=== PATIENT | male | born 1975 ===

== ENCOUNTER 2024-01-29 16:50 | Inpatient (IN) ==
--- NOTE | 2024-01-29 17:08 | ED Triage Note ---
Date of Service January 29, 2024 Provider in Triage Author: Mike Her History of Present Illness This patient was briefly evaluated while in triage. An abbreviated physical exam was performed. This patient is a 48-year-old Male who presents to the ED for evaluation at 1300, has had episodes of headache, pain/burning around left eye, right facial droop and weakness in right arm and leg last for less than 10 minutes, coming and going currently asymptomatic Physical Exam GENERAL: NAD, seated in wheelchair CARDIOVASCULAR: RRR RESPIRATORY: CTA NEURO: no facial droop, speech clear, no extremity weakness Initial orders for labs and / or imaging were placed and patient was placed in the waiting area until a bed is available. Please see further documentation for the full ED course. MDM / Impression Impression Impression: Stroke-like symptoms, Hypertensive emergency
[2024-01-29] MEDS: OPTIRAY 320 125ml IV ONE (17:27)
[2024-01-29 17:45] LABS: Basophils % (auto) 1.1 %; Eosinophils # (auto) 0.18 K/uL (0.00-0.50); Eosinophils % (auto) 1.9 %; Hematocrit (blood only) 39.7 % (42.0-52.0); Hemoglobin 13.1 g/dl (14.0-18.0); Immature Granulocytes # (auto) 0.02 K/uL (0.01-0.20); Immature Granulocytes % (auto) 0.2 %; Lymphocytes # (auto) 2.32 K/uL (1.20-3.40); Lymphocytes % (auto) 24.5 %; Mean Corpuscular Hemoglobin 28.9 pg (25.0-34.0); Mean Corpuscular Volume 87.6 fL (80.0-100.0); Mean Platelet Volume 10.8 fL (9.4-12.4); Monocytes # (auto) 0.62 K/uL (0.11-0.59); Monocytes % (auto) 6.6 %; Neutrophils # (auto) 6.22 K/uL (1.40-6.50); Neutrophils % (auto) 65.7 %; Platelet Count 280 K/uL (130-400); RDW Coefficient of Variation 12.8 % (11.5-14.5); RDW Standard Deviation 41.1 fL (36.4-46.3); Red Blood Count 4.53 M/uL (4.70-6.10); White Blood Count 9.46 K/ul (4.8-10.8)
--- NOTE | 2024-01-29 17:45 | CT Scan Report ---
Head CT without contrast CT angiogram of the neck CT angiogram of the brain with contrast Provided History: Neuro deficit Comparison: None Technique: HEAD CT: Using multidetector thin collimation helical acquisition technique, axial, coronal and sagittal CT images from the skull base to the vertex were obtained without intravenous contrast. HEAD and NECK CTA: During rapid bolus intravenous injection of nonionic contrast material, axial images were obtained using thin collimation multidetector helical technique from the base of the neck through the Vertex of vertex of the head. This CT angiogram data was reconstructed at thin intervals with mild overlap. 3D reconstructions were obtained. The axial source images, multiplanar reformations, 3D reconstructions in both maximum intensity projection display and volume rendered models were reviewed. Dose reduction techniques were achieved by using automatic exposure control and/or adjustment of mA and/or kV according to patient size and/or use of iterative reconstruction technique. Findings: Head CT: There is no intracranial hemorrhage, mass effect, or midline shift. Ray/white matter differentiation in both cerebral hemispheres is preserved. Ventricles are proportionate to the cerebral sulci. Head CTA demonstrates no aneurysm or stenosis of the major intracranial arteries. Neck CTA demonstrates no stenosis of the major cervical arteries. The origins of the great vessels from the aortic arch are patent. The normal distal right internal carotid artery measures 5 mm. The normal distal left internal carotid artery measures 5 mm. No mass is noted within the visualized portions of the cervical soft tissues or lung apices. Impression: 1. Head CTA demonstrates no aneurysm or stenosis of the major intracranial arteries, 2. Neck CTA demonstrates no stenosis of the major cervical arteries. 3. No intracranial hemorrhage on the noncontrast head CT. The study was analyzed using artificial intelligence software for large vessel occlusion detection. Findings discussed with the emergency room physician at 5:45 PM, 01/29/[address] Gerardo Electronically signed by Napoleon Gerardo 01-29-2024 5:45 PM
[2024-01-29 17:46] LABS: iSTAT Creatinine 0.8 mg/dl (0.6-1.3); iSTAT Hemoglobin 13.9 g/dl (14.0-18.0); iSTAT Ionized Calcium 1.14 mmol/l (1.12-1.32); iSTAT Potassium 3.6 mmol/L (3.3-5.0)
[2024-01-29] MEDS: LABETALOL HCL IV 5 MG/ML 20ML IV STA ×3 (17:49→18:29)
[2024-01-29] MEDS: LABETALOL HCL IV 5 MG/ML 20ML IV ONE (17:50)
--- NOTE | 2024-01-29 17:54 | Emergency Department Note ---
Impression & Plan Stroke-like symptoms, Hypertensive emergency ED Provider Note Provider: Mike Her MD DATE OF SERVICE: 01/29/2024 CHIEF COMPLAINT: Neurosymptoms HISTORY OF PRESENT ILLNESS: Patient is a 48-year-old gentleman denies medical history presenting here since 1 PM to experiencing pain around the left eye and intermittent episodes of numbness of the right face arm and leg with some weakness right arm and leg. Some slurred speech at times. No history of similar. No syncope or trauma. Symptoms lasted maybe 10 or 15 minutes and then resolved. No history of similar. No significant left arm or leg reported. No nausea or vomiting. No alcohol use reported today. Not on blood pressure medicine. Here with friend. PAST MEDICAL HISTORY: As noted above MEDICATIONS: None reported SOCIAL HISTORY: Denies smoking PHYSICAL EXAM: GENERAL: alert and oriented on stretcher, occasionally with a slight tremor Head: normocephalic and atraumatic EYES: No injection, discharge or icterus. PERRL, EOMI. NECK: Trachea midline. Supple. ENT: Mucous membranes pink and moist. Pharynx without erythema or exudate. LUNGS: Airway patent. No retractions. Breath sounds clear with good air entry bilaterally. HEART: Regular rate and rhythm. No chest wall tenderness ABDOMEN: Soft and non-tender, without guarding or rebound. SKIN: Acyanotic, warm, dry, without rashes EXTREMITIES: Without swelling, tenderness or deformity NEUROLOGICAL: Some slurred speech. No aphasia. Some weakness of the right leg and arm on exam. No obvious facial droop with midline tongue on exam. EK bpm normal sinus rhythm with LVH changes without acute ST segment elevation. Some nonspecific lateral T wave inversions. QTc 415. CONTINUOUS CARDIAC MONITORING: was ordered and showed a heart rate of 60s to 90s bpm in normal sinus rhythm Patient's laboratory studies and imaging reviewed. Differential includes Infection, dehydration, metabolic abnormality, hypo/hyperglycemia, electrolyte disturbance, anemia, hypoxia, cardiac sources, intracerebral event, toxicologic, neurologic, as well as other pathologies. IMPRESSION/MEDICAL DECISION MAKING: Stroke alert from triage. Severely hypertensive upon arrival. Having some waxing waning symptoms over the course of this afternoon. Occasional little bit drowsy but no LOC. CT head and CT angiograms obtained without acute findings per radiology. No reports of LVO. Discussed with telestroke case who evaluated the patient. Given some IV labetalol here upon returning from CT scan. Last known well 1 PM but again with waxing waning symptoms are occurring. Is seemingly returning to more normal status and the symptoms recur. No seizure activity or trauma reported. Afebrile. No substance use reported. No history of similar reported. Question of this could be some other pathology possibly hypertensive emergency/press. Blood work here without anemia or leukocytosis. Normal platelet count. No severe electrolyte abnormalities noted. Alcohol level not elevated. Telestroke evaluated given the significant waxing waning symptoms with recurrence after discussion risk and benefits patient did elect to proceed with thrombolysis. TNK ordered. In addition IV labetalol IV hydralazine used to try to control blood pressure which is still elevated making TN K use initially somewhat difficult. Nicardipine drip ordered and will be utilized as necessary for blood pressure. Discussed with patient as well as the telestroke doctor recent benefits of TNK and the possibility of possible life-threatening bleeding and with its use. Telestroke believes this is more likely stroke and unlikely to be seizure. Patient again with waxing waning symptoms here but given the frequent recurrence and recurring symptoms during his evaluation here, TNK ordered and some delay with administration given need for appropriate blood pressure control. Blood pressure improved and TNK administered again patient aware of risks and benefits. Patient will be admitted to the hospital for further monitoring and further stroke workup/neurological workup. Telestroke did later recommend loading with a gram of Keppra in case there may be any seizure component. Does occasionally have a tremor. Discussed with the hospitalist team as well as per the request of the ICU OVI. DIAGNOSIS: Strokelike symptoms, hypertension DISPOSITION: Hospitalist will evaluate Patient was agreeable with this plan. Critical Care I have personally spent 75 minutes of critical care time in the direct management of this patient. This includes bedside care, interpretation of diagnostic studies, and testing, discussion with consultants, patient, and family members, and other required patient management activities. These 75 minutes is in excess of all separately billable procedures. Past Med/Surg History Problem List (Updated 01/29/24 @ 18:26 by Mike Her M.D.) Hypertensive emergency (Acute) Stroke-like symptoms (Acute) Social History Smoking Status: Never smoker Feels Safe at Home: Yes Allergies Allergies Allergy/AdvReac Type Severity Reaction Status Date / Time No Known Allergies Allergy Unverified 01/29/24 19:11 Home Meds Home Medications Medication Instructions Recorded Confirmed No Known Home Medications 01/29/24 01/29/24 Results & Data (ED) Vital Signs Vital Signs - 24 hr 01/29/24 17:05 01/29/24 17:30 01/29/24 17:30 Temperature 36.6 C Temperature Source Temporal Artery Scan Pulse Rate 71 73 Pulse Rate [Apical] 66 Pulse Rate from SpO2 Sensor Pulse Rhythm Regular Pulse Rhythm [Apical] Regular Pulse Strength Normal Pulse Strength [Apical] Normal Respiratory Rate 20 18 20 Respiratory Effort / Characteristics Non-Labored Spontaneous Non-Labored Respiratory Depth Normal Normal Respiratory Pattern Blood Pressure 214/120 H 186/118 H Blood Pressure [Right Arm] 195/122 H Blood Pressure Mean 151 140 Blood Pressure Mean [Right Arm] 146 Blood Pressure Position [Right Arm] Lying Pulse Oximetry 96 99 98 Oxygen Delivery Method Room Air Room Air Room Air Sepsis Recent Fever Within 48 Hours No Sepsis New/Unexplained Change in Mental Status N/A Sepsis Action Taken by Nursing No Action Required 01/29/24 17:45 01/29/24 17:49 01/29/24 17:55 Temperature Temperature Source Pulse Rate 69 72 66 Pulse Rate [Apical] Pulse Rate from SpO2 Sensor 69 Pulse Rhythm Pulse Rhythm [Apical] Pulse Strength Pulse Strength [Apical] Respiratory Rate 22 Respiratory Effort / Characteristics Respiratory Depth Respiratory Pattern Blood Pressure 170/117 H 170/117 H Blood Pressure [Right Arm] Blood Pressure Mean 134 Blood Pressure Mean [Right Arm] Blood Pressure Position [Right Arm] Pulse Oximetry 98 Oxygen Delivery Method Sepsis Recent Fever Within 48 Hours Sepsis New/Unexplained Change in Mental Status Sepsis Action Taken by Nursing 01/29/24 17:58 01/29/24 18:07 01/29/24 18:09 Temperature Temperature Source Pulse Rate 68 69 Pulse Rate [Apical] 68 Pulse Rate from SpO2 Sensor 70 Pulse Rhythm Pulse Rhythm [Apical] Regular Pulse Strength Pulse Strength [Apical] Normal Respiratory Rate 20 20 21 Respiratory Effort / Characteristics Non-Labored Respiratory Depth Normal Respiratory Pattern Regular Blood Pressure 198/131 H 157/101 H Blood Pressure [Right Arm] 184/110 H Blood Pressure Mean 153 119 Blood Pressure Mean [Right Arm] 134 Blood Pressure Position [Right Arm] Lying Pulse Oximetry 96 97 100 Oxygen Delivery Method Room Air Room Air Sepsis Recent Fever Within 48 Hours Sepsis New/Unexplained Change in Mental Status Sepsis Action Taken by Nursing 01/29/24 18:10 01/29/24 18:11 01/29/24 18:15 Temperature Temperature Source Pulse Rate 80 85 Pulse Rate [Apical] 80 Pulse Rate from SpO2 Sensor 84 Pulse Rhythm Pulse Rhythm [Apical] Regular Pulse Strength Pulse Strength [Apical] Normal Respiratory Rate 18 19 Respiratory Effort / Characteristics Non-Labored Respiratory Depth Normal Respiratory Pattern Regular Blood Pressure 189/132 H 154/111 H Blood Pressure [Right Arm] 189/132 H Blood Pressure Mean 125 Blood Pressure Mean [Right Arm] 151 Blood Pressure Position [Right Arm] Lying Pulse Oximetry 99 99 Oxygen Delivery Method Room Air Room Air Sepsis Recent Fever Within 48 Hours Sepsis New/Unexplained Change in Mental Status Sepsis Action Taken by Nursing 01/29/24 18:28 01/29/24 18:29 01/29/24 18:30 Temperature Temperature Source Pulse Rate 83 Pulse Rate [Apical] 85 85 Pulse Rate from SpO2 Sensor Pulse Rhythm Pulse Rhythm [Apical] Regular Regular Pulse Strength Pulse Strength [Apical] Normal Normal Respiratory Rate 20 24 Respiratory Effort / Characteristics Non-Labored Non-Labored Respiratory Depth Normal Normal Respiratory Pattern Regular Regular Blood Pressure 154/111 H Blood Pressure [Right Arm] 118/66 115/72 Blood Pressure Mean Blood Pressure Mean [Right Arm] 83 86 Blood Pressure Position [Right Arm] Lying Lying Pulse Oximetry 97 98 Oxygen Delivery Method Room Air Sepsis Recent Fever Within 48 Hours Sepsis New/Unexplained Change in Mental Status Sepsis Action Taken by Nursing 01/29/24 18:45 01/29/24 19:00 01/29/24 19:00 Temperature Temperature Source Pulse Rate 86 Pulse Rate [Apical] 82 88 Pulse Rate from SpO2 Sensor Pulse Rhythm Pulse Rhythm [Apical] Regular Pulse Strength Pulse Strength [Apical] Normal Respiratory Rate 21 19 Respiratory Effort / Characteristics Non-Labored Labored Non-Labored Spontaneous Respiratory Depth Normal Normal Respiratory Pattern Regular Blood Pressure 128/82 Blood Pressure [Right Arm] 108/75 124/82 Blood Pressure Mean Blood Pressure Mean [Right Arm] 86 96 Blood Pressure Position [Right Arm] Lying Sitting Pulse Oximetry 98 97 Oxygen Delivery Method Room Air Room Air Sepsis Recent Fever Within 48 Hours Sepsis New/Unexplained Change in Mental Status Sepsis Action Taken by Nursing 01/29/24 19:15 Temperature Temperature Source Pulse Rate Pulse Rate [Apical] 85 Pulse Rate from SpO2 Sensor Pulse Rhythm Pulse Rhythm [Apical] Regular Pulse Strength Pulse Strength [Apical] Normal Respiratory Rate 20 Respiratory Effort / Characteristics Non-Labored Spontaneous Respiratory Depth Normal Respiratory Pattern Regular Blood Pressure Blood Pressure [Right Arm] 128/82 Blood Pressure Mean Blood Pressure Mean [Right Arm] 97 Blood Pressure Position [Right Arm] Sitting Pulse Oximetry 97 Oxygen Delivery Method Room Air Sepsis Recent Fever Within 48 Hours Sepsis New/Unexplained Change in Mental Status Sepsis Action Taken by Nursing Laboratory Data 01/29/24 17:29 01/29/24 17:29 Lab Results 01/29/24 01/29/24 01/29/24 Range/Units 17:29 17:34 19:21 WBC 9.46 (4.8-10.8) K/ul RBC 4.53 L (4.70-6.10) M/uL Hgb 13.1 L (14.0-18.0) g/dl POC Hgb 13.9 L (14.0-18.0) g/dl Hct 39.7 L (42.0-52.0) % POC Hct 41 L (42-52) % MCV 87.6 (80.0-100.0) fL MCH 28.9 (25.0-34.0) pg MCHC 33.0 (32.0-36.0) g/dL RDW Std Deviation 41.1 (36.4-46.3) fL RDW Coeff of Irina 12.8 (11.5-14.5) % Plt Count 280 (130-400) K/uL MPV 10.8 (9.4-12.4) fL Immature Gran % (Auto) 0.2 % Neut % (Auto) 65.7 % Lymph % (Auto) 24.5 % Barry % (Auto) 6.6 % Eos % (Auto) 1.9 % Baso % (Auto) 1.1 % Neut # (Auto) 6.22 (1.40-6.50) K/uL Lymph # (Auto) 2.32 (1.20-3.40) K/uL Barry # (Auto) 0.62 H (0.11-0.59) K/uL Eos # (Auto) 0.18 (0.00-0.50) K/uL Baso # (Auto) 0.10 (0.00-0.20) K/uL Immature Gran # (Auto) 0.02 (0.01-0.20) K/uL PT 11.0 (9.0-12.0) Seconds INR 1.0 (0.9-1.1) APTT 28 (21-31) Seconds PTT Ratio 1.0 POC Sodium 135 (135-144) mmol/L Sodium 133 L (136-145) mmol/L POC Potassium 3.6 (3.3-5.0) mmol/L Potassium 3.6 (3.5-5.1) mmol/L POC Chloride 101 (101-112) mmol/L Chloride 102 (98-107) mmol/L Carbon Dioxide 25 (21-32) mmol/L POC Total CO2 20 L (24-31) mmol/L Anion Gap 6 (3-11) POC Anion Gap 18.0 (16-25) mmol/L POC BUN 14 (7-18) mg/dl BUN 14 (6-23) mg/dl Creatinine 0.77 (0.6-1.4) mg/dl POC Creatinine 0.8 (0.6-1.3) mg/dl Est Cr Clr Drug Dosing 99.3 ml/min eGFR 111.12 BUN/Creatinine Ratio 18.2 (10-20) Glucose 94 (70-99(Fasting)) mg/dl POC Glucose (other) 95 (70-99) mg/dl Calcium 9.1 (8.6-10.3) mg/dl POC Ioniz Calcium Mei 1.14 (1.12-1.32) mmol/l Magnesium 1.8 (1.7-2.4) mg/dl Total Bilirubin 0.4 (0.2-1.0) mg/dl AST 18 (13-39) U/L ALT 15 (7-52) U/L Alkaline Phosphatase 70 (34-104) U/L Troponin I High Sens 5.7 (0-20) pg/ml Total Protein 6.7 (6.0-8.3) gm/dl Albumin 4.1 (3.4-5.0) gm/dl Globulin 2.6 (2.5-4.0) gm/dl Albumin/Globulin Ratio 1.6 (0.9-2) Urine Opiates Screen Neg (Neg) Ur Methadone, Qual Neg (Neg) Urine Fentanyl Screen Neg (Neg) Urine Barbiturates Neg (Neg) Ur Phencyclidine (PCP) Neg (Neg) U Amphetamin/Meth Scrn Neg (Neg) MDMA (Ecstasy) Screen Neg (Neg) U Benzodiazepines Scrn Neg (Neg) Ur Cocaine Metabolite Neg (Neg) U Marijuana (THC) Screen Neg (Neg) Ethyl Alcohol mg/dL < 10.0 (<10.0) mg/dl Lyme Disease Screen Negative (Negative) Administered Medications Discontinued Medications Hydralazine HCl (Hydralazine Hcl 20 Mg/Ml Vial) Confirm Administered Dose 20 mg .ROUTE .STK-MED ONE Stop: 01/29/24 18:03 Last Admin: 01/29/24 18:06 Dose: Not Given Documented By: SRL Hydralazine HCl (Hydralazine Hcl 20 Mg/Ml Vial) 10 mg IV NOW STA Stop: 01/29/24 18:06 Last Admin: 01/29/24 18:06 Dose: 10 mg Documented By: SRL Hydralazine HCl (Hydralazine Hcl 20 Mg/Ml Vial) 10 mg IV NOW STA Stop: 01/29/24 18:10 Last Admin: 01/29/24 18:10 Dose: 10 mg Documented By: SRL Tenecteplase 17 mg/ Syringe 3.4 mls @ 40.8 mls/min IV NOW ONE; Protocol Stop: 01/29/24 18:15 Last Admin: 01/29/24 18:29 Dose: 40.8 mls/min Documented By: SRL Co-signed By: TOÑITO Ioversol (Optiray 320 125ml) 119 ml IV ONCE ONE Stop: 01/29/24 17:27 Last Admin: 01/29/24 17:27 Dose: 119 ml Documented By: IRENE Labetalol HCl (Labetalol Hcl Iv 5 Mg/Ml 20ml) Confirm Administered Dose 5 mg IV .STK-MED ONE Stop: 01/29/24 17:34 Last Admin: 01/29/24 17:50 Dose: Not Given Documented By: SRL Labetalol HCl (Labetalol Hcl Iv 5 Mg/Ml 20ml) 10 mg IV NOW STA Stop: 01/29/24 17:40 Last Admin: 01/29/24 17:49 Dose: 10 mg Documented By: SRL Labetalol HCl (Labetalol Hcl Iv 5 Mg/Ml 20ml) 10 mg IV NOW STA Stop: 01/29/24 18:10 Last Admin: 01/29/24 18:10 Dose: 10 mg Documented By: SRL Labetalol HCl (Labetalol Hcl Iv 5 Mg/Ml 20ml) 10 mg IV NOW STA Stop: 01/29/24 18:17 Last Admin: 01/29/24 18:29 Dose: 10 mg Documented By: SRL Levetiracetam (Levetiracetam 500 Mg/5 Ml Vial) 1,000 mg IV NOW STA Stop: 01/29/24 18:34 Last Admin: 01/29/24 19:11 Dose: 1,000 mg Documented By: DANIELA Miscellaneous (Stat Iv/Im) 1 each N/A NOW STA Stop: 01/29/24 18:05 Last Admin: 01/29/24 19:17 Dose: Not Given Documented By: MARTIN Miscellaneous (Stat Iv Infusion Titration Per Protocol) 1 each N/A NOW STA Stop: 01/29/24 18:17 Last Admin: 01/29/24 18:32 Dose: 1 each Documented By: SRL Sodium Chloride (Sodium Chloride 0.9% 10ml Flush) 20 ml IV NOW STA Stop: 01/29/24 18:05 Last Admin: 01/29/24 18:32 Dose: 20 ml Documented By: SRL Imaging Data Radiologist's Impression: Head CT 01/29/24 17:[address] without contrast CT angiogram of the neck CT angiogram of the brain with contrast Provided History: Neuro deficit Comparison: None Technique: HEAD CT: Using multidetector thin collimation helical acquisition technique, axial, coronal and sagittal CT images from the skull base to the vertex were obtained without intravenous contrast. HEAD and NECK CTA: During rapid bolus intravenous injection of nonionic contrast material, axial images were obtained using thin collimation multidetector helical technique from the base of the neck through the Vertex of vertex of the head. This CT angiogram data was reconstructed at thin intervals with mild overlap. 3D reconstructions were obtained. The axial source images, multiplanar reformations, 3D reconstructions in both maximum intensity projection display and volume rendered models were reviewed. Dose reduction techniques were achieved by using automatic exposure control and/or adjustment of mA and/or kV according to patient size and/or use of iterative reconstruction technique. Findings: Head CT: There is no intracranial hemorrhage, mass effect, or midline shift. Ray/white matter differentiation in both cerebral hemispheres is preserved. Ventricles are proportionate to the cerebral sulci. Head CTA demonstrates no aneurysm or stenosis of the major intracranial arteries. Neck CTA demonstrates no stenosis of the major cervical arteries. The origins of the great vessels from the aortic arch are patent. The normal distal right internal carotid artery measures 5 mm. The normal distal left internal carotid artery measures 5 mm. No mass is noted within the visualized portions of the cervical soft tissues or lung apices. Impression: 1. Head CTA demonstrates no aneurysm or stenosis of the major intracranial arteries, 2. Neck CTA demonstrates no stenosis of the major cervical arteries. 3. No intracranial hemorrhage on the noncontrast head CT. The study was analyzed using artificial intelligence software for large vessel occlusion detection. Findings discussed with the emergency room physician at 5:45 PM, 01/29/[address] Gerardo Electronically signed by Napoleon Gerardo 01-29-2024 5:45 PM Head CTA 01/29/24 17:[address] without contrast CT angiogram of the neck CT angiogram of the brain with contrast Provided History: Neuro deficit Comparison: None Technique: HEAD CT: Using multidetector thin collimation helical acquisition technique, axial, coronal and sagittal CT images from the skull base to the vertex were obtained without intravenous contrast. HEAD and NECK CTA: During rapid bolus intravenous injection of nonionic contrast material, axial images were obtained using thin collimation multidetector helical technique from the base of the neck through the Vertex of vertex of the head. This CT angiogram data was reconstructed at thin intervals with mild overlap. 3D reconstructions were obtained. The axial source images, multiplanar reformations, 3D reconstructions in both maximum intensity projection display and volume rendered models were reviewed. Dose reduction techniques were achieved by using automatic exposure control and/or adjustment of mA and/or kV according to patient size and/or use of iterative reconstruction technique. Findings: Head CT: There is no intracranial hemorrhage, mass effect, or midline shift. Ray/white matter differentiation in both cerebral hemispheres is preserved. Ventricles are proportionate to the cerebral sulci. Head CTA demonstrates no aneurysm or stenosis of the major intracranial arteries. Neck CTA demonstrates no stenosis of the major cervical arteries. The origins of the great vessels from the aortic arch are patent. The normal distal right internal carotid artery measures 5 mm. The normal distal left internal carotid artery measures 5 mm. No mass is noted within the visualized portions of the cervical soft tissues or lung apices. Impression: 1. Head CTA demonstrates no aneurysm or stenosis of the major intracranial arteries, 2. Neck CTA demonstrates no stenosis of the major cervical arteries. 3. No intracranial hemorrhage on the noncontrast head CT. The study was analyzed using artificial intelligence software for large vessel occlusion detection. Findings discussed with the emergency room physician at 5:45 PM, 01/29/[address] Gerardo Electronically signed by Napoleon Gerardo 01-29-2024 5:45 PM Neck CTA 01/29/24 17:[address] without contrast CT angiogram of the neck CT angiogram of the brain with contrast Provided History: Neuro deficit Comparison: None Technique: HEAD CT: Using multidetector thin collimation helical acquisition technique, axial, coronal and sagittal CT images from the skull base to the vertex were obtained without intravenous contrast. HEAD and NECK CTA: During rapid bolus intravenous injection of nonionic contrast material, axial images were obtained using thin collimation multidetector helical technique from the base of the neck through the Vertex of vertex of the head. This CT angiogram data was reconstructed at thin intervals with mild overlap. 3D reconstructions were obtained. The axial source images, multiplanar reformations, 3D reconstructions in both maximum intensity projection display and volume rendered models were reviewed. Dose reduction techniques were achieved by using automatic exposure control and/or adjustment of mA and/or kV according to patient size and/or use of iterative reconstruction technique. Findings: Head CT: There is no intracranial hemorrhage, mass effect, or midline shift. Ray/white matter differentiation in both cerebral hemispheres is preserved. Ventricles are proportionate to the cerebral sulci. Head CTA demonstrates no aneurysm or stenosis of the major intracranial arteries. Neck CTA demonstrates no stenosis of the major cervical arteries. The origins of the great vessels from the aortic arch are patent. The normal distal right internal carotid artery measures 5 mm. The normal distal left internal carotid artery measures 5 mm. No mass is noted within the visualized portions of the cervical soft tissues or lung apices. Impression: 1. Head CTA demonstrates no aneurysm or stenosis of the major intracranial arteries, 2. Neck CTA demonstrates no stenosis of the major cervical arteries. 3. No intracranial hemorrhage on the noncontrast head CT. The study was analyzed using artificial intelligence software for large vessel occlusion detection. Findings discussed with the emergency room physician at 5:45 PM, 01/29/[address] Gerardo Electronically signed by Napoleon Gerardo 01-29-2024 5:45 PM Brain MRI 01/29/24 19:04 Exam(s): MRI HEAD Without Contrast EXAM: MR Head Without Intravenous Contrast CLINICAL HISTORY: Reason for exam: Post TNKase. TECHNIQUE: Magnetic resonance images of the head/brain without intravenous contrast in multiple planes. COMPARISON: Head CT 01/29/2024 FINDINGS: Brain: No restricted diffusion. No intracranial hemorrhage. 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 Mild periventricular and subcortical T2/flair hyperintensities as can be seen in the setting of chronic microvascular ischemic changes. Ventricles: Unremarkable. No ventriculomegaly. Bones/joints: Unremarkable. No acute fracture. Sinuses: Unremarkable as visualized. No acute sinusitis. Mastoid air cells: Unremarkable as visualized. No mastoid effusion. Orbits: Unremarkable as visualized. IMPRESSION: No acute findings in the head/brain. Electronically signed by: Guillaume Kruse MD 01/29/24 21:46 PM Discharge Plan Visit Data Chief Complaint: Illness Stated Complaint: EYES, BURNING, DIZZY, RT SIDE NUMBNESS ED Provider: Mike Her Discharge Problem: Stroke-like symptoms, Hypertensive emergency Patient Disposition: Admitted As Inpatient Discharge Instructions Interventions: ED Discharge Assessment Last Done: 01/29/24 20:20
[2024-01-29 18:01] LABS: Albumin Globulin Ratio 1.6 (0.9-2); Albumin Level 4.1 gm/dl (3.4-5.0); BUN Creatinine Ratio 18.2 (10-20); Bilirubin,Total 0.4 mg/dl (0.2-1.0); Calcium 9.1 mg/dl (8.6-10.3); Creatinine Clr Calc Pharmacy 99.3 ml/min; Globulin 2.6 gm/dl (2.5-4.0); Magnesium 1.8 mg/dl (1.7-2.4); Potassium 3.6 mmol/L (3.5-5.1); Total Protein 6.7 gm/dl (6.0-8.3)
[2024-01-29] MEDS: hydrALAZINE HCL 20 MG/ML VIAL ONE (18:06)
[2024-01-29] MEDS: hydrALAZINE HCL 20 MG/ML VIAL IV STA ×2 (18:06→18:10)
[2024-01-29 18:07] LABS: Troponin I High Sensitivity 5.7 pg/ml (0-20)
[2024-01-29 18:10] LABS: Partial Thromboplastin Time 28 Seconds (21-31)
[2024-01-29] MEDS ORDERED: No Aspirin within 24hrs of THROMBOLYTIC-Stroke PO SCH (18:15)
[2024-01-29] MEDS: TENECTEPLASE IV ONE (18:29)
[2024-01-29] MEDS: SODIUM CHLORIDE 0.9% 10ML FLUSH IV STA (18:32)
[2024-01-29] MEDS: STAT IV Infusion **Titration per Protocol STA (18:32)
[2024-01-29] MEDS ORDERED: PHARMACIST DISCHARGE MED REC CONSULT PRN ×2 (19:01→19:31)
--- NOTE | 2024-01-29 19:01 | History & Physical Report ---
Date of Service January 29, 2024 Assessment & Plan (1) Stroke-like symptoms: Plan: Strokelike deficits Left eye pain, right face numbness, right arm and leg weakness/numbness. Waxing and waning symptoms CThead, CTA without acute findings TNKase was recommended by telestroke. Patient used IV labetalol and hydralazine for antihypertensive control. Was ordered nicardipine drip however blood pressure came within target parameters prior to this being started. Subsequently received TNKase TNKase was given at 1829 hrs. Admitted to ICU for post thrombolytic monitoring per protocol MRI pending Goal BP parameters 180/105 At bedside patient is having akathetic movements of the right arm and right leg. Does not lose consciousness during these. Intermittent rhythmic large movements and no loss of consciousness during. No incontinence. Lyme pending. UDS pending. Patient denies recreational drug use, alcohol use, tobacco use Keppra given and continued per telestroke recommendations. Seizure precautions. Ativan available on-call if needed Lyme pending Hypertensive emergency With strokelike symptoms BP greater than 220 on ER assessment. DDx includes hypertensive encephalopathy 120s post labetalol and hydralazine Was ordered and nicardipine drip however patient is 1001 30 prior to this being initiated, this is discontinued Continued on labetalol push as needed to maintain blood pressure goal <180/105 per TNKase protocol No prior medical history, patient does not follow-up with a physician or take any prescription medications DVT prophylaxis: SCDs Disposition: ICU CODE STATUS: Full code. (2) Hypertensive emergency: History of Present Illness Primary Care Provider: NO PCP Avelino is a 48-year-old male with no past medical history takes no chronic medications who presents to the ER with left eye pain, and right face/arm numbness and right arm and leg weakness with acute onset and waxing and waning severity. Symptoms lasted 15 minutes and then recurred intermittently. CThead, CTA without acute findings Patient was evaluated telestroke and with waxing waning symptoms was recommended for TNKase Was hypertensive, received IV labetalol and hydralazine. Did have elevated blood pressure control and nicardipine was ordered however patient's blood pressure dropped prior to initiating this and he was given TNKase. Mikal is seen at the bedside. He reports that he felt normal up until the last day or so. Endorses in the last 1-2 days has had intermittent jerking of his right arm and leg in addition to some weakness and numbness. Has also had some right sided facial numbness. Additionally had some left eye pain prior to his symptoms worsening today, eye pain is resolved at time of bedside visit. Patient initially responds that his vision is clear and no double vision, reports later on reassessment that he has double vision but cannot clarify if this is vertical or horizontal and then again denies double vision afterwards. Denies fever chills or sweats. Denies insect bites. enies prior history of seizure. He has no medical problems but notes he does not follow with a doctor. He is not take any prescription medications. Denies [id number] supplement use. Denies tobacco alcohol and recreational drug use. Denies family history of similar symptoms. He has not been sick recently. Medical History: Reviewed Medications: Reviewed Surgical History: Reviewed Family history: Reviewed Allergies: Reviewed Social History: Denies tobacco/etoh/drug use Code Status: Full Allergies Allergy/AdvReac Type Severity Reaction Status Date / Time No Known Allergies Allergy Unverified 01/29/24 19:11 Home Medications Medication Instructions Recorded Confirmed Type No Known Home Medications 01/29/24 01/29/24 History Past Med/Surg History Problem List Chronic cerebral ischemia Hypertensive emergency (Acute) Stroke-like symptoms (Acute) Social History Smoking Status: Never smoker Hx Alcohol Use: No Hx Substance Use: Yes Last Used Substance: Days (ago) Last Used Substance Other:: 01/19/2024 per patient Preferred Language: Bahamian Communication Ability: Effective Communication Tools: Other Payroll Analyst Required: Yes Beliefs That Will Affect Care: None Current Living Situation: Spouse current occupational status: unemployed 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 Answers most questions appropriately. Patient is having akathetic movements of his right arm right leg and some contractures of his neck. He does not have pain on neck flexion HEENT: Vision grossly intact. Pupils equal and reactive to light. No photosensitivity Pulm: CTAB A&P. -wheezes, -rales, -rhonchi. Symmetrical chest rise. No increased work of breathing. No respiratory distress. Cardiac: RRR, -mrg. Radial pulses intact and symmetrical. Abdominal: Nontender, nondistended, soft. 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 Does have akathetic movements of the right arm and right leg but does follow commands for strength testing and strength is intact. Does not have akathetic movements of the left arm or leg. Sensation to soft touch in hand and feet is intact and reportedly equal at time of assessment. Results & Data Results & Data Vital Signs (Past 12 Hours) Vital Signs Temp Pulse Pulse Resp BP BP Pulse Ox 01/29/24 18:45 82 21 108/75 98 01/29/24 18:30 85 24 115/72 98 01/29/24 18:29 83 154/111 H 01/29/24 18:28 85 20 118/66 97 01/29/24 18:15 85 19 154/111 H 99 01/29/24 18:11 80 18 189/132 H 99 01/29/24 18:10 80 189/132 H 01/29/24 18:09 69 21 157/101 H 100 01/29/24 18:07 68 20 184/110 H 97 01/29/24 17:58 68 20 198/131 H 96 01/29/24 17:55 66 01/29/24 17:49 72 170/117 H 01/29/24 17:45 69 22 170/117 H 98 01/29/24 17:30 73 20 186/118 H 98 01/29/24 17:30 66 18 195/122 H 99 01/29/24 17:05 36.6 C 71 20 214/120 H 96 O2 Del Method 01/29/24 18:45 Room Air 01/29/24 18:30 Room Air 01/29/24 18:29 01/29/24 18:28 01/29/24 18:15 Room Air 01/29/24 18:11 Room Air 01/29/24 18:10 01/29/24 18:09 01/29/24 18:07 Room Air 01/29/24 17:58 Room Air 01/29/24 17:55 01/29/24 17:49 01/29/24 17:45 01/29/24 17:30 Room Air 01/29/24 17:30 Room Air 01/29/24 17:05 Room Air PG Care Time/CCT Total # of Minutes Spent Total Time Spent with Patient: Total time spent is greater than 50% in coordination of care (as documented) at patient's floor/unit and/or counseling patient: Coding Level of Care Code 13739 INT INP/OBS CARE 3/75MIN Diagnoses Stroke-like symptoms R29.90 Hypertensive emergency I16.1
[2024-01-29] MEDS: levETIRAcetam 500 MG/5 ML VIAL IV STA (19:11)
[2024-01-29] MEDS: STAT IV/IM STA (19:17)
[2024-01-29] MEDS ORDERED: LORazepam 2 MG/1 ML VIAL IV PRN (19:30)
[2024-01-29] MEDS ORDERED: LABETALOL HCL IV 5 MG/ML 20ML IV PRN (19:31)
[2024-01-29 20:29] LABS: Amphetamines+Metham, Urine Neg (Neg); Barbiturates, Urine Neg (Neg); Benzodiazepine, Urine Neg (Neg); Cocaine, Urine Neg (Neg); Fentanyl, Urine Neg (Neg); MDMA (Ecstacy), Urine Neg (Neg); Marijuana, Urine Neg (Neg); Methadone, Urine Neg (Neg); Opiate, Urine Neg (Neg); Phencyclidine, Urine Neg (Neg)
--- NOTE | 2024-01-29 20:59 | Critical Care Consultation ---
Date of Consultation January 29, 2024 Assessment & Plan (1) Stroke-like symptoms: (2) Hypertensive emergency: Plan Reason Critically Ill: 48 YOM with no reported medial history presented with- left eye pain, right side weakness, right facial droop- was deemed Thrombolytic candidate- 1828. To ICU for continued neurological evaluations and hemodynamic monitoring post thrombolytic administration. Neuro - Stroke symptoms, s/p thromoblytic administration, possible seizure activity CAM ICU: NEGATIVE - Patient with symptoms as above and per exam with current NIHSS of 6 - DDX: Stroke vs. hypertensive emergency vs. post ictal/Niles's paralysis vs. other - CT, CTA head and neck - negative for stenosis, aneurysm, or other vascular anomalies - 24 hour post Thrombolytics (1828)- BP <180/105 goals- PRN labetalol and hydralazine- Cardene if needed - ASA to start 24 hour post thrombolytics - Lipid panel in am - initiate statin based on numbers - ECHO with bubble - STOP Bang- 0 low risk - Telemetry monitoring for arrhythmia- consider extended monitoring as outpatient if recommended - Swallow screen in am - MRI completed- awaiting results and images - Tox screen negative and lyme pending - Will add TSH and RPR - Possible seizure activity- with akinesthesias, but not rhythmic and no LOC- follow closely- continue keppra 500mg q12 Cardiac - Hypertensive emergency/urgency without underlying diagnosis of hypertension - follow trends- allow permissive HTN following administration of thrombolytics and poss CVA - follow on treatment per hospitalist/PCP Respiratory - No acute needs GI - No acute needs RENAL/LYTES - No acute needs - No acute needs ENDO - NO acute needs - ICU hyperglycemic protocol HEME - No acute needs ID - NO concern for infective etiology at this time LINES/IV ACCESS - PIV Continue use of these lines DVT PROPHYLAXIS - SCDs, chemoprophylaxis contraindicated 24 hours post Thrombolytics DISPO: ICU 24 hours post thrombolytic administration follow neurological and hemodynamic monitoring I have personally spent 45 minutes of critical care time in the direct management of this patient. This is a life/limb threatening event. This includes time spent evaluating patient, direct bedside care, chart review, placing o rders, interpretation of diagnostic studies, discussion with consultants, patient, and family members, as well as other required patient management activities. This time is exclusive of all separately billable procedures, separate from and in addition to any other service time. Thank you for allowing us to participate in the care of this patient. Please refer to my attending physician's documentation for any further recommendations. History of Present Illness Reason for Consultation: Stroke like symptoms s/p thrombolytics Requesting Physician: Lamin Patel MD Attending Physician: Yesenia Rollins MD History of Present Illness 48 YOM with no reported medical history and no reported medications at home. Patient presents to the EMD today for complaints of headahe, left eye burning/pain and right arm and leg weakness. Patient reports that his symptoms started this morning with the eye pain and progressed with arm and leg weakness, it is difficult to get a time of onset from him, however EMD has last known well at 1300. Patient reports that initially it felt like his right arm and leg weakness were getting better on the way to the EMD, however worsened again, and he feels like his symptoms are worse now than this morning. Of note the patient was hypertensive on arrival and also reports 1-3 days of intermittens arm tingling and twitching. He was stroke alerted in the EMD, CT head, CTA head and neck- were negative for LVO or hemorrhage or aneurysms, and following discussion with teleneurology, the patient was deemed thrombolytic candidate. Following lowering of his blood pressure which required multiple doses of Labatelol and Hydralazine, he received TNK at 1829. Patient was also started on Keppra for possible seizure like activity preceding today's events. Tox screen was also performed which was all negative as well as ETOH. NIHSS on arrival to EMD reported as 6. CODE: FULL Allergies Allergy/AdvReac Type Severity Reaction Status Date / Time No Known Allergies Allergy Unverified 01/29/24 19:11 Home Medications Medication Instructions Recorded Confirmed Type No Known Home Medications 01/29/24 01/29/24 History Patient History Social History Smoking Status: Never smoker Hx Alcohol Use: No Hx Substance Use: Yes Last Used Substance: Days (ago) Last Used Substance Other:: 01/19/2024 per patient Preferred Language: Thai Communication Ability: Effective Communication Tools: Other Cuff Turner Required: Yes Beliefs That Will Affect Care: None Current Living Situation: Spouse Feels Safe at Home: Yes Safety Concerns: Feels Safe At This Time Assistive Devices: None Review of Systems Review of Systems: REVIEW OF SYSTEMS: Constitutional: No fever, sweats or chills Eyes: No diplopia, no worsening or blurred vision ENT: normal hearing, no trouble swallowing Respiratory: No cough, sputum, dyspnea at rest or on exertion Cardiovascular: No chest pain, tightness or palpitations Abdomen: No pain, nausea, vomiting, diarrhea or constipation Musculoskeletal: No joint pain, calf pain, swelling Neurologic: (+) headache, weakness, numbness/tingling, akisthesias, Skin: No rash or itch Physical Exam Physical Exam: PHYSICAL EXAM: General: awake, alert, no apparent distress Head: Normocephalic, atraumatic Neuro: AAO x 3, speech slow may have mild dysarthria as he is also with accent, strength left intact bilaterally 5/5, strength right 3/5 upper, 4/5 lower, sensation intact and equal all extremities and dermatomes, (+)pronator drift, no visual field cuts, and limb ataxia in right upper and lower- NIHSS 6 Chest: equal rise and fall of the chest, no accessory muscle use, no heaves or thrills, Clear to auscultation, on room air, Cardiac: Regular rate and rhythm, telemetry reviewed, skin warm dry, cap refill <3 seconds, peripheral pulses +2 no JVD, no murmur, no JVD, no edema GI: NABS x 4 quadrants, soft, nontender to palpation, no rebound, guarding or tenderness : Spontaneously voiding, no pain, no CVA tenderness, Extremities: Normal inspection, no peripheral edema or erythema, calfs nontender to palpation Psych: Normal mood and affect Skin: no rash or erythema Results & Data Results & Data Vital Signs (Past 12 Hours) Vital Signs Temp Pulse Pulse Resp BP BP BP 01/29/24 20:20 80 19 122/69 01/29/24 19:45 87 18 110/64 01/29/24 19:30 89 24 130/68 01/29/24 19:15 85 20 128/82 01/29/24 19:00 86 128/82 01/29/24 19:00 88 19 124/82 01/29/24 18:45 82 21 108/75 01/29/24 18:30 85 24 115/72 01/29/24 18:29 83 154/111 H 01/29/24 18:28 85 20 118/66 01/29/24 18:15 85 19 154/111 H 01/29/24 18:11 80 18 189/132 H 01/29/24 18:10 80 189/132 H 01/29/24 18:09 69 21 157/101 H 01/29/24 18:07 68 20 184/110 H 01/29/24 17:58 68 20 198/131 H 01/29/24 17:55 66 01/29/24 17:49 72 170/117 H 01/29/24 17:45 69 22 170/117 H 01/29/24 17:30 73 20 186/118 H 01/29/24 17:30 66 18 195/122 H 01/29/24 17:05 36.6 C 71 20 214/120 H Pulse Ox O2 Del Method 01/29/24 20:20 96 Room Air 01/29/24 19:45 96 Room Air 01/29/24 19:30 96 Room Air 01/29/24 19:15 97 Room Air 01/29/24 19:00 01/29/24 19:00 97 Room Air 01/29/24 18:45 98 Room Air 01/29/24 18:30 98 Room Air 01/29/24 18:29 01/29/24 18:28 97 01/29/24 18:15 99 Room Air 01/29/24 18:11 99 Room Air 01/29/24 18:10 01/29/24 18:09 100 01/29/24 18:07 97 Room Air 01/29/24 17:58 96 Room Air 01/29/24 17:55 01/29/24 17:49 01/29/24 17:45 98 01/29/24 17:30 98 Room Air 01/29/24 17:30 99 Room Air 01/29/24 17:05 96 Room Air Laboratory Results Abnormal lab results 01/29/24 01/29/24 Range/Units 17:29 17:34 RBC 4.53 L (4.70-6.10) M/uL Hgb 13.1 L (14.0-18.0) g/dl POC Hgb 13.9 L (14.0-18.0) g/dl Hct 39.7 L (42.0-52.0) % POC Hct 41 L (42-52) % [place] # (Auto) 0.62 H (0.11-0.59) K/uL Sodium 133 L (136-145) mmol/L POC Total CO2 20 L (24-31) mmol/L Diagnostic Findings Head CT 01/29/24 17:[address] without contrast CT angiogram of the neck CT angiogram of the brain with contrast Provided History: Neuro deficit Comparison: None Technique: HEAD CT: Using multidetector thin collimation helical acquisition technique, axial, coronal and sagittal CT images from the skull base to the vertex were obtained without intravenous contrast. HEAD and NECK CTA: During rapid bolus intravenous injection of nonionic contrast material, axial images were obtained using thin collimation multidetector helical technique from the base of the neck through the Vertex of vertex of the head. This CT angiogram data was reconstructed at thin intervals with mild overlap. 3D reconstructions were obtained. The axial source images, multiplanar reformations, 3D reconstructions in both maximum intensity projection display and volume rendered models were reviewed. Dose reduction techniques were achieved by using automatic exposure control and/or adjustment of mA and/or kV according to patient size and/or use of iterative reconstruction technique. Findings: Head CT: There is no intracranial hemorrhage, mass effect, or midline shift. Ray/white matter differentiation in both cerebral hemispheres is preserved. Ventricles are proportionate to the cerebral sulci. Head CTA demonstrates no aneurysm or stenosis of the major intracranial arteries. Neck CTA demonstrates no stenosis of the major cervical arteries. The origins of the great vessels from the aortic arch are patent. The normal distal right internal carotid artery measures 5 mm. The normal distal left internal carotid artery measures 5 mm. No mass is noted within the visualized portions of the cervical soft tissues or lung apices. Impression: 1. Head CTA demonstrates no aneurysm or stenosis of the major intracranial arteries, 2. Neck CTA demonstrates no stenosis of the major cervical arteries. 3. No intracranial hemorrhage on the noncontrast head CT. The study was analyzed using artificial intelligence software for large vessel occlusion detection. Findings discussed with the emergency room physician at 5:45 PM, 01/29/[address] Gerardo Electronically signed by Napoleon Gerardo 01-29-2024 5:45 PM Head CTA 01/29/24 17:[address] without contrast CT angiogram of the neck CT angiogram of the brain with contrast Provided History: Neuro deficit Comparison: None Technique: HEAD CT: Using multidetector thin collimation helical acquisition technique, axial, coronal and sagittal CT images from the skull base to the vertex were obtained without intravenous contrast. HEAD and NECK CTA: During rapid bolus intravenous injection of nonionic contrast material, axial images were obtained using thin collimation multidetector helical technique from the base of the neck through the Vertex of vertex of the head. This CT angiogram data was reconstructed at thin intervals with mild overlap. 3D reconstructions were obtained. The axial source images, multiplanar reformations, 3D reconstructions in both maximum intensity projection display and volume rendered models were reviewed. Dose reduction techniques were achieved by using automatic exposure control and/or adjustment of mA and/or kV according to patient size and/or use of iterative reconstruction technique. Findings: Head CT: There is no intracranial hemorrhage, mass effect, or midline shift. Ray/white matter differentiation in both cerebral hemispheres is preserved. Ventricles are proportionate to the cerebral sulci. Head CTA demonstrates no aneurysm or stenosis of the major intracranial arteries. Neck CTA demonstrates no stenosis of the major cervical arteries. The origins of the great vessels from the aortic arch are patent. The normal distal right internal carotid artery measures 5 mm. The normal distal left internal carotid artery measures 5 mm. No mass is noted within the visualized portions of the cervical soft tissues or lung apices. Impression: 1. Head CTA demonstrates no aneurysm or stenosis of the major intracranial arteries, 2. Neck CTA demonstrates no stenosis of the major cervical arteries. 3. No intracranial hemorrhage on the noncontrast head CT. The study was analyzed using artificial intelligence software for large vessel occlusion detection. Findings discussed with the emergency room physician at 5:45 PM, 01/29/[address] Gerardo Electronically signed by Npaoleon Gerardo 01-29-2024 5:45 PM Neck CTA 01/29/24 17:[address] without contrast CT angiogram of the neck CT angiogram of the brain with contrast Provided History: Neuro deficit Comparison: None Technique: HEAD CT: Using multidetector thin collimation helical acquisition technique, axial, coronal and sagittal CT images from the skull base to the vertex were obtained without intravenous contrast. HEAD and NECK CTA: During rapid bolus intravenous injection of nonionic contrast material, axial images were obtained using thin collimation multidetector helical technique from the base of the neck through the Vertex of vertex of the head. This CT angiogram data was reconstructed at thin intervals with mild overlap. 3D reconstructions were obtained. The axial source images, multiplanar reformations, 3D reconstructions in both maximum intensity projection display and volume rendered models were reviewed. Dose reduction techniques were achieved by using automatic exposure control and/or adjustment of mA and/or kV according to patient size and/or use of iterative reconstruction technique. Findings: Head CT: There is no intracranial hemorrhage, mass effect, or midline shift. Ray/white matter differentiation in both cerebral hemispheres is preserved. Ventricles are proportionate to the cerebral sulci. Head CTA demonstrates no aneurysm or stenosis of the major intracranial arteries. Neck CTA demonstrates no stenosis of the major cervical arteries. The origins of the great vessels from the aortic arch are patent. The normal distal right internal carotid artery measures 5 mm. The normal distal left internal carotid artery measures 5 mm. No mass is noted within the visualized portions of the cervical soft tissues or lung apices. Impression: 1. Head CTA demonstrates no aneurysm or stenosis of the major intracranial arteries, 2. Neck CTA demonstrates no stenosis of the major cervical arteries. 3. No intracranial hemorrhage on the noncontrast head CT. The study was analyzed using artificial intelligence software for large vessel occlusion detection. Findings discussed with the emergency room physician at 5:45 PM, 01/29/[address] Gerardo Electronically signed by Napoleon Gerardo 01-29-2024 5:45 PM Medications Administered Discontinued Medications Hydralazine HCl (Hydralazine Hcl 20 Mg/Ml Vial) Confirm Administered Dose 20 mg .ROUTE .STK-MED ONE Stop: 01/29/24 18:03 Last Admin: 01/29/24 18:06 Dose: Not Given Documented By: SRL Hydralazine HCl (Hydralazine Hcl 20 Mg/Ml Vial) 10 mg IV NOW STA Stop: 01/29/24 18:06 Last Admin: 01/29/24 18:06 Dose: 10 mg Documented By: SRL Hydralazine HCl (Hydralazine Hcl 20 Mg/Ml Vial) 10 mg IV NOW STA Stop: 01/29/24 18:10 Last Admin: 01/29/24 18:10 Dose: 10 mg Documented By: SRL Tenecteplase 17 mg/ Syringe 3.4 mls @ 40.8 mls/min IV NOW ONE; Protocol Stop: 01/29/24 18:15 Last Admin: 01/29/24 18:29 Dose: 40.8 mls/min Documented By: KENDRICK Co-signed By: TOÑITO Ioversol (Optiray 320 125ml) 119 ml IV ONCE ONE Stop: 01/29/24 17:27 Last Admin: 01/29/24 17:27 Dose: 119 ml Documented By: IRENE Labetalol HCl (Labetalol Hcl Iv 5 Mg/Ml 20ml) Confirm Administered Dose 5 mg IV .STK-MED ONE Stop: 01/29/24 17:34 Last Admin: 01/29/24 17:50 Dose: Not Given Documented By: KENDRICK Labetalol HCl (Labetalol Hcl Iv 5 Mg/Ml 20ml) 10 mg IV NOW STA Stop: 01/29/24 17:40 Last Admin: 01/29/24 17:49 Dose: 10 mg Documented By: KENDRICK Labetalol HCl (Labetalol Hcl Iv 5 Mg/Ml 20ml) 10 mg IV NOW STA Stop: 01/29/24 18:10 Last Admin: 01/29/24 18:10 Dose: 10 mg Documented By: KENDRICK Labetalol HCl (Labetalol Hcl Iv 5 Mg/Ml 20ml) 10 mg IV NOW STA Stop: 01/29/24 18:17 Last Admin: 01/29/24 18:29 Dose: 10 mg Documented By: KENDRICK Levetiracetam (Levetiracetam 500 Mg/5 Ml Vial) 1,000 mg IV NOW STA Stop: 01/29/24 18:34 Last Admin: 01/29/24 19:11 Dose: 1,000 mg Documented By: DANIELA Miscellaneous (Stat Iv/Im) 1 each N/A NOW STA Stop: 01/29/24 18:05 Last Admin: 01/29/24 19:17 Dose: Not Given Documented By: MARTIN Miscellaneous (Stat Iv Infusion Titration Per Protocol) 1 each N/A NOW STA Stop: 01/29/24 18:17 Last Admin: 01/29/24 18:32 Dose: 1 each Documented By: KENDRICK Sodium Chloride (Sodium Chloride 0.9% 10ml Flush) 20 ml IV NOW STA Stop: 01/29/24 18:05 Last Admin: 01/29/24 18:32 Dose: 20 ml Documented By: KENDRICK Coding Level of Care Code 30063 IN/OBS CONSULT LVL 3,45M Diagnoses Stroke-like symptoms R29.90 Hypertensive emergency I16.1
--- NOTE | 2024-01-29 21:47 | Magnetic Resonance Report ---
Exam(s): MRI HEAD Without Contrast EXAM: MR Head Without Intravenous Contrast CLINICAL HISTORY: Reason for exam: Post TNKase. TECHNIQUE: Magnetic resonance images of the head/brain without intravenous contrast in multiple planes. COMPARISON: Head CT 01/29/2024 FINDINGS: Brain: No restricted diffusion. No intracranial hemorrhage. 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 Mild periventricular and subcortical T2/flair hyperintensities as can be seen in the setting of chronic microvascular ischemic changes. Ventricles: Unremarkable. No ventriculomegaly. Bones/joints: Unremarkable. No acute fracture. Sinuses: Unremarkable as visualized. No acute sinusitis. Mastoid air cells: Unremarkable as visualized. No mastoid effusion. Orbits: Unremarkable as visualized. IMPRESSION: No acute findings in the head/brain. Electronically signed by: Guillaume Kruse MD 01/29/24 21:46 PM
[2024-01-29] MEDS: ICU Protocol for HYPERglycemia SCH (23:32)
[2024-01-30 04:55] LABS: Eosinophils # (auto) 0.23 K/uL (0.00-0.50); Eosinophils % (auto) 2.3 %; Hematocrit (blood only) 39.6 % (42.0-52.0); Hemoglobin 13.5 g/dl (14.0-18.0); Immature Granulocytes # (auto) 0.03 K/uL (0.01-0.20); Immature Granulocytes % (auto) 0.3 %; Lymphocytes # (auto) 2.46 K/uL (1.20-3.40); Lymphocytes % (auto) 24.4 %; Mean Corpuscular Hemoglobin 29.5 pg (25.0-34.0); Mean Corpuscular Hgb Conc 34.1 g/dL (32.0-36.0); Mean Corpuscular Volume 86.5 fL (80.0-100.0); Monocytes # (auto) 0.75 K/uL (0.11-0.59); Monocytes % (auto) 7.4 %; Neutrophils # (auto) 6.52 K/uL (1.40-6.50); Neutrophils % (auto) 64.6 %; Platelet Count 286 K/uL (130-400); RDW Coefficient of Variation 12.9 % (11.5-14.5); RDW Standard Deviation 40.8 fL (36.4-46.3); Red Blood Count 4.58 M/uL (4.70-6.10); White Blood Count 10.09 K/ul (4.8-10.8)
[2024-01-30 05:11] LABS: BUN Creatinine Ratio 15.7 (10-20); Calcium 9.2 mg/dl (8.6-10.3); Chol HDL Ratio 5.6 (0-5); Creatinine Clr Calc Pharmacy 92.1 ml/min; Potassium 3.6 mmol/L (3.5-5.1)
[2024-01-30 05:26] LABS: Thyroid Stimulating Hormone 1.129 uIu/ml (0.300-4.500)
--- NOTE | 2024-01-30 06:54 | Hospitalist Progress Note ---
Date of Service January 30, 2024 Assessment & Plan (1) Stroke-like symptoms: (2) Hypertensive emergency: Plan 48 years Male with no reported medial history presented with- left eye pain, right side weakness, right facial droop. S/P thrombolysis 1. Stroke symptoms, s/p thrombolytic administration, ?? possible seizure activity. DDX: Stroke vs. hypertensive emergency vs. post ictal/Niles's paralysis vs. Pontine Infarct - NIHSS 6 on presentation-- consulted Neurology from [place]--- TPA recommended--- TPA at 18:29 yesterday Investigation: - CT, CTA head and neck( 01/28) - negative for stenosis, aneurysm, or other vascular anomalies - ECHO with bubble : Pending - MRI : No Abnormality detected - Urine tox: Neg; Lyme: Neg - TSH: 1.1 - Lipid panel: Chol: 258, LDL: 192, HDL: 46 - Telemetry: NSR - ECG: NSR with LVH - Swallow screen: Pending - WBC: 10.09, Hb:13.5 gm%, Na/K: 140/3.6 - MRSA: Neg, Urine Cory: neg, Treponema: neg, Lyme: Neg CT Head ( 01/29) : 1. No acute intracranial hemorrhage or acute territorial infarct. 2. Ill-defined 2 cm hypodense focus in the left paramedian faisal suggestive of cytotoxic edema associated with an acute infarct. 2. Hypertensive emergency/urgency without underlying diagnosis of hypertension BP: 105-166/ 50-96 MAP: 69-102 in last 24 hour. Medicine: S/P Labetalol 10 mg 3 STAT doses, Hydralazine 10 mg 2 doses at ER, Not under maintenance Antihypertensive Plan: MAP 95-100 for cerebral perfusion Neurology input: appreciate rec 1. Stat CT scan of the head: No hemorrhage 2. If the CT scan is negative with persistent symptom: MRI may be indicated 3. Aspirin 81 mcg after 24 hours of TPA. 4. BP goal: MAP approximately 95-100 5. High-dose statin : Lipitor 40 mg Once daily started. LINES/IV ACCESS - PIVs DVT PROPHYLAXIS - SCDs, chemoprophylaxis contraindicated 24 hours post Thrombolytics DISPO: ICU 24 hours post thrombolytic administration follow neurological and hemodynamic monitoring. Admission and Anticipated Discharge Date Admission Date: January 29, 2024 Supervising Physician Co-Signing Physician Notes Attending Physician Supervision Note: I independently interviewed and examined the patient and verified the de león history and physical, reviewed labs and image studies and agree with findings and care plan noted above. Seen this am. Responsive. Answers with limited words. Speech slurred with sentences. Right arm weakness + Acute pontine stroke - s/p TNK. goal bp <180/105. Avoid lowering BP too much - add NSS since BP staying low. Echo pending. Start asa 81mgs. CT head at 1900. -high dose statin. -appreciate neuro recommendations. SCD Subjective Today morning, Mikal was lying on bed at restless and anxious state. He sounds dysarthric, seemingly worried about his status. He told me he was aware of his BP was high on 140s in past but does not remember when or if he was advised any medication. He expresses that he can't move his right hand, has problem in his mouth and is fine with his left hand.His left right leg also feels weaker than before. He mentions some headache and difficulty moving his head still. He says his left eye larose too. Review of Systems Review of Systems: As per HPI Physical Exam Physical Exam: Constitutional: Anxious appearing, No acute distress, Sounds Dysarthric, Oriented to TPP, Follows command HEENT: Atraumatic, Normocephalic, No conjunctival injection CVS: S1 S2 no murmur, Regular Rhythm, no LE edema Respiratory: BL equal air entry with NVBS. No rhonchi, wheezes, or crackles. No increased work of breathing GI: Soft, Nondistended, Nontender, Normal Bowel sounds + MSK: No gross deformities noted Skin: Warm, Dry, No rashes Neuro: Alert, Oriented to TPP, Muscle power in right upper limb decreased 3/5, left Upper limb power normal, Right lower limb 4/5, Left LL Normal BL UL and LL senses intact and equal as per patient. Psych: Mood and Affect congruent, Cooperative on exam Results & Data Results & Data Vital Signs (Past 12 Hours) Vital Signs Temp Pulse Pulse Resp BP BP BP 01/30/24 06:32 61 14 113/75 01/30/24 05:32 37 C 64 18 131/63 01/30/24 04:32 37 C 63 15 112/68 01/30/24 03:32 63 15 118/64 01/30/24 02:32 60 16 105/51 L 01/30/24 02:02 36.9 C 68 15 115/67 01/30/24 01:32 36.8 C 63 16 114/61 01/30/24 01:02 66 18 125/63 01/30/24 00:32 78 18 117/62 01/30/24 00:02 68 16 116/55 L 01/29/24 23:32 36.8 C 72 16 136/68 01/29/24 23:10 71 01/29/24 23:02 37.3 C 75 19 133/57 L 01/29/24 22:32 36.8 C 73 16 115/50 L 01/29/24 22:02 36.7 C 87 17 122/78 01/29/24 21:32 37 C 83 18 166/89 H 01/29/24 21:02 85 18 162/93 H 01/29/24 20:33 80 01/29/24 20:32 36.6 C 83 20 167/96 H 01/29/24 20:30 01/29/24 20:20 80 19 122/69 01/29/24 19:45 87 18 110/64 01/29/24 19:30 89 24 130/68 01/29/24 19:15 85 20 128/82 01/29/24 19:00 86 128/82 01/29/24 19:00 88 19 124/82 Pulse Ox O2 Del Method 01/30/24 06:32 97 Room Air 01/30/24 05:32 98 Room Air 01/30/24 04:32 97 Room Air 01/30/24 03:32 98 Room Air 01/30/24 02:32 97 Room Air 01/30/24 02:02 100 Room Air 01/30/24 01:32 97 Room Air 01/30/24 01:02 98 Room Air 01/30/24 00:32 97 Room Air 01/30/24 00:02 97 Room Air 01/29/24 23:32 96 Room Air 01/29/24 23:10 01/29/24 23:02 96 Room Air 01/29/24 22:32 98 Room Air 01/29/24 22:02 98 Room Air 01/29/24 21:32 98 Room Air 01/29/24 21:02 99 Room Air 01/29/24 20:33 01/29/24 20:32 98 Room Air 01/29/24 20:30 Room Air 01/29/24 20:20 96 Room Air 01/29/24 19:45 96 Room Air 01/29/24 19:30 96 Room Air 01/29/24 19:15 97 Room Air 01/29/24 19:00 01/29/24 19:00 97 Room Air Resident Activity Tracking Resident Involvement: Resident Care Provided Care Provided: Adult Hospital Medicine
[2024-01-30 07:09] LABS: Estimated Average Glucose 111 mg/dl; Hemoglobin A1C 5.5 % (4.5-5.6)
[2024-01-30] MEDS: niCARdipine 25 MG in SODIUM CHLORIDE 0.9% 240 ML IV SCH (08:16)
--- NOTE | 2024-01-30 08:47 | Critical Care Progress Note ---
Date of Service January 30, 2024 Assessment & Plan (1) Stroke-like symptoms: (2) Hypertensive emergency: Plan Reason Critically Ill: 48 YOM with no reported medial history presented with- left eye pain, right side weakness, right facial droop- was deemed Thrombolytic candidate- 1829. To ICU for continued neurological evaluations and hemodynamic monitoring post thrombolytic administration. Neuro - Stroke symptoms, s/p thromoblytic administration, possible seizure activ ity: Resolved -MRI results reviewed -Awaiting neurology consultation, doubtful this represents CVA, atypical migraine versus seizures are in the differential. Cardiac - Hypertensive emergency/urgency without underlying diagnosis of hypertension -Blood pressures have been by enlarge part within normal limits. No indication to start chronic antihypertensives from critical care standpoint Respiratory - No acute needs GI - No acute needs RENAL/LYTES - No acute needs - No acute needs ENDO - NO acute needs - ICU hyperglycemic protocol HEME - No acute needs ID - NO concern for infective etiology at this time LINES/IV ACCESS - PIV Continue use of these lines DVT PROPHYLAXIS - SCDs, chemoprophylaxis contraindicated 24 hours post Thrombolytics DISPO: Awaiting repeat CT, will be able to downgrade out of ICU at 1830 per protocol. Critical care will sign off Admission and Anticipated Discharge Date Admission Date: January 29, 2024 Subjective Patient sleeping in the room. Arouses without difficulty. Reports that he feels back to baseline. No headache, no shortness of breath. Does not take medications on a regular basis. Was administered TNKase at 1830. Physical Exam Physical Exam: General: Alert. nontoxic. Skin: Warm, dry, Head: Atraumatic Ears, nose, mouth and throat: airway patent Cardiovascular: Normal peripheral perfusion Respiratory: no respiratory distress Gastrointestinal: Non distended Musculoskeletal: No deformity Results & Data Results & Data Vital Signs (Past 12 Hours) Vital Signs Temp Pulse Pulse Resp BP Pulse Ox O2 Del Method 01/30/24 06:32 61 14 113/75 97 Room Air 01/30/24 05:32 37 C 64 18 131/63 98 Room Air 01/30/24 04:32 37 C 63 15 112/68 97 Room Air 01/30/24 03:32 63 15 118/64 98 Room Air 01/30/24 02:32 60 16 105/51 L 97 Room Air 01/30/24 02:02 36.9 C 68 15 115/67 100 Room Air 01/30/24 01:32 36.8 C 63 16 114/61 97 Room Air 01/30/24 01:02 66 18 125/63 98 Room Air 01/30/24 00:32 78 18 117/62 97 Room Air 01/30/24 00:02 68 16 116/55 L 97 Room Air 01/29/24 23:32 36.8 C 72 16 136/68 96 Room Air 01/29/24 23:10 71 01/29/24 23:02 37.3 C 75 19 133/57 L 96 Room Air 01/29/24 22:32 36.8 C 73 16 115/50 L 98 Room Air 01/29/24 22:02 36.7 C 87 17 122/78 98 Room Air 01/29/24 21:32 37 C 83 18 166/89 H 98 Room Air 01/29/24 21:02 85 18 162/93 H 99 Room Air Critical Care Results & Data Vital Signs (Past 12 Hours) Vital Signs Temp Pulse Pulse Resp BP Pulse Ox O2 Del Method 01/30/24 06:32 61 14 113/75 97 Room Air 01/30/24 05:32 37 C 64 18 131/63 98 Room Air 01/30/24 04:32 37 C 63 15 112/68 97 Room Air 01/30/24 03:32 63 15 118/64 98 Room Air 01/30/24 02:32 60 16 105/51 L 97 Room Air 01/30/24 02:02 36.9 C 68 15 115/67 100 Room Air 01/30/24 01:32 36.8 C 63 16 114/61 97 Room Air 01/30/24 01:02 66 18 125/63 98 Room Air 01/30/24 00:32 78 18 117/62 97 Room Air 01/30/24 00:02 68 16 116/55 L 97 Room Air 01/29/24 23:32 36.8 C 72 16 136/68 96 Room Air 01/29/24 23:10 71 01/29/24 23:02 37.3 C 75 19 133/57 L 96 Room Air 01/29/24 22:32 36.8 C 73 16 115/50 L 98 Room Air 01/29/24 22:02 36.7 C 87 17 122/78 98 Room Air 01/29/24 21:32 37 C 83 18 166/89 H 98 Room Air 01/29/24 21:02 85 18 162/93 H 99 Room Air Lab & Micro Results (Past 24 Hours) RBC 4.58 M/uL (4.70-6.10) L 01/30/24 WBC 10.09 K/ul (4.8-10.8) 01/30/24 Hgb 13.5 g/dl (14.0-18.0) L 01/30/24 Hct 39.6 % (42.0-52.0) L 01/30/24 MCV 86.5 fL (80.0-100.0) 01/30/24 MCH 29.5 pg (25.0-34.0) 01/30/24 MCHC 34.1 g/dL (32.0-36.0) 01/30/24 RDW Standard Deviation 40.8 fL (36.4-46.3) 01/30/24 RDW Coefficient of Variation 12.9 % (11.5-14.5) 01/30/24 Plt Count 286 K/uL (130-400) 01/30/24 MPV 11.0 fL (9.4-12.4) 01/30/24 Neutrophils (%) (Auto) 64.6 % 01/30/24 Lymphocytes (%) (Auto) 24.4 % 01/30/24 Monocytes # (Auto) 0.75 K/uL (0.11-0.59) H 01/30/24 Eosinophils # (Auto) 0.23 K/uL (0.00-0.50) 01/30/24 Immature Granulocyte % (Auto) 0.3 % 01/30/24 Neutrophils # (Auto) 6.52 K/uL (1.40-6.50) H 01/30/24 Lymphocytes # (Auto) 2.46 K/uL (1.20-3.40) 01/30/24 Monocytes # (Auto) 0.75 K/uL (0.11-0.59) H 01/30/24 Eosinophils # (Auto) 0.23 K/uL (0.00-0.50) 01/30/24 Basophils # (Auto) 0.10 K/uL (0.00-0.20) 01/30/24 Immature Granulocyte # (Auto) 0.03 K/uL (0.01-0.20) 4 Na 140 mmol/L (136-145) 01/30/24 K 3.6 mmol/L (3.5-5.1) 01/30/24 Cl 108 mmol/L (98-107) H 01/30/24 CO2 24 mmol/L (21-32) 01/30/24 Anion Gap 8 (3-11) 01/30/24 BUN 13 mg/dl (6-23) 01/30/24 Creatinine 0.83 mg/dl (0.6-1.4) 01/30/24 BUN/Creatinine Ratio 15.7 (10-20) 01/30/24 Glu 98 mg/dl (70-99(Fasting)) 01/30/24 Ca 9.2 mg/dl (8.6-10.3) 01/30/24 Total Bilirubin 0.4 mg/dl (0.2-1.0) 01/29/24 AST 18 U/L (13-39) 01/29/24 ALT 15 U/L (7-52) 01/29/24 Alkaline Phosphatase 70 U/L (34-104) 01/29/24 TP 6.7 gm/dl (6.0-8.3) 01/29/24 Albumin 4.1 gm/dl (3.4-5.0) 01/29/24 Globulin 2.6 gm/dl (2.5-4.0) 01/29/24 Albumin/Globulin Ratio 1.6 (0.9-2) 01/29/24 Mg 1.8 mg/dl (1.7-2.4) 01/29/24 17:29 Calcium Level 9.2 mg/dl (8.6-10.3) 01/30/24 04:32 Prothromb Time International Ratio 1.0 (0.9-1.1) 01/29/24 17:2 9 Diagnostic Findings (Past 24 Hours) Head CT 01/29/24 17:[address] without contrast CT angiogram of the neck CT angiogram of the brain with contrast Provided History: Neuro deficit Comparison: None Technique: HEAD CT: Using multidetector thin collimation helical acquisition technique, axial, coronal and sagittal CT images from the skull base to the vertex were obtained without intravenous contrast. HEAD and NECK CTA: During rapid bolus intravenous injection of nonionic contrast material, axial images were obtained using thin collimation multidetector helical technique from the base of the neck through the Vertex of vertex of the head. This CT angiogram data was reconstructed at thin intervals with mild overlap. 3D reconstructions were obtained. The axial source images, multiplanar reformations, 3D reconstructions in both maximum intensity projection display and volume rendered models were reviewed. Dose reduction techniques were achieved by using automatic exposure control and/or adjustment of mA and/or kV according to patient size and/or use of iterative reconstruction technique. Findings: Head CT: There is no intracranial hemorrhage, mass effect, or midline shift. Ray/white matter differentiation in both cerebral hemispheres is preserved. Ventricles are proportionate to the cerebral sulci. Head CTA demonstrates no aneurysm or stenosis of the major intracranial arteries. Neck CTA demonstrates no stenosis of the major cervical arteries. The origins of the great vessels from the aortic arch are patent. The normal distal right internal carotid artery measures 5 mm. The normal distal left internal carotid artery measures 5 mm. No mass is noted within the visualized portions of the cervical soft tissues or lung apices. Impression: 1. Head CTA demonstrates no aneurysm or stenosis of the major intracranial arteries, 2. Neck CTA demonstrates no stenosis of the major cervical arteries. 3. No intracranial hemorrhage on the noncontrast head CT. The study was analyzed using artificial intelligence software for large vessel occlusion detection. Findings discussed with the emergency room physician at 5:45 PM, 01/29/[address] Gerardo Electronically signed by Napoleon Gerardo 01-29-2024 5:45 PM Head CTA 01/29/24 17:[address] without contrast CT angiogram of the neck CT angiogram of the brain with contrast Provided History: Neuro deficit Comparison: None Technique: HEAD CT: Using multidetector thin collimation helical acquisition technique, axial, coronal and sagittal CT images from the skull base to the vertex were obtained without intravenous contrast. HEAD and NECK CTA: During rapid bolus intravenous injection of nonionic contrast material, axial images were obtained using thin collimation multidetector helical technique from the base of the neck through the Vertex of vertex of the head. This CT angiogram data was reconstructed at thin intervals with mild overlap. 3D reconstructions were obtained. The axial source images, multiplanar reformations, 3D reconstructions in both maximum intensity projection display and volume rendered models were reviewed. Dose reduction techniques were achieved by using automatic exposure control and/or adjustment of mA and/or kV according to patient size and/or use of iterative reconstruction technique. Findings: Head CT: There is no intracranial hemorrhage, mass effect, or midline shift. Ray/white matter differentiation in both cerebral hemispheres is preserved. Ventricles are proportionate to the cerebral sulci. Head CTA demonstrates no aneurysm or stenosis of the major intracranial arteries. Neck CTA demonstrates no stenosis of the major cervical arteries. The origins of the great vessels from the aortic arch are patent. The normal distal right internal carotid artery measures 5 mm. The normal distal left internal carotid artery measures 5 mm. No mass is noted within the visualized portions of the cervical soft tissues or lung apices. Impression: 1. Head CTA demonstrates no aneurysm or stenosis of the major intracranial arteries, 2. Neck CTA demonstrates no stenosis of the major cervical arteries. 3. No intracranial hemorrhage on the noncontrast head CT. The study was analyzed using artificial intelligence software for large vessel occlusion detection. Findings discussed with the emergency room physician at 5:45 PM, 01/29/[address] Gerardo Electronically signed by Napoleon Gerardo 01-29-2024 5:45 PM Neck CTA 01/29/24 17:[address] without contrast CT angiogram of the neck CT angiogram of the brain with contrast Provided History: Neuro deficit Comparison: None Technique: HEAD CT: Using multidetector thin collimation helical acquisition technique, axial, coronal and sagittal CT images from the skull base to the vertex were obtained without intravenous contrast. HEAD and NECK CTA: During rapid bolus intravenous injection of nonionic contrast material, axial images were obtained using thin collimation multidetector helical technique from the base of the neck through the Vertex of vertex of the head. This CT angiogram data was reconstructed at thin intervals with mild overlap. 3D reconstructions were obtained. The axial source images, multiplanar reformations, 3D reconstructions in both maximum intensity projection display and volume rendered models were reviewed. Dose reduction techniques were achieved by using automatic exposure control and/or adjustment of mA and/or kV according to patient size and/or use of iterative reconstruction technique. Findings: Head CT: There is no intracranial hemorrhage, mass effect, or midline shift. Ray/white matter differentiation in both cerebral hemispheres is preserved. Ventricles are proportionate to the cerebral sulci. Head CTA demonstrates no aneurysm or stenosis of the major intracranial arteries. Neck CTA demonstrates no stenosis of the major cervical arteries. The origins of the great vessels from the aortic arch are patent. The normal distal right internal carotid artery measures 5 mm. The normal distal left internal carotid artery measures 5 mm. No mass is noted within the visualized portions of the cervical soft tissues or lung apices. Impression: 1. Head CTA demonstrates no aneurysm or stenosis of the major intracranial arteries, 2. Neck CTA demonstrates no stenosis of the major cervical arteries. 3. No intracranial hemorrhage on the noncontrast head CT. The study was analyzed using artificial intelligence software for large vessel occlusion detection. Findings discussed with the emergency room physician at 5:45 PM, 01/29/[address] Gerardo Electronically signed by Napoleon Gerardo 01-29-2024 5:45 PM Brain MRI 01/29/24 19:04 Exam(s): MRI HEAD Without Contrast EXAM: MR Head Without Intravenous Contrast CLINICAL HISTORY: Reason for exam: Post TNKase. TECHNIQUE: Magnetic resonance images of the head/brain without intravenous contrast in multiple planes. COMPARISON: Head CT 01/29/2024 FINDINGS: Brain: No restricted diffusion. No intracranial hemorrhage. 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 Mild periventricular and subcortical T2/flair hyperintensities as can be seen in the setting of chronic microvascular ischemic changes. Ventricles: Unremarkable. No ventriculomegaly. Bones/joints: Unremarkable. No acute fracture. Sinuses: Unremarkable as visualized. No acute sinusitis. Mastoid air cells: Unremarkable as visualized. No mastoid effusion. Orbits: Unremarkable as visualized. IMPRESSION: No acute findings in the head/brain. Electronically signed by: Guillaume Kruse MD 01/29/24 21:46 PM I & O Totals 24 Hours 01/29/24 01/30/24 01/31/24 06:59 06:59 06:59 Output Total 1300 / 1300 Balance -1300 / -1300 Cumulative 01/29/24 16:50 thru 01/30/24 06:00 Output Total 1300 Balance -1300 RT Ventilator Mngmt (Last Documented) Ventilator Ordered Settings Respiratory Rate 14 01/30/24 06:32 Ventilator - PT Measurements Respiratory Rate 14 Coding Level of Care Code 04620 CRITICAL CARE 1ST 30-74M Diagnoses Stroke-like symptoms R29.90 Hypertensive emergency I16.1
--- NOTE | 2024-01-30 09:54 | Neurology Consultation ---
Date of Consultation January 30, 2024 Assessment & Plan (1) Hypertensive emergency: (2) Stroke-like symptoms: (3) Chronic cerebral ischemia: Plan Patient has had less than 24 hours of fluctuating right-sided weakness including face arm and leg with dysesthesias on that side and dysarthria. There is no obvious visual deficits. Patient had a very high blood pressure which could create neurologic symptoms including confusion, weakness, numbness, and even seizures and seizure-like activity. MRI of the brain showed no acute stroke early last evening. Apparently he was doing well and now is worse again this morning with right hemiparesis and dysarthria. 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 Alternatively, hypertension could create fluctuating symptoms and, this morning, too low of a blood pressure could bring his symptoms out also. Patient has some chronic cerebral ischemia and an old left caudate lacunar suggesting that he has had hypertension for quite some time. He also has an elevated total cholesterol, but hemoglobin A1c is 5.5. He is a non-smoker Recommendations: 1. Stat CT scan of the head without contrast to rule out bleed 2. If the CT scan is negative then he persists in the symptoms despite an adequate blood pressure, I may repeat MRI of the brain. Small strokes, particularly brainstem strokes, can be missed when MRI is obtained less than 12 hours. 3. Patient will start 81 mg aspirin and get a repeat CT scan 24 hours after TNK (at 1900). 4. Avoid over control blood pressure and aim for a mean arterial pressure of approximately 95-100 5. This patient would be a high-dose statin candidate 6. I will follow and make additional recommendations pending his clinical course and the above test results 7. Patient will need a PCP Overall, I spent a total of 90 minutes with this case including review of records, review of MRI films, direct evaluation the patient at bedside, report generation, and discussion of the case with the patient and RN at bedside and Dr. Rollins including differential diagnosis and treatment options. History of Present Illness Reason for Consultation: Patient is a 48-year-old, who i was asked to see at the request of , for neurologic consultation regarding possible stroke Requesting Physician: Dr Patel Attending Physician: Yesenia Rollins MD History of Present Illness This patient has a limited Syriac capacity so a mold shop supervisor was used also with the course of the history and physical. This patient tells me that he has had no history of medical or surgical problems and was on no medications prior to admission. He has no history of seizures or convulsions in the past, significant head trauma or meningitis/encephalitis. Apparently, he had symptoms that started around 1 in the afternoon on January 28. This consisted of some itchiness around the left eye and some dizziness. He also noted that his right hand and arm was weak. His leg was somewhat weak and he had some numbness in his face arm and leg on the right. His speech was slurred. His symptoms lasted about 15 minutes and then resolved. Throughout the afternoon his symptoms would wax and wane much as above. He arrived to the emergency room on January 28 at 03/26/2004, with a temperature of 36.6, pulse 71 and regular, respirate 20, blood pressure 214/120, and O2 saturation 96%. In the ER he was dysarthric and had weakness in the right leg and right arm. This fluctuated apparently. Telemetry neurology with [facility] resulted in getting TNKase after blood pressure was managed better. In addition the patient had some jerking movements of the right arm and leg noted and he was loaded with 1 g of levetiracetam IV. According to the patient he has had no jerking movements of his limbs since then. CT scan of the head was unremarkable. CT angiography of the head and neck were unremarkable with no vascular anomalies or stenoses. CBC, CHEM profile, urinalysis, TSH, and Lyme antibody titers were all normal. Alcohol level was 0. MRI of the brain was unremarkable for any acute lesions. There was an old left caudate lacunar and some scattered mild small vessel ischemic disease. This morning his blood pressure was 113/75 and then at the time we finished our history and physical exam blood pressure was 126/80. He feels that his speech is slurred and that he has a right arm greater than leg weakness. He does not have any lack of feeling on the right side and he has no vision problems. He does not have any pain in the spine or limbs but does have a headache which is bioccipital and bifrontal. It is accompanied by a little bit of dizziness. Allergies Allergy/AdvReac Type Severity Reaction Status Date / Time No Known Allergies Allergy Unverified 01/29/24 19:11 Home Medications Medication Instructions Recorded Confirmed Type No Known Home Medications 01/29/24 01/29/24 History Patient History Social History (Updated 01/30/24 @ 09:57 by Pierce Mendoza MD) Smoking Status: Never smoker Hx Alcohol Use: No Hx Substance Use: Yes Last Used Substance: Days (ago) Last Used Substance Other :: 01/19/2024 per patient Preferred Language: Divehi Communication Ability: Effective Communication Tools: Other Clinic Md Associate Required: Yes Beliefs That Will Affect Care: None Current Living Situation: Spouse current occupational status: unemployed 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 Safe at Home: Yes Assistive Devices: None Review of Systems Constitutional: no fever, no fatigue and no weakness Eyes: no diplopia, no eye pain and no worsening vision Ear, Nose, Mouth, Throat: no ear pain, no tinnitus, no hearing loss, no dizziness, no snoring, no hoarseness and no dysphagia Respiratory: no cough and no dyspnea Cardiovascular: no chest pain, no palpitations and no lightheadedness Gastrointestinal: no abdominal pain, no nausea and no vomiting Musculoskeletal: no back pain, no neck pain, no radicular pain, no joint pain and no myalgia Integumentary: no rash and no lesions Neurologic: + localized weakness, + headache(s) and + abnormal speech; no gait abnormality, no generalized weakness, no tingling, no numbness, no tremor(s), no abnormal movements, no confusion and no memory loss Psychiatric: no depression, no irritability, no anxiety, no difficulty concentrating, no confusion and no hallucinations Endocrine: no fatigue and no flushing Hematologic / Lymphatic: no easy bleeding and no easy bruising Allergy / Immunological: no urticaria and no problem reported Exam (Neuro) Physical Exam: The patient is right-handed. The patient is awake, alert, and attentive. Speech is dysarthric but I have no evidence of aphasia either in Syriac or Divehi. He follows commands well. Mentation and thought processes seem intact, with full orientation and normal fund of knowledge. Mood and affect are normal and appropriate. Appearance and grooming are normal. Short and long-term memory are reasonable to conversation. The discs are difficult to visualize bilaterally. Pupils are 3 mm bilaterally and reactive to light. Extraocular eye muscles are intact without nystagmus. Visual acuity and visual baumann seem normal grossly to confrontation. There are no deficits to sensation in the face in all 3 distributions of the fifth cranial nerve bilaterally. Corneal reflexes are positive bilaterally. Patient has mild weakness at the corner of the mouth on the right. Hearing seems intact grossly to voice and finger rub bilaterally. Palate moves well without asymmetry. There is normal sternocleidomastoid and trapezius strength bilaterally. Tongue is midline with good strength bilaterally. Neck has a full range of motion without discomfort. There are no cervical bruits bilaterally. There are no cranial or ocular bruits. Heart is without murmur. There is a regular rhythm and rate. Cervical, thoracic, and lumbar spine are nontender to palpation. Gait is not tested and stance sitting up in bed is difficult. With outstretched left arm there is no drift. There are no resting, postural, or action tremors. There is no ataxia with finger to nose testing in the left arm. There is good facility in the left hand. There is drift and weakness in the right upper extremity and clumsiness in the right hand. Although the patient has some rocking in "fidgety" movements of his left leg there are no abnormal involuntary movements, myoclonic jerks or ballistic movements noted. Motor strength is 5/5 diffusely in the left upper extremity including deltoids, biceps, triceps, brachioradialis, wrist flexors and extensors, sales consultant residential manager, and intrinsic hand muscles. Motor strength is 4 -/5 proximally in the right upper extremity and 3/5 distal right upper extremity. Motor strength is 5/5 diffusely in the left lower extremity including hip flexors, quadriceps, hamstrings, gastrocnemius, tibialis anterior, tibialis post erior, and Peroneii muscles bilaterally. Motor strength is 4/5 diffusely in the right lower extremity both proximally and distally. Toe extensors are normal and there is good bulk in the extensor digitorum brevis muscles bilaterally. The right upper extremity has decreased tone. There is no atrophy noted in the muscles. Muscle bulk is normal, there is no tenderness to palpation, no myotonia to percussion, and no fasciculations seen. Sensory examination is intact to touch and pin throughout all 4 limbs diffusely. Reflexes are 2/4 in the biceps, triceps, brachioradialis, quadriceps, and A chilles tendons bilaterally. There were a few beats of clonus in the right ankle but not the left. Toes are downgoing with plantar stimulation on the left and equivocal on the right. Peripheral pulses are present and of normal quality distally in all 4 limbs. There is no peripheral edema noted in the limbs. Results & Data Vital Signs (Past 12 Hours) Vital Signs Temp Pulse Pulse Resp BP Pulse Ox O2 Del Method 01/30/24 06:32 61 14 113/75 97 Room Air 01/30/24 05:32 37 C 64 18 131/63 98 Room Air 01/30/24 04:32 37 C 63 15 112/68 97 Room Air 01/30/24 03:32 63 15 118/64 98 Room Air 01/30/24 02:32 60 16 105/51 L 97 Room Air 01/30/24 02:02 36.9 C 68 15 115/67 100 Room Air 01/30/24 01:32 36.8 C 63 16 114/61 97 Room Air 01/30/24 01:02 66 18 125/63 98 Room Air 01/30/24 00:32 78 18 117/62 97 Room Air 01/30/24 00:02 68 16 116/55 L 97 Room Air 01/29/24 23:32 36.8 C 72 16 136/68 96 Room Air 01/29/24 23:10 71 01/29/24 23:02 37.3 C 75 19 133/57 L 96 Room Air 01/29/24 22:32 36.8 C 73 16 115/50 L 98 Room Air 01/29/24 22:02 36.7 C 87 17 122/78 98 Room Air PG Care Time/CCT Total # of Minutes Spent Total Time Spent with Patient: Total time spent is greater than 50% in coordination of care (as documented) at patient's floor/unit and/or counseling patient: Coding Level of Care Code 78855 INT INP/OBS CARE 3/75MIN Diagnoses Hypertensive emergency I16.1 Stroke-like symptoms R29.90 Chronic cerebral ischemia I67.82 Time Spent (min) 90
--- NOTE | 2024-01-30 10:18 | CT Scan Report ---
CT head/brain wo con CLINICAL HISTORY: 48 years-old Male with Headache s/p TNK administration. Acute headache TECHNIQUE: Multiple axial CT images of the head were obtained without contrast. A dose lowering tech nique was utilized adhering to the principles of ALARA. CT DOSE: 625.8 mGy.cm COMPARISON: 01/29/[address] and brain MRI FINDINGS: No acute intracranial hemorrhage, midline shift, intracranial mass, hydrocephalus, acute territorial infarct or abnormal extra-axial collection. Mild white matter hypodensities are better seen on the co mparison MRI. Unchanged subcentimeter hypodense focus in the left caudate nuclear head. There is an i ll-defined 2 cm hypodense focus in the left paramedian faisal on image 11 series 2 which is more conspi cuous than the prior study. The calvarium is intact. Leftward bowing and spurring of the nasal septum. The paranasal sinuses, mas toid air cells, and middle ear cavities are clear. IMPRESSION: 1. No acute intracranial hemorrhage or acute territorial infarct. 2. Ill-defined 2 cm hypodense focus in the left paramedian faisal suggestive of cytotoxic edema associa sera with an acute infarct. ACT 112: Negative or not required by law. The above report was generated using voice recognition software. It may contain grammatical, syntax o r spelling errors. Electronically signed by: Franklyn Oleary M.D. 01/30/2024 10:16 AM
[2024-01-30] MEDS: levETIRAcetam 500 MG/5 ML VIAL IV SCH (10:23)
--- NOTE | 2024-01-30 11:30 | Pharmacy Report ---
- Date of Service January 30, 2024 - Pharmacy CVA/TIA Medication Review Medications to Prevent Stroke handout has been added to the patients discharge packet. Antiplatelet(s) * Aspirin 81 mg PO daily Cholesterol * High intensity statin: atorvastatin 80 mg daily DVT Prophylaxis * SCD knee Therapeutic Anticoagulation * No history of Afib/Aflutter noted Type 2 Diabetes * Patient does not have T2DM
[2024-01-30] MEDS: LACTATED RINGER'S 500 ML IV ONE (17:20)
[2024-01-30] MEDS: SODIUM CHLORIDE 0.9% 1,000 ML IV SCH (17:20)
--- NOTE | 2024-01-30 17:42 | Communication Note ---
Date of Service: January 30, 2024 48 YOM admitted for stroke like symptoms in setting of hypertension and received thrombolytics on 01/28/1829 S: Called by Nursing to report Patient with right arm flaccidity identified by RN- reports no other acute neurological changes at this time. 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 Sensation is intact. A/P - CT imaging reviewed from this morning is interpreted as- Left CHICHI hypodense suggestive of cytoxic edema associated with acute infarct - Vitas reviewed - BP 113-130 through the day and with waxing and waning of symptoms with headaches as well as right arm weakness - As this is acute worsening did discuss with Neurologist continuous improvement manager Dr. Mendoza- MRI now, and Ok with permissive HTN to target a MAP of 90-105 - will start with IVF bolus at this time as he is currently with MAP of 90 and if needed will add support with PATRICIA or LEVO overnight to eval if this helps his neurological status. - Discussed case as well with primary hospitalist team, and will keep patient on ICU status overnight for the above treatment plans and continued monitoring - If no hemorrhage seen will add on ASA 81mg as well, statin has already been added. Juliocesar COLLAZO (ACNP_BC)
--- NOTE | 2024-01-30 18:23 | Magnetic Resonance Report ---
Clinical History: Brainstem stroke Technique: Multiple T1 and T2-weighted magnetic resonance images were obtained of the brain without gadolinium contrast Findings: There is a 1.8 x 1.5 cm area of restricted diffusion and increased T2 signal intensity in the left upper aspect of the faisal. There is cerebral atrophy, within expected limits for the patient's age. There are small areas of increased T2 signal intensity within the periventricular white matter, most likely due to chronic small vessel ischemic disease. There is a small old infarct of the left caudate nucleus. There is a small old infarct of the left centrum semiovale. No definite mass lesion is seen on this noncontrast study. There is no intracranial hemorrhage or other fluid collection. No midline shift or other form of herniation is seen. There is no hydrocephalus. Normal flow-voids are seen within the arteries of the [id number]. The orbits and paranasal sinuses appear normal. The mastoid air cells appear clear. Impression: 1. Acute/subacute infarct of the faisal 2. Cerebral atrophy, chronic small vessel ischemic disease, and old infarcts Electronically signed by Cy Choi 01-30-2024 6:23 PM
[2024-01-30] MEDS: ASPIRIN 81 MG ECTAB PO SCH (20:57)
[2024-01-30] MEDS: ATORVASTATIN 40 MG TAB PO SCH (20:58)
[2024-01-31 04:40] LABS: Basophils # (auto) 0.08 K/uL (0.00-0.20); Eosinophils # (auto) 0.25 K/uL (0.00-0.50); Eosinophils % (auto) 3.1 %; Hemoglobin 12.8 g/dl (14.0-18.0); Immature Granulocytes # (auto) 0.01 K/uL (0.01-0.20); Immature Granulocytes % (auto) 0.1 %; Lymphocytes # (auto) 2.53 K/uL (1.20-3.40); Lymphocytes % (auto) 31.2 %; Mean Corpuscular Hgb Conc 32.8 g/dL (32.0-36.0); Mean Corpuscular Volume 88.2 fL (80.0-100.0); Mean Platelet Volume 11.3 fL (9.4-12.4); Monocytes # (auto) 0.59 K/uL (0.11-0.59); Monocytes % (auto) 7.3 %; Neutrophils # (auto) 4.64 K/uL (1.40-6.50); Neutrophils % (auto) 57.3 %; Platelet Count 259 K/uL (130-400); RDW Coefficient of Variation 13.2 % (11.5-14.5); RDW Standard Deviation 42.9 fL (36.4-46.3); Red Blood Count 4.42 M/uL (4.70-6.10)
[2024-01-31 04:57] LABS: Calcium 8.8 mg/dl (8.6-10.3); Creatinine Clr Calc Pharmacy 96.8 ml/min; Potassium 3.7 mmol/L (3.5-5.1)
--- NOTE | 2024-01-31 09:32 | Neurology Progress Note ---
Date of Service January 31, 2024 Assessment & Plan (1) Left pontine CVA: (2) Hypertensive emergency: (3) Chronic cerebral ischemia: Plan Patient has had less than 24 hours of fluctuating right-sided weakness including face arm and leg with dysesthesias on that side and dysarthria. There is no obvious visual deficits. On January 29, it was clear that his right sided weakness was more permanent. Repeat CT scan of the head showed no hemorrhage but did show hypodensity in the left faisal. MRI of the brain showed an acute left pontine stroke Currently on examination he has moderate right arm and leg paresis and some facial droop on the left. He has mild dysarthria. There are no ocular findings or other abnormalities. Patient presented on January 28 with a very high blood pressure which could create neurologic symptoms including confusion, weakness, numbness, and even seizures and seizure-like activity. On the morning of January 29, his blood pressure was relatively low. Today his blood pressure is quite good with a mean arterial pressure of 100. I reviewed the MRIs of January 28 (with Dr. You) and there was no evidence for a pontine stroke at that time. 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 He also has an elevated total cholesterol, but hemoglobin A1c is normal at 5.5. He is a non-smoker. Recommendations: 1. Consider dual antiplatelet therapy with 81 mg aspirin and 75 mg clopidogrel for 3-weeks and then discontinue aspirin and remain on clopidogrel alone 2. Physical, occupational, and speech therapy consults. This patient should make an excellent rehabilitation hospital candidate. 3. Continue blood pressure control (mean arterial pressure of approximately 95- 100) 4. Continue atorvastatin 40 mg daily 5. This patient would benefit from having a PCP. Overall, I spent a total of 50 minutes with this case including review of records, review of MRI films, direct evaluation the patient at bedside, report generation, and discussion of the case with the patient and RN at bedside, Dr. Pepe, and Dr. Rollins including differential diagnosis and treatment options. Admission and Anticipated Discharge Date Admission Date: January 29, 2024 Subjective Patient feels that his speech is better. He still believes that his arm and leg on the right are weak as they were yesterday. He has a upper occipital headache of a nonspecific nature. Blood pressure this morning is 136/94. Nursing reports no new issues or seizures. MRI of the brain showed a left pontine acute stroke. I reviewed these films. He has not mild anemia on CBC and CHEM profile was largely unremarkable. Results & Data Vital Signs (Past 12 Hours) Vital Signs Pulse Resp BP Pulse Ox 01/31/24 05:12 53 L 14 136/84 01/31/24 04:24 59 L 14 147/98 H 01/31/24 03:11 59 L 13 01/31/24 02:05 57 L 13 142/90 H 01/31/24 01:02 58 L 14 147/98 H 96 01/31/24 00:05 66 25 H 01/30/24 23:08 58 L 18 01/30/24 22:03 76 20 171/104 H 88 L Exam (Neuro) Physical Exam: He is awake and alert. He has some mild dysarthria but is clearer to understand today compared to yesterday. He follows one-step commands well and is pleasant and cooperative. Extraocular eye muscles are intact without nystagmus. Pupils are 4 mm bilaterally reactive to light. There is a slight droop at the corner of mouth on the left and it does not move quite as well with voluntary smile compared to the right. Tongue is midline. Coordination is normal in the left upper extremity without tremor or ataxia. Motor strength is 5/5 diffusely in the left arm and left leg both proximally and distally. The right upper extremity has 34 -/5 strength proximally and 0/5 distally in the hand. Right lower extremity has 4/5 strength proximally and 4/5 in the gastrocnemius. Tibialis anterior is 3/5 but toes are 1/5 Reflexes are 2/4 throughout. Toes are downgoing to plantar stimulation on the left and equivocal to upgoing on the right. PG Care Time/CCT Total # of Minutes Spent Total Time Spent with Patient: Total time spent is greater than 50% in coordination of care (as documented) at patient's floor/unit and/or counseling patient: Coding Level of Care Code 65719 SUB INP/OBS CARE 3/50MIN Diagnoses Left pontine CVA I63.9 Hypertensive emergency I16.1 Chronic cerebral ischemia I67.82 Time Spent (min) 50
--- NOTE | 2024-01-31 09:34 | Hospitalist Progress Note ---
Date of Service January 31, 2024 Assessment & Plan (1) Stroke-like symptoms: (2) Hypertensive emergency: Plan 48 years Male with no reported medial history presented with- left eye pain, right side weakness, right facial droop. S/P thrombolysis #Stroke symptoms, s/p thrombolytic administration DDX: Hypertensive emergency vs Pontine Infarct - S/P TPA: 48 hour this 6:29 PM - Repeat MRI/CT after TPA: Acute Pontine infarct, Cerebral atrophy, chronic small vessel ischemic disease and old infarct - Post Stroke care ongoing OT/PT on board: Suggest Skilled PT F/B Rehab placement Swallow eval completed: Tolerating regular Diet. - Counselled patient that it will take sometime and more effort for gaining back his power; he seems less anxious #Hypertensive emergency/urgency without underlying diagnosis of hypertension - HTN under goal now. - No medicine; permissive HTN with goal of MAP 95-100 #Neurology input: appreciate rec -Dual AP therapy Aspirin 81 mcg and Clopidogrel 75 mg Once daily for 3 weeks -BP goal: MAP approximately 95-100 -High-dose statin : Lipitor 40 mg Once daily started. -Physical, occupational, and speech therapy consults. DVT PROPHYLAXIS - SCDs DISPO: Can be downgraded from ICU Admission and Anticipated Discharge Date Admission Date: January 29, 2024 Supervising Physician Co-Signing Physician Notes Attending Physician Supervision Note: I independently interviewed and examined the patient and verified the de león history and physical, reviewed labs and image studies and agree with findings and care plan noted above. No change since last evening. Persistent right arm and leg weakness. Able to sit himself up in the bed. Able to converse in short sentences. Acute pontine stroke - s/p TNK. Echo pending. continue asa 81mgs. DAPT for 3- weeks and then discontinue aspirin and remain on clopidogrel alone -maintain high dose statin. -PT/OT/ST -Blood pressure control (MAP 95-100) - added losartan and amlodipine. -appreciate neuro recommendations. SCD Subjective Patient feels that his speech is better. He still believes that his arm and leg on the right are weak as they were yesterday. He has a upper occipital headache of a nonspecific nature. No nausea, vomiting, blurring of vision. 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 His friend drives him back and forth to work. He mentions he will be here to visit him soon. He has no family members nearby, some of them are in [place], [place]. Review of Systems Review of Systems: As per HPI Physical Exam Physical Exam: Constitutional: Anxious appearing, No acute distress, Sounds Dysarthric, Oriented to TPP, Follows command HEENT: Atraumatic, Normocephalic, No conjunctival injection CVS: S1 S2 no murmur, Regular Rhythm, no LE edema Respiratory: BL equal air entry with NVBS. No rhonchi, wheezes, or crackles. No increased work of breathing GI: Soft, Nondistended, Nontender, Normal Bowel sounds + MSK: No gross deformities noted Skin: Warm, Dry, No rashes Neuro: Alert, Oriented to TPP, Muscle power in right upper limb decreased 3/5, left Upper limb power normal, Right lower limb 4/5, Left LL Normal power BL UL and LL senses intact and equal as per patient. Can blow cheeks, shrug shoulders, EOM intact. Face looks symmetrical. Psych: Mood and Affect congruent, Cooperative on exam Results & Data Results & Data Vital Signs (Past 12 Hours) Vital Signs Pulse Resp BP Pulse Ox 01/31/24 05:12 53 L 14 136/84 01/31/24 04:24 59 L 14 147/98 H 01/31/24 03:11 59 L 13 01/31/24 02:05 57 L 13 142/90 H 01/31/24 01:02 58 L 14 147/98 H 96 01/31/24 00:05 66 25 H 01/30/24 23:08 58 L 18 01/30/24 22:03 76 20 171/104 H 88 L Resident Activity Tracking Resident Involvement: Resident Care Provided Care Provided: Adult Hospital Medicine
--- NOTE | 2024-01-31 12:48 | Communication Note ---
Date of Service: January 31, 2024 Discussed with neurology. Patient had increasing symptoms yesterday after my evaluation, additional CT scan and MRI were obtained demonstrating definitive CVA. Blood pressure improved after mild volume expansion. Critical care needs have remained resolved stable for downgrade out of ICU. Coding Level of Care Code None
[2024-01-31] MEDS: ACETAMINOPHEN 1,000 MG/100 ML VIAL IV PRN (13:00)
[2024-01-31] MEDS ORDERED: LABETALOL HCL IV 5 MG/ML 20ML IV PRN (16:53)
--- NOTE | 2024-01-31 17:52 | XCELERA ---
[id number]
[2024-01-31] MEDS: amLODIPine BESYLATE 5 MG TAB PO SCH (19:29)
[2024-01-31] MEDS: LOSARTAN POTASSIUM 50 MG TAB PO SCH (19:29)
[2024-02-01 04:27] LABS: Basophils # (auto) 0.08 K/uL (0.00-0.20); Eosinophils # (auto) 0.33 K/uL (0.00-0.50); Hemoglobin 13.1 g/dl (14.0-18.0); Immature Granulocytes # (auto) 0.01 K/uL (0.01-0.20); Immature Granulocytes % (auto) 0.1 %; Lymphocytes # (auto) 2.77 K/uL (1.20-3.40); Lymphocytes % (auto) 33.8 %; Mean Corpuscular Hemoglobin 29.4 pg (25.0-34.0); Mean Corpuscular Hgb Conc 33.6 g/dL (32.0-36.0); Mean Corpuscular Volume 87.6 fL (80.0-100.0); Monocytes # (auto) 0.57 K/uL (0.11-0.59); Neutrophils # (auto) 4.44 K/uL (1.40-6.50); Neutrophils % (auto) 54.1 %; Platelet Count 263 K/uL (130-400); RDW Coefficient of Variation 12.9 % (11.5-14.5); RDW Standard Deviation 41.2 fL (36.4-46.3); Red Blood Count 4.45 M/uL (4.70-6.10)
[2024-02-01 04:45] LABS: BUN Creatinine Ratio 13.3 (10-20); Calcium 8.9 mg/dl (8.6-10.3); Creatinine Clr Calc Pharmacy 92.1 ml/min; Potassium 3.6 mmol/L (3.5-5.1)
[2024-02-01] MEDS: CLOPIDOGREL BISULFATE 75 MG TAB PO SCH (07:46)
--- NOTE | 2024-02-01 09:35 | Neurology Progress Note ---
Date of Service February 01, 2024 Assessment & Plan (1) Left pontine CVA: (2) Hypertensive emergency: (3) Chronic cerebral ischemia: Plan Patient has had less than 24 hours of fluctuating right-sided weakness including face arm and leg with dysesthesias on that side and dysarthria. There is no obvious visual deficits. On January 29, it was clear that his right sided weakness was more permanent. Repeat CT scan of the head showed no hemorrhage but did show hypodensity in the left faisal. MRI of the brain showed an acute left pontine stroke Currently on examination he has moderate right arm and leg paresis which is about the same today as yesterday. The facial droop is somewhat improved. He has mild dysarthria, but this is improving. There are no ocular findings or other abnormalities. Patient presented on January 28 with a very high blood pressure which could create neurologic symptoms including confusion, weakness, numbness, and even seizures and seizure-like activity. On the morning of January 29, his blood pressure was relatively low. His blood pressure has been quite good over the last 24 to 48 hours with mean arterial pressures between 101-105. I reviewed the MRIs of January 28 (with Dr. You) and there was no evidence for a pontine stroke at that time. 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 He also has an elevated total cholesterol, but hemoglobin A1c is normal at 5.5. He is a non-smoker. 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 Recommendations: 1. Continue dual antiplatelet therapy with 81 mg aspirin and 75 mg clopidogrel for 3 weeks, and then discontinue aspirin and remain on clopidogrel alone 2. Continue physical, occupational, and speech therapy. This patient should make an excellent rehabilitation hospital candidate. 3. Continue blood pressure control (mean arterial pressure of approximately 100) as you are doing 4. Continue atorvastatin 40 mg daily 5. Consider initiation of fluoxetine 10 mg in the morning for 1 week then 20 mg in the morning if needed. 6. This patient would benefit from having a PCP. Overall, I spent a total of 35 minutes with this case including review of records, direct evaluation the patient at bedside, report generation, and discussion of the case with the patient and RN at bedside, and Dr. Rollins including differential diagnosis and treatment options. Admission and Anticipated Discharge Date Admission Date: January 29, 2024 Subjective Patient has no complaint of pain or headache. He feels that he is about the same with his weakness. The patient looks depressed to me. Nursing reports no new issues. Echocardiogram showed some mild LVH. Blood pressure today is quite good at 130/94 (mean arterial pressure 106). CBC and CHEM profile were unremarkable. He is afebrile. Results & Data Vital Signs (Past 12 Hours) Vital Signs Temp Pulse Pulse Resp BP BP Pulse Ox 02/01/24 08:02 61 02/01/24 07:27 36.7 C 54 L 20 130/94 96 02/01/24 04:12 54 L 15 96 02/01/24 04:00 129/78 02/01/24 03:36 36.9 C 02/01/24 02:00 110/84 02/01/24 02:00 110/84 02/01/24 01:42 52 L 16 02/01/24 01:33 53 L 7 L 02/01/24 01:18 53 L 11 L 02/01/24 01:00 53 L 12 02/01/24 00:45 53 L 15 02/01/24 00:42 54 L 13 02/01/24 00:21 36.9 C 02/01/24 00:09 58 L 13 94 02/01/24 00:00 56 L 02/01/24 00:00 141/101 H O2 Del Method 02/01/24 08:02 02/01/24 07:27 Room Air 02/01/24 04:12 02/01/24 04:00 02/01/24 03:36 02/01/24 02:00 02/01/24 02:00 02/01/24 01:42 02/01/24 01:33 02/01/24 01:18 02/01/24 01:00 02/01/24 00:45 02/01/24 00:42 02/01/24 00:21 02/01/24 00:09 02/01/24 00:00 02/01/24 00:00 Exam (Neuro) Physical Exam: He is awake and alert. Speech is without aphasia and he has less dysarthria. Mood is reasonable but I wonder if it is somewhat down. He is pleasant and follows one-step commands Extraocular muscles are intact without nystagmus. There is no obvious facial droop and his face moves better with smile, and that he did before. He has no abnormal involuntary movements. Proximal and distal strength of the left arm and leg is 5/5 diffusely. In the right upper extremity strength is 4 - /5 distally is 0/5. In the right lower extremity strength is 4/5 proximally and 4 -/5 distally. He is clumsy distally in the hand and foot on the right PG Care Time/CCT Total # of Minutes Spent Total Time Spent with Patient: Total time spent is greater than 50% in coordination of care (as documented) at patient's floor/unit and/or counseling patient: Coding Level of Care Code 33243 SUB INP/OBS CARE 2/35MIN Diagnoses Left pontine CVA I63.9 Hypertensive emergency I16.1 Chronic cerebral ischemia I67.82
[2024-02-01] MEDS ORDERED: FLUoxetine HCL 10 MG CAP PO SCH (10:30)
--- NOTE | 2024-02-01 13:26 | Hospitalist Progress Note ---
Date of Service February 01, 2024 Assessment & Plan (1) Stroke-like symptoms: (2) Hypertensive emergency: Plan 48 years Male with no reported medial history presented with- left eye pain, right side weakness, right facial droop. S/P thrombolysis #Stroke symptoms, s/p thrombolytic administration DDX: Hypertensive emergency vs Pontine Infarct - S/P TPA - Repeat MRI/CT after TPA: Acute Pontine infarct, Cerebral atrophy, chronic small vessel ischemic disease and old infarct - Post Stroke care ongoing OT/PT on board: Suggest Skilled PT F/B Rehab placement Swallow eval completed: Tolerating regular Diet. #Hypertensive emergency/urgency without underlying diagnosis of hypertension - Bp coming up little high: 147-184/ 87-118 - Amlodipine 5 mg Once daily , Losartan 50 mg QAM started #Neurology input: appreciate rec - Stable; continue prev recs. - Recommends SSRI DVT PROPHYLAXIS- SCDs DISPO: Downgraded from ICU OT/PT : Rec Rehab placement; Case Mgmt on board Admission and Anticipated Discharge Date Admission Date: January 29, 2024 Supervising Physician Co-Signing Physician Notes Attending Physician Supervision Note: I independently interviewed and examined the patient and verified the de león history and physical, reviewed labs and image studies and agree with findings and care plan noted above. Reported feeling sad and overwhelmed with stroke. Motivated to get better though. No change with exam findings Persistent right arm and leg weakness. Friend at bedside. Acute pontine stroke - s/p TNK. Echo - neg bubble study. continue asa 81mgs. DAPT for 3-weeks and then discontinue aspirin and remain on clopidogrel alone -maintain high dose statin. -PT/OT/ST -Blood pressure control (MAP 95-100) - BP elevated with addition of losartan and amlodipine. will add hctz at 12.5mgs -appreciate neuro recommendations. -add fluoxetine 10mgs and increase further. SCD. add heparin SQ Subjective Today morning, Mikal feels that he is about the same with his weakness. He sounds more frustrated and depressed to me. He is worried if he will be able to go back to work or not. He mentioned nobody cares about him, his and children live 5 hours away. They are not coming to see him. He talks to them via phone though. He shared he has one daughter and one son. Review of Systems Review of Systems: As per HPI Physical Exam Physical Exam: Constitutional: Anxious appearing, No acute distress, Sounds Dysarthric, Oriented to TPP, Follows command HEENT: Atraumatic, Normocephalic, No conjunctival injection CVS: S1 S2 no murmur, Regular Rhythm, no LE edema Respiratory: BL equal air entry with NVBS. No rhonchi, wheezes, or crackles. No increased work of breathing GI: Soft, Nondistended, Nontender, Normal Bowel sounds + MSK: No gross deformities noted Skin: Warm, Dry, No rashes Neuro: Alert, Oriented to TPP, Muscle power in right upper limb decreased 3/5, left Upper limb power normal, Right lower limb 4/5, Left LL Normal power BL UL and LL senses intact and equal as per patient. Can blow cheeks, shrug shoulders, EOM intact. Face looks symmetrical. Psych: Mood and Affect congruent, Cooperative on exam Results & Data Results & Data Vital Signs (Past 12 Hours) Vital Signs Temp Pulse Pulse Resp BP BP Pulse Ox 02/01/24 12:47 36.6 C 64 16 151/99 H 96 02/01/24 12:03 80 02/01/24 11:03 59 L 02/01/24 10:55 151/104 H 02/01/24 10:51 149/102 H 02/01/24 10:51 149/102 H 02/01/24 10:48 58 L 02/01/24 10:21 61 02/01/24 10:21 147/95 H 02/01/24 10:21 147/95 H 02/01/24 10:00 57 L 02/01/24 09:03 62 02/01/24 08:03 60 97 02/01/24 08:02 61 02/01/24 08:00 02/01/24 07:29 130/94 02/01/24 07:29 130/94 02/01/24 07:27 36.7 C 54 L 20 130/94 96 02/01/24 07:15 51 L 02/01/24 07:06 51 L 02/01/24 06:54 73 02/01/24 04:12 54 L 15 96 02/01/24 04:00 129/78 02/01/24 03:36 36.9 C 02/01/24 02:00 110/84 02/01/24 02:00 110/84 02/01/24 01:42 52 L 16 02/01/24 01:33 53 L 7 L O2 Del Method O2 Del Method 02/01/24 12:47 Room Air 02/01/24 12:03 02/01/24 11:03 02/01/24 10:55 02/01/24 10:51 02/01/24 10:51 02/01/24 10:48 02/01/24 10:21 02/01/24 10:21 02/01/24 10:21 02/01/24 10:00 02/01/24 09:03 02/01/24 08:03 02/01/24 08:02 02/01/24 08:00 Room Air 02/01/24 07:29 02/01/24 07:29 02/01/24 07:27 Room Air 02/01/24 07:15 02/01/24 07:06 02/01/24 06:54 02/01/24 04:12 02/01/24 04:00 02/01/24 03:36 02/01/24 02:00 02/01/24 02:00 02/01/24 01:42 02/01/24 01:33 Resident Activity Tracking Resident Involvement: Resident Care Provided Care Provided: Adult Hospital Medicine
--- NOTE | 2024-02-01 15:28 | Electrocardiogram Report ---
Test Reason : Blood Pressure : */* mmHG Vent. Rate : 66 BPM Atrial Rate : 66 BPM P-R Int : 182 ms QRS Dur : 106 ms QT Int : 396 ms P-R-T Axes : 48 53 -29 degrees QTcB Int : 415 ms Normal sinus rhythm Left ventricular hypertrophy with repolarization abnormality Abnormal ECG No previous ECGs available Confirmed by Wade Hernandez ([id number]) on 02/01/2024 3:27:47 PM Referred By: Confirmed By: Wade Hernandez
[2024-02-01] MEDS: hydroCHLOROthiazide 25 MG TAB PO SCH (17:27)
[2024-02-01] MEDS: HEPARIN SOD 5,000 UNIT/0.5 ML VIAL SQ SCH (21:11)
--- NOTE | 2024-02-02 08:53 | Neurology Progress Note ---
Date of Service February 02, 2024 Assessment & Plan (1) Left pontine CVA: (2) Hypertensive emergency: (3) Chronic cerebral ischemia: Plan Patient has had less than 24 hours of fluctuating right-sided weakness including face arm and leg with dysesthesias on that side and dysarthria. There is no obvious visual deficits. On January 29, it was clear that his right sided weakness was more permanent. Repeat CT scan of the head showed no hemorrhage but did show hypodensity in the left faisal. MRI of the brain showed an acute left pontine stroke Currently on examination he has moderate right arm and leg paresis which is about the same, although I feel the leg is making improvements more than the arm. The facial droop is improved. He has mild dysarthria, but this is improving. There are no ocular findings or other abnormalities. Patient presented on January 28 with a very high blood pressure which could create neurologic symptoms including confusion, weakness, numbness, and even seizures and seizure-like activity. On the morning of January 29, his blood pressure was relatively low. His blood pressure has been quite good over the last 24 to 48 hours with mean arterial pressures between 101-105. I reviewed the MRIs of January 28 (with Dr. You) and there was no evidence for a pontine stroke at that time. 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 He also has an elevated total cholesterol, but hemoglobin A1c is normal at 5.5. He is a non-smoker. 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 Recommendations: 1. Continue dual antiplatelet therapy with 81 mg aspirin and 75 mg clopidogrel for 3 weeks, and then discontinue aspirin and remain on clopidogrel alone 2. Continue physical, occupational, and speech therapy. This patient should make an excellent rehabilitation hospital candidate. 3. Continue blood pressure control (mean arterial pressure of approximately 100) as you are doing 4. Continue atorvastatin 40 mg daily 5. Hold on an antidepressant for now and will monitor his mood over time. 6. This patient would benefit from having a PCP. Overall, I spent a total of 35 minutes with this case including review of records, direct evaluation the patient at bedside, report generation, and discussion of the case with the patient and RN at bedside, and Dr. Rollins including differential diagnosis and treatment options. Admission and Anticipated Discharge Date Admission Date: January 29, 2024 Subjective Patient has no complaint of pain or headache. He feels about the same as yesterday. He is not dizzy. Blood pressure is 119/80 this morning and he is afebrile. CBC and CHEM profile were unremarkable. Fluoxetine was not given because there is a potential interaction with clopidogrel (fluoxetine can make clopidogrel not as effective in reducing strokes and heart attacks). The patient seemed to be in a better mood this morning anyway. Results & Data Vital Signs (Past 12 Hours) Vital Signs Temp Pulse Pulse Resp BP Pulse Ox Pulse Ox 02/02/24 08:27 02/02/24 08:00 97 02/02/24 07:56 36.5 C 60 16 119/80 97 02/02/24 07:12 76 02/02/24 04:40 36.7 C 86 20 117/79 92 02/02/24 00:33 37.0 C 78 20 134/85 95 02/01/24 21:53 72 O2 Del Method O2 Del Method 02/02/24 08:27 Room Air 02/02/24 08:00 Room Air 02/02/24 07:56 Room Air 02/02/24 07:12 02/02/24 04:40 Room Air 02/02/24 00:33 Room Air 02/01/24 21:53 Exam (Neuro) Physical Exam: Patient was asleep and easily aroused with voice. He was awake and alert, pleasant and cooperative, following commands well. His mood seemed reasonable. Extraocular muscles are intact without nystagmus. He has better facial movement bilaterally Tongue is midline. Motor strength is close to 5/5 proximally in the right leg and 4/5 distally. In the right upper extremity strength is 4 -/5 proximally and 01/5 distally. PG Care Time/CCT Total # of Minutes Spent Total Time Spent with Patient: Total time spent is greater than 50% in coordination of care (as documented) at patient's floor/unit and/or counseling patient: Coding Level of Care Code 86777 SUB INP/OBS CARE 2/35MIN Diagnoses Left pontine CVA I63.9 Hypertensive emergency I16.1 Chronic cerebral ischemia I67.82 Time Spent (min) 35
--- NOTE | 2024-02-02 13:26 | Hospitalist Progress Note ---
Date of Service February 02, 2024 Assessment & Plan (1) Stroke-like symptoms: (2) Hypertensive emergency: Plan 48 years Male with no reported medial history presented with- left eye pain, right side weakness, right facial droop. S/P thrombolysis #Pontine Stroke s/p TPA - Post Stroke care ongoing OT/PT on board: [facility] out; peeing normal #Hypertensive urgency - Bp: 116/71 today - Amlodipine 5 mg Once daily , Losartan 50 mg QAM, HCTZ 12.5 mg Once #Neurology input: appreciate rec - Stable; continue as prev recs. DVT PROPHYLAXIS- SCDs DISPO: Downgraded from ICU OT/PT : Rec Rehab placement; Case Mgmt on board Admission and Anticipated Discharge Date Admission Date: January 29, 2024 Supervising Physician Co-Signing Physician Notes Attending Physician Supervision Note: I independently interviewed and examined the patient and verified the de león history and physical, reviewed labs and image studies and agree with findings and care plan noted above. Seen this am. Pleasant and upbeat. Motivated to get better though. No change with exam findings Persistent right arm and leg weakness. Acute pontine stroke - s/p TNK. Echo - neg bubble study. continue asa 81mgs. DAPT for 3-weeks and then discontinue aspirin and remain on clopidogrel alone -maintain high dose statin. -PT/OT/ST -Blood pressure well controlled with losartan, amlodipine and hctz. heparin SQ Needs rehab. Subjective This AM, Mikal seems stable. He said he slept well, sounds less anxious, mentions about family. He is curious if he can go to rehab in [place] instead of here. He passed urine easily after catheter was out. Review of Systems Review of Systems: As per HPI Physical Exam Physical Exam: Constitutional: Anxious appearing, No acute distress, Sounds Dysarthric, Oriented to TPP, Follows command HEENT: Atraumatic, Normocephalic, No conjunctival injection CVS: S1 S2 no murmur, Regular Rhythm, no LE edema Respiratory: BL equal air entry with NVBS. No rhonchi, wheezes, or crackles. No increased work of breathing GI: Soft, Nondistended, Nontender, Normal Bowel sounds + MSK: No gross deformities noted Skin: Warm, Dry, No rashes Neuro: Alert, Oriented to TPP, Muscle power in right upper limb decreased 3/5, left Upper limb power normal, Right lower limb 4/5, Left LL Normal power BL UL and LL senses intact and equal as per patient. Can blow cheeks, shrug shoulders, EOM intact. Face looks symmetrical. Psych: Mood and Affect congruent, Cooperative on exam Results & Data Results & Data Vital Signs (Past 12 Hours) Vital Signs Temp Pulse Pulse Resp BP Pulse Ox Pulse Ox 02/02/24 11:15 36.7 C 68 18 116/71 98 02/02/24 08:27 02/02/24 08:00 97 02/02/24 07:56 36.5 C 60 16 119/80 97 02/02/24 07:12 76 02/02/24 04:40 36.7 C 86 20 117/79 92 O2 Del Method O2 Del Method 02/02/24 11:15 Room Air 02/02/24 08:27 Room Air 02/02/24 08:00 Room Air 02/02/24 07:56 Room Air 02/02/24 07:12 02/02/24 04:40 Room Air Resident Activity Tracking Resident Involvement: Resident Care Provided Care Provided: Adult Hospital Medicine
--- NOTE | 2024-02-03 09:25 | Hospitalist Progress Note ---
Date of Service February 03, 2024 Assessment & Plan (1) Stroke-like symptoms: (2) Hypertensive emergency: Plan 48 years Male with no reported medial history presented with- left eye pain, right side weakness, right facial droop. S/P thrombolysis #Pontine Stroke s/p TPA Post Stroke care ongoing OT/PT/ Speech on board: [facility] #Hypertension Presented in Urgency BP: 109/72 (as low as 81/55 today) Held amlodipine and HCTZ. Consider Losartan after lunch. #Neurology input: appreciate rec Stable; continue as prev recs. Dual AP for 3 weeks---> continue Aspirin only DVT PROPHYLAXIS- Heparin DISPO:OT/PT : Rec Rehab placement; Case Mgmt on board Full Code Admission and Anticipated Discharge Date Admission Date: January 29, 2024 Supervising Physician Co-Signing Physician Notes Attending Physician Supervision Note: I independently interviewed and examined the patient and verified the de león history and physical, reviewed labs and image studies and agree with findings and care plan noted above. Tired this morning. Alert on waking up. No change with exam findings Persistent right arm and leg weakness. Acute pontine stroke - s/p TNK. Echo - neg bubble study. continue asa 81mgs. DAPT for 3-weeks and then discontinue aspirin and remain on clopidogrel alone -maintain high dose statin. -PT/OT/ST -Blood pressure low and symptomatic - continue losartan. Hold amlodipine and hctz. heparin SQ Needs rehab. Subjective This AM, Mikal has some dizziness while waking up. He had some dizziness during therapy as well per his nurse. Otherwise his weakness seems stable, Sounds more motivated than yesterday. He has normal bowel and bladder. Review of Systems Review of Systems: As per HPI Physical Exam Physical Exam: Constitutional: No acute distress, less anxious, speech better than before HEENT: Atraumatic, Normocephalic, No conjunctival injection CVS: S1 S2 no murmur, Regular Rhythm, no LE edema Respiratory: BL equal air entry with NVBS. No rhonchi, wheezes, or crackles. No increased work of breathing GI: Soft, Nondistended, Nontender, Normal Bowel sounds + MSK: No gross deformities noted Skin: Warm, Dry, No rashes Neuro: Alert, Oriented to TPP, Muscle weakness in Right UL and LL stable. 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
[2024-02-04] MEDS: SODIUM CHLORIDE 0.9% 500 ML IV ONE (04:36)
[2024-02-04 06:56] LABS: Anion Gap 6 (3-11); BUN Creatinine Ratio 24.1 (10-20); Blood Urea Nitrogen 21 mg/dl (6-23); Carbon Dioxide 26 mmol/L (21-32); Chloride 107 mmol/L (98-107); Creatinine Clr Calc Pharmacy 87.9 ml/min; Glucose 96 mg/dl (70-99(Fasting)); Sodium 139 mmol/L (136-145)
--- NOTE | 2024-02-04 08:40 | Hospitalist Progress Note ---
Date of Service February 04, 2024 Assessment & Plan (1) Stroke-like symptoms: (2) Hypertensive emergency: Plan 48 years Male with no reported medial history presented with- left eye pain, right side weakness, right facial droop. S/P thrombolysis #Pontine Stroke s/p TPA Post Stroke care ongoing OT/PT/ Speech on board: [facility] #Vertigo and dizziness Sec to Brainstem stroke and Low BP -Held amlodipine and HCTZ. - Hold Losartan as well. -Recommend Vestibular therapy with PT. #Hypertension Presented in Urgency BP: 110/78 (as low as 97/59 last night---- 500 ml Fluid bolus received) Held amlodipine and HCTZ. #Neurology input: appreciate rec Stable; continue as prev recs. Dual AP for 3 weeks---> continue Aspirin only DVT PROPHYLAXIS- Heparin DISPO:OT/PT : Rec Rehab placement; Case Mgmt on board Full Code Admission and Anticipated Discharge Date Admission Date: January 29, 2024 Supervising Physician Co-Signing Physician Notes Attending Physician Supervision Note: I independently interviewed and examined the patient and verified the de león history and physical, reviewed labs and image studies and agree with findings and care plan noted above. Dizziness with ? vertigo. No change with exam findings Persistent right arm and leg weakness. Acute pontine stroke - left side weakness, vertigo Hypertensive emergency -s/p TNK. Echo - neg bubble study. DAPT for 3-weeks and then discontinue aspirin and remain on clopidogrel alone -maintain high dose statin. -PT/OT/ST including vestibular therapy to help with vertigo -Blood pressure now running normal after holding antihypertensives started after stroke. will d/c them. -continue coaching on behavior modifications to help with fluctuating blood pressures. heparin SQ Needs rehab. Subjective This AM, Mikal says he is doing fine. On leading if he has dizziness he says yes little bit sometime. He endorses people around him spin sometimes rather than him spinning, in addition to dizziness he feels. Otherwise his weakness seems stable. He has normal bowel and bladder. He slept well and is just curious about going home. Reminded he needs to go to rehab, he is agreeable. Review of Systems Review of Systems: As per HPI Physical Exam Physical Exam: Constitutional: No acute distress, less anxious, speech better than before HEENT: Atraumatic, Normocephalic, No conjunctival injection CVS: S1 S2 no murmur, Regular Rhythm, no LE edema Respiratory: BL equal air entry with NVBS. No rhonchi, wheezes, or crackles. No increased work of breathing GI: Soft, Nondistended, Nontender, Normal Bowel sounds + MSK: No gross deformities noted Skin: Warm, Dry, No rashes Neuro: Alert, Oriented to TPP, Muscle weakness in Right UL and LL stable. 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
[2024-02-04] MEDS: ACETAMINOPHEN 325 MG TAB PO PRN (10:29)
[2024-02-05 06:37] LABS: Basophils # (auto) 0.09 K/uL (0.00-0.20); Basophils % (auto) 1.2 %; Eosinophils # (auto) 0.39 K/uL (0.00-0.50); Hematocrit (blood only) 42.2 % (42.0-52.0); Hemoglobin 13.9 g/dl (14.0-18.0); Immature Granulocytes # (auto) 0.02 K/uL (0.01-0.20); Immature Granulocytes % (auto) 0.3 %; Lymphocytes # (auto) 2.92 K/uL (1.20-3.40); Lymphocytes % (auto) 37.4 %; Mean Corpuscular Hemoglobin 28.8 pg (25.0-34.0); Mean Corpuscular Hgb Conc 32.9 g/dL (32.0-36.0); Mean Corpuscular Volume 87.6 fL (80.0-100.0); Mean Platelet Volume 11.2 fL (9.4-12.4); Monocytes # (auto) 0.54 K/uL (0.11-0.59); Monocytes % (auto) 6.9 %; Neutrophils # (auto) 3.84 K/uL (1.40-6.50); Neutrophils % (auto) 49.2 %; Platelet Count 282 K/uL (130-400); RDW Coefficient of Variation 12.8 % (11.5-14.5); RDW Standard Deviation 40.9 fL (36.4-46.3); Red Blood Count 4.82 M/uL (4.70-6.10)
[2024-02-05 07:01] LABS: Potassium 4.1 mmol/L (3.5-5.1)
--- NOTE | 2024-02-05 08:58 | Hospitalist Progress Note ---
Date of Service February 05, 2024 Assessment & Plan (1) Stroke-like symptoms: (2) Hypertensive emergency: Plan 48 years Male with no reported medial history presented with- left eye pain, right side weakness, right facial droop. S/P thrombolysis #Pontine Stroke s/p TPA Presented with RUL and RLL weakness, dysarthria Dysarthria improved, weakness persists Post Stroke care ongoing OT/PT/ Speech on board: [facility] #Vertigo and dizziness Sec to Brainstem stroke and Low BP -Held amlodipine, HCTZ and Losartan -Recommend Vestibular therapy with PT. #Hypertension Presented in Urgency BP: 117/72; 97-133/ 59-90 Held amlodipine,HCTZ, Losartan #Neurology input: appreciate rec Stable; continue as prev recs. Dual AP for 3 weeks---> continue Aspirin only DVT PROPHYLAXIS- Heparin DISPO:OT/PT : Rec Rehab placement; Case Mgmt on board Full Code Admission and Anticipated Discharge Date Admission Date: January 29, 2024 Supervising Physician Co-Signing Physician Notes I personally examined the patient and verified all de león points of history and exam, discussed case, and agree with decision making with Dr Guerrier feeling ok but still dizzy, waiting on rehab vitals noted nad heent nc at mmm breathing unlabored no accessory muscles good effort skin without rashes pallor or icterus Acute pontine stroke - Hypertensive emergency --has had TNK -waiting on rehab placement -risk reduction plan Subjective This AM, Mikal says he is doing fine. He was still sleeping and when I asked him if he is feeling dizzy, he says he is fine. Normal bowel and bladder. Slept ok. Review of Systems Review of Systems: As per HPI Physical Exam Physical Exam: Constitutional: No acute distress, less anxious, speech better than before HEENT: Atraumatic, Normocephalic, No conjunctival injection CVS: S1 S2 no murmur, Regular Rhythm, no LE edema Respiratory: BL equal air entry with NVBS. No rhonchi, wheezes, or crackles. No increased work of breathing GI: Soft, Nondistended, Nontender, Normal Bowel sounds + MSK: No gross deformities noted Skin: Warm, Dry, No rashes Neuro: Alert, Oriented to TPP, Muscle weakness in Right UL and LL stable. 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
--- NOTE | 2024-02-05 17:45 | Billing Data ---
Date of Service February 05, 2024 Coding Level of Care Code 13928 SUB INP/OBS CARE
--- NOTE | 2024-02-06 10:32 | Death Pronouncement Note ---
Date of Service February 06, 2024 Pronouncement Note Admission Date Admission Date: January 29, 2024 Contributing Factors (1) Stroke-like symptoms: (2) Hypertensive emergency: Additional Data Attending physician: Vik Duarte DO
--- NOTE | 2024-02-06 10:32 | Hospitalist Progress Note ---
Date of Service February 06, 2024 Assessment & Plan (1) Stroke-like symptoms: (2) Hypertensive emergency: Plan 48 years Male with no reported medial history presented with- left eye pain, right side weakness, right facial droop. S/P thrombolysis #Pontine Stroke s/p TPA Presented with RUL and RLL weakness, dysarthria Dysarthria improved, weakness persists Post Stroke care ongoing OT/PT/ Speech on board: [facility] Dual AP for 3 weeks---> continue Aspirin only #Vertigo and dizziness Sec to Brainstem stroke and Low BP -Held amlodipine, HCTZ and Losartan - Vestibular therapy started yesterday; better today #Hypertension Presented in Urgency BP: 113/71; 108-120/ 59-87 Held amlodipine,HCTZ, Losartan DVT PROPHYLAXIS- Heparin DISPO:OT/PT : Rec Rehab placement; Case Mgmt on board Full Code Admission and Anticipated Discharge Date Admission Date: January 29, 2024 Supervising Physician Co-Signing Physician Notes I personally examined the patient and verified all de león points of history and exam, discussed case, and agree with decision making with Dr Guerrier feeling ok. still waiting on insurance paperwork, rehab placement. vitals noted nad heent nc at mmm breathing unlabored no accessory muscles good effort skin without rashes pallor or icterus. R arm weakness Acute pontine stroke - Hypertensive emergency --has had TNK -waiting on rehab placement -risk reduction plan will want ongoing/longitudinal outpatient follow up in regards to ?HTN vs all one spike in BP given how easy to control his BP has been since. 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 continue to follow inpatient, but would want close and ongoing outpt f/u as well. Subjective This AM, Mikal says he is doing fine. He sounds frustrated about what's going on with him. He did not mention me about headache today, however nurses informed me he is having headache. Normal bowel bladder. Sleep baseline Review of Systems Review of Systems: As per HPI Physical Exam Physical Exam: Constitutional: No acute distress, less anxious, speech better than before HEENT: Atraumatic, Normocephalic, No conjunctival injection CVS: S1 S2 no murmur, Regular Rhythm, no LE edema Respiratory: BL equal air entry with NVBS. No rhonchi, wheezes, or crackles. No increased work of breathing GI: Soft, Nondistended, Nontender, Normal Bowel sounds + MSK: No gross deformities noted Skin: Warm, Dry, No rashes Neuro: Alert, Oriented to TPP, Muscle weakness in Right UL and LL stable. No contracture. 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
[2024-02-06] MEDS: IBUPROFEN 200 MG/10 ML UDC PO PRN (14:11)
--- NOTE | 2024-02-06 15:44 | Billing Data ---
Date of Service February 06, 2024 Coding Level of Care Code 81855 SUB INP/OBS CARE
--- NOTE | 2024-02-07 09:36 | Hospitalist Progress Note ---
Date of Service February 07, 2024 Assessment & Plan (1) Stroke-like symptoms: (2) Hypertensive emergency: Plan 48 years Male with no reported medial history presented with- left eye pain, right side weakness, right facial droop. S/P thrombolysis #Pontine Stroke s/p TPA Presented with RUL and RLL weakness, dysarthria Dysarthria improved, weakness persists Post Stroke care ongoing OT/PT/ Speech on board: [facility] Dual AP for 3 weeks---> continue Aspirin only #Vertigo and dizziness Improved now Sec to Brainstem stroke and Low BP Held amlodipine, HCTZ and Losartan #Hypertension Presented in Urgency, he is not diagnosed HTN before this. BP: 123/84 this AM Anti-HTNsives on hold Given episodic HTN and bouts of episodic headaches; Work up for pheochromocytoma. DVT PROPHYLAXIS- Heparin DISPO:OT/PT : Rec Rehab placement; Case Mgmt on board Full Code Admission and Anticipated Discharge Date Admission Date: January 29, 2024 Supervising Physician Co-Signing Physician Notes I personally examined the patient and verified all de león points of history and exam, discussed case, and agree with decision making with Dr Guerrier feeling ok. still waiting on insurance paperwork, rehab placement. updated his boss by his request. vitals noted nad heent nc at mmm breathing unlabored no accessory muscles good effort skin without rashes pallor or icterus. R arm weakness Acute pontine stroke - Hypertensive emergency --has had TNK -waiting on rehab placement -risk reduction plan will want ongoing/longitudinal outpatient follow up in regards to ?HTN vs all one spike in BP given how easy to control his BP has been since. 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 pheo extremely rare but not unreasoanble given how stable he otherwise has looked as far as risks/reasons for HTN/vasospasm. continue to follow inpatient, but would want close and ongoing outpt f/u as well. Subjective This AM, Mikal says he is doing fine. He has headache yesterday, but doing better now. Asked him if I can talk to his family members, if they have any question for me, he mentions her is very busy. She will probably come to visit him sometimes soon. Normal bowel and bladder, slept baseline, just feels bored. Review of Systems Review of Systems: As per HPI Physical Exam Physical Exam: Constitutional: No acute distress, less anxious, speech better than before HEENT: Atraumatic, Normocephalic, No conjunctival injection CVS: S1 S2 no murmur, Regular Rhythm, no LE edema Respiratory: BL equal air entry with NVBS. No rhonchi, wheezes, or crackles. No increased work of breathing GI: Soft, Nondistended, Nontender, Normal Bowel sounds + MSK: No gross deformities noted Skin: Warm, Dry, No rashes Neuro: Alert, Oriented to TPP, Muscle weakness in Right UL and LL stable. No contracture. 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
--- NOTE | 2024-02-07 12:59 | Billing Data ---
Date of Service February 07, 2024 Coding Level of Care Code 00689 SUB INP/OBS CARE
--- NOTE | 2024-02-08 09:57 | Hospitalist Progress Note ---
Date of Service February 08, 2024 Assessment & Plan (1) Stroke-like symptoms: (2) Hypertensive emergency: Plan 48 years Male with no reported medial history presented with- left eye pain, right side weakness, right facial droop. S/P thrombolysis #Pontine Stroke s/p TPA Presented with RUL and RLL weakness, dysarthria Dysarthria improved, weakness improving with OT/PT Post Stroke care ongoing OT/PT/ Speech on board: [facility] Dual AP for 3 weeks---> continue Aspirin only #Vertigo and dizziness Improved now Sec to Brainstem stroke and Low BP Amlodipine, HCTZ and Losartan on hold. #Hypertension Presented in Urgency, he is not diagnosed HTN before this. BP: 120/73 this AM Anti-HTNsives on hold Given episodic HTN and bouts of episodic headaches; plasma metanephrines sent--report awaited. His HTN seems fluctuating; he needs to have longitudinal F/U with PCP for intermediate management. DVT PROPHYLAXIS- Heparin DISPO:OT/PT : Rec Rehab placement; Case Mgmt on board; approach for Medicaid Full Code Admission and Anticipated Discharge Date Admission Date: January 29, 2024 Supervising Physician Co-Signing Physician Notes I personally examined the patient and verified all de león points of history and exam, discussed case, and agree with decision making with Dr Guerrier no new issues no new complaints vitals noted nad heent nc at mmm breathing unlabored no accessory muscles good effort skin without rashes pallor or icterus. Acute pontine stroke - Hypertensive emergency --has had TNK -waiting on rehab placement/insurance coverage -risk reduction plan will want ongoing/longitudinal outpatient follow up in regards to ?HTN vs all one spike in BP given how easy to control his BP has been since. 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 pheo extremely rare but not unreasoanble given how stable he otherwise has looked as far as risks/reasons for HTN/vasospasm - labs pending. continue to follow inpatient, but would want close and ongoing outpt f/u as well. Subjective This AM, Mikal says he is doing fine. Normal bowel and bladder, slept baseline. He sounds motivated to continue exercise. He feels muscle power is getting better as well Review of Systems Review of Systems: As per HPI Physical Exam Physical Exam: Constitutional: No acute distress, less anxious, speech better than before HEENT: Atraumatic, Normocephalic, No conjunctival injection CVS: S1 S2 no murmur, Regular Rhythm, no LE edema Respiratory: BL equal air entry with NVBS. No rhonchi, wheezes, or crackles. No increased work of breathing GI: Soft, Nondistended, Nontender, Normal Bowel sounds + MSK: No gross deformities noted Skin: Warm, Dry, No rashes Neuro: Alert, Oriented to TPP, Muscle weakness in Right UL and LL has improved since admission. No contracture. 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
--- NOTE | 2024-02-08 12:50 | Billing Data ---
Date of Service February 08, 2024 Coding Level of Care Code 96941 SUB INP/OBS CARE
--- NOTE | 2024-02-09 09:22 | Hospitalist Progress Note ---
Date of Service February 09, 2024 Assessment & Plan (1) Stroke-like symptoms: (2) Hypertensive emergency: Plan 48 years Male with no reported medial history presented with- left eye pain, right side weakness, right facial droop. S/P thrombolysis #Pontine Stroke ; s/p TPA Presented with RUL and RLL weakness, dysarthria--- Thrombolyzed with TPA Dysarthria improved, weakness improving with OT/PT Post Stroke care ongoing OT/PT/ Speech on board: [facility] Dual AP for 3 weeks---> continue Aspirin only Heparin changed to Eliquis for DVT prophylaxis #Vertigo and dizziness Improved now Sec to Brainstem stroke and Low BP Amlodipine, HCTZ and Losartan on hold. #Hypertension Presented in Urgency, he is not diagnosed HTN before this. BP: 120/73 this AM Anti-HTNsives on hold Given episodic HTN and bouts of episodic headaches; plasma metanephrines sent--report awaited. His HTN seems fluctuating; he needs to have longitudinal F/U with PCP for skilled nursing management. DVT PROPHYLAXIS- Eliquis DISPO:OT/PT : Rec Rehab placement; Case Mgmt on board; approach for Medicaid ongoing. Full Code Admission and Anticipated Discharge Date Admission Date: January 29, 2024 Supervising Physician Co-Signing Physician Notes I personally examined the patient and verified all de león points of history and exam, discussed case, and agree with decision making with Dr Guerrier no new issues no new complaints, friend present at bedside - with pt's permission updated friend to the best of my ability. she noted he has a lot of stress and wonders if that could be contributory vitals noted nad heent nc at mmm breathing unlabored no accessory muscles good effort skin without rashes pallor or icterus. Acute pontine stroke - Hypertensive emergency --has had TNK -waiting on rehab placement/insurance coverage -risk reduction plan will want ongoing/longitudinal outpatient follow up in regards to ?HTN vs all one spike in BP given how easy to control his BP has been since. 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 pheo extremely rare but not unreasoanble given how stable he otherwise has looked as far as risks/reasons for HTN/vasospasm - labs pending. possible that it was a confluence of events "p erfect storm" leading to BP spike of which uncontrolled/unmanaged stress could be theoretically a contributor (d/w pt i would not call it the whole causative factor) - but then discussed stress management techniques with pt. continue to follow inpatient, but would want close and ongoing outpt f/u as well. still in hospital - not safe independent with his functional impairment; needing insurance coverage to get to rehab; still waiting on bureaucracy Subjective Mikal is primarily Slovenian speaking, however he can make good communication for history and exam in Hebrew. This AM, Mikal says he is doing fine. Normal bowel and bladder, slept baseline. He sounds motivated to continue exercise. He feels muscle power is getting better as well Review of Systems Review of Systems: As per HPI Physical Exam Physical Exam: Constitutional: No acute distress, less anxious, speech improved. HEENT: Atraumatic, Normocephalic, No conjunctival injection CVS: S1 S2 no murmur, Regular Rhythm, no LE edema Respiratory: BL equal air entry with NVBS. No rhonchi, wheezes, or crackles. No increased work of breathing GI: Soft, Nondistended, Nontender, Normal Bowel sounds + MSK: No gross deformities noted Skin: Warm, Dry, No rashes Neuro: Alert, Oriented to TPP, Muscle weakness in Right UL and LL has improved since admission. No contracture. 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
--- NOTE | 2024-02-09 15:33 | Billing Data ---
Date of Service February 09, 2024 Coding Level of Care Code 62300 SUB INP/OBS CARE
[2024-02-09] MEDS: APIXABAN 2.5 MG TAB PO SCH (20:44)
--- NOTE | 2024-02-10 06:48 | Hospitalist Progress Note ---
Date of Service February 10, 2024 Assessment & Plan (1) Stroke-like symptoms: (2) Dizziness: (3) Hypertensive emergency: Plan 48 years Male with no reported medial history presented with- left eye pain, right side weakness, right facial droop. S/P thrombolysis #Pontine Stroke ; s/p TPA Presented with RUL and RLL weakness, dysarthria--- Thrombolyzed with TPA Dysarthria improved, weakness improving with OT/PT Post Stroke care ongoing OT/PT/ Speech following: Awaiting Rehab placement Dual AP x 3 weeks then continue with Aspirin only Eliquis 2.5mg BID for DVT prophylaxis #Vertigo and dizziness Improved now, reporting dizziness with sitting up and standing. No dizziness laying down Due to Brainstem stroke and Low BP Amlodipine, HCTZ and Losartan on hold. #Hypertension Presented in Urgency, No hx of HTN prior to episode. 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 DVT PROPHYLAXIS- Eliquis 2.5 mg BID DISPO:OT/PT : Rec Rehab placement; Case Mgmt working on Medicaid approval and p lacds. Diet: Heart healthy Full Code Admission and Anticipated Discharge Date Admission Date: January 29, 2024 Supervising Physician Co-Signing Physician Notes Patient seen and examined, chart reviewed, case discussed with Dr. Nielson and I agree with the assessment and plan as above except as otherwise noted Labs and images reviewed Patient clinically stable however with ongoing right upper and right lower extremity strength deficits and some frustration with these. Concern for some underlying depression. Still somewhat unclear to his stroke pathology clearly was with hypertensive emergency on admission however degree of labile hypertension in absence of ongoing hypertension, medical history, risk factors, and with no history of stimulant use and is disproportionate. Patient under increased stress recently but again somewhat disproportionate to this. Patient does have metanephrines pending for [facility] evaluation. Case management is working on it for stress coverage for rehab due to significant degree of impairment due to his right- sided deficits, will continue to follow. Agree with above Subjective Mikal is 49 yo male who presents with pontine CVA on 01/29/24. He is primarily Tanzanian speaking, however he can effectively communicate in Ghanaian for history and exam. This AM, pt reports he feels as he did yesterday. He continues with frustration that he is weak at his right arm and leg. He denies CP, SOB, abdominal pain, nausea, vomiting, diarrhea. He feels dizzy upon sitting up and sometimes in standing. No recent falls. Review of Systems Review of Systems: As per HPI Physical Exam Physical Exam: Constitutional: No acute distress, less anxious, speech improved. HEENT: Atraumatic, Normocephalic, No conjunctival injection CVS: S1 S2 no murmur, Regular Rhythm, no LE edema Respiratory: Bilateral equal air entry. No rhonchi, wheezes, or crackles. No increased work of breathing GI: Soft, Nondistended, Nontender, Normal Bowel sounds MSK: No gross deformities noted Skin: Warm, Dry, No rashes Neuro: Alert and Oriented x 4 Muscle weakness in Right UE and LE continues. Limbs are not flaccid. No contracture. hide sorter II-XII intact Psych: Mood appears depressed however, cooperative on exam Results & Data Results & Data Vital Signs (Past 12 Hours) Vital Signs Temp Pulse Resp BP Pulse Ox O2 Del Method 02/09/24 22:41 36.7 C 59 L 18 112/66 98 Room Air Resident Activity Tracking Resident Involvement: Resident Care Provided Care Provided: Adult Hospital Medicine
--- NOTE | 2024-02-11 06:36 | Hospitalist Progress Note ---
Date of Service February 11, 2024 Assessment & Plan (1) Stroke-like symptoms: (2) Dizziness: (3) Hypertensive emergency: Plan 48 yo male with no reported medial history presented with left eye pain, right side weakness, right facial droop on 01/29/24. S/P thrombolysis for pontine CVA #Pontine Stroke ; s/p TPA Presented with RUL and RLL weakness, dysarthria--- Thrombolyzed with TPA Dysarthria improved, weakness improving with OT/PT Post Stroke care ongoing OT/PT/ Speech following: Awaiting Rehab placement Dual AP x 3 weeks then continue with Aspirin only Eliquis 2.5mg BID for DVT prophylaxis #Vertigo and dizziness Minimal dizziness with sitting today. Able to maintain balance in sitting without assistance or complaints of dizziness. BP's have been normal. Due to Brainstem stroke -Continue to hold Amlodipine, HCTZ and Losartan. #Hypertension Presented in Urgency, No hx of HTN prior to episode. BP: 122/78 this AM Anti-hypertensives remain on hold Awaiting result of Plasma metanephrines in setting of episodic HTN and bouts of episodic headaches; Likely will need longitudinal F/U with PCP for fci management. DVT PROPHYLAXIS- Eliquis 2.5 mg BID DISPO:OT/PT : Rec Rehab placement; Case Mgmt continues working on Medicaid approval and placement. Diet: Heart healthy Full Code Admission and Anticipated Discharge Date Admission Date: January 29, 2024 Supervising Physician Co-Signing Physician Notes Patient seen and examined, chart reviewed, case discussed with Dr. Nielson and I agree with the assessment and plan as above except as otherwise noted Labs and images reviewed Patient clinically stable however with ongoing right upper and right lower extremity strength deficits. He has intact shoulder flexion and abduction, but limited elbow extension and no distal strength. No significant change today. Still somewhat unclear to his stroke pathology clearly was with hypertensive emergency on admission however degree of labile hypertension in absence of ongoing hypertension, medical history, risk factors, and with no history of stimulant use and is disproportionate. Patient under increased stress recently but again somewhat disproportionate to this. Patient does have metanephrines pending. Case management is working on insurance coverage for rehab due to significant degree of impairment due to his right-sided deficits, will continue to follow. Agree with above Subjective Mikal is 49 yo male who presents with pontine CVA on 01/29/24. He is primarily Pakistani speaking, however he can communicate in Qatari for history and exam. This morning, pt reports he feels as he did yesterday. He is trying to work on moving his right arm and leg when ever he can. He is finding it difficult to straighten his right elbow and tries to push on it. He denies CP, SOB, abdominal pain, nausea, vomiting or diarrhea. He denies cough, congestion or fevers/chills. He feels his appetite is good. He does like to drink water, but he is trying to stay hydrated. Pt is eager to start rehab in order to continue to improve strength and regain function at his right arm and leg. Review of Systems Review of Systems: As per HPI Physical Exam Physical Exam: Constitutional: No acute distress, less anxious, speech improved. HEENT: Atraumatic, Normocephalic, No conjunctival injection CVS: S1 S2 no murmur, Regular Rhythm, no LE edema Respiratory: Bilateral equal air entry. No rhonchi, wheezes, or crackles. No increased work of breathing GI: Soft, Nondistended, Nontender, Normal Bowel sounds MSK: No gross deformities noted Skin: Warm, Dry, No rashes Neuro: Alert and Oriented x 4 Muscle weakness in Right UE and LE continues. Increased tone noted at bicep, but able to manually straighten elbow to constant gentle pressure. Right proximal UE strength is 3/5, distal is 1-0/5 Proximal LE strength is 3-4/5, distal is 1-2/5. No contractures. manager spring II-XII intact Psych: Mood appears depressed however, cooperative on exam Results & Data Results & Data Vital Signs (Past 12 Hours) Vital Signs Temp Pulse Resp BP Pulse Ox O2 Del Method 02/10/24 23:00 36.9 C 60 18 135/75 95 Room Air Resident Activity Tracking Resident Involvement: Resident Care Provided Care Provided: Adult Hospital Medicine
--- NOTE | 2024-02-12 07:02 | Hospitalist Progress Note ---
Date of Service February 12, 2024 Assessment & Plan (1) Left pontine CVA: Plan: seen on CT head and MRI brain, thrombolized with TPA (TNKase) on 01/29/24 - Weakness improving with OT/PT - Post-stroke care ongoing - OT/PT/ Speech following: awaiting Rehab placement - DAPT 3 weeks then continue with Aspirin only - Eliquis 2.5mg BID for DVT prophylaxis (2) Hypertensive emergency: Plan: resolved, BP currently on the low end of normal to slightly low - continue watching vital signs - continue encouraging PO fluids and meals - awaiting plasma metanephrines (3) Dizziness: Plan: Continues to improve. Able to maintain balance in sitting without assistance or complaints of dizziness. BP's have been normal-low, otherwise asymptomatic. - Continue to hold Amlodipine, HCTZ and Losartan - continue encouraging PO fluids and meals Plan DVT PROPHYLAXIS- Eliquis 2.5 mg BID DISPO:OT/PT : Rec Rehab placement; Case Mgmt continues working on Medicaid approval and placement. Diet: Heart healthy Full Code Admission and Anticipated Discharge Date Admission Date: January 29, 2024 Supervising Physician Co-Signing Physician Notes ATTESTATION I also saw the patient and confirmed de león portions of the history and exam. I agree with the impression and plan in the resident documentation, and as s ummarized below. Sleeping but awakens to voice. No complaints this morning. EXAM 103/51, 60, 20 Alert and oriented. RUE neurological findings unchanged and as described CV RRR Rspirations non labored DATA IMPRESSION & PLAN Pontine Stroke, S/P TPA HTN, resolved Monitor BP, although have been normal to low end normal Case management working on insurance and placement Plasma free metanephrines pending but overall suspicion is low Continue PT Additional per resident documentation Subjective Patient was seen and evaluated at bedside, was resting with head under bed covers but removed them when addressed him. Denies any pain or particular concerns overnight. Endorses he is feeling pretty well this morning, states he has been out of bed and walking with his walker to the bathroom without assistance. Endorses he has been having regular bowel movements and urinating without concern. States he has been trying to move his right arm and leg throughout the day to encourage movement and strength. Endorses he has been eating and drinking well. Patient aware that we are awaiting his placement in rehab facility. Denies any headache, neck pain, visual changes, cough, SOB, nausea, vomiting, chest pain, abdominal pain, LE swelling/pain. Review of Systems Review of Systems: per HPI Physical Exam Physical Exam: Constitutional: A&Ox3, appears stated age, in no acute distress HEENT: anicteric sclerae, EOM intact Cardiovascular: RRR, +s1/s2, no m/r/g Respiratory: clear to auscultation b/l, good equal air entry b/l, no wheeze/rales/rhonchi GI: abdomen soft, +BS, no tenderness to palpation Neuro: no facial droop, speech intact, sensation grossly intact; Right extremity motor deficits (see below); CN II-XII appearing grossly intact MSK: - Right 4/5 strength in RUE, 2/5 strengt h in RLE dorsiflexion, 4/5 strength in RLE plantarflexion - Left 5/5 strength in LUE, 5/5 strength in LLE dorsiflexion, 5/5 strength in LLE plantarflexion Results & Data Results & Data Vital Signs (Past 12 Hours) Vital Signs Temp Pulse Resp BP Pulse Ox O2 Del Method 02/11/24 23:28 36.5 C 66 18 132/78 97 Room Air Resident Activity Tracking Resident Involvement: Resident Care Provided Care Provided: Adult Hospital Medicine
--- NOTE | 2024-02-13 06:41 | Hospitalist Progress Note ---
Date of Service February 13, 2024 Assessment & Plan (1) Left pontine CVA: Plan: seen on CT head and MRI brain, thrombolized with TPA (TNKase) on 01/29/24 - Weakness improving with OT/PT - OT/PT/ Speech following: awaiting Rehab placement - PT had pt walking today with R forearm rest on walker, notable foot drop in RLE and minimal wrist movement of RUE, continue with PT - DAPT 3 weeks then continue with Aspirin only - Eliquis 2.5mg BID for DVT prophylaxis (2) Hypertensive emergency: Plan: resolved, BP within normal limits as of present - continue monitoring vital signs - continue encouraging PO fluids and meals - awaiting plasma metanephrines ordered on 02/07/24 (3) Dizziness: Plan: Continues to improve. Able to maintain balance in sitting without assistance or complaints of dizziness. BP's have been normal-low, otherwise asymptomatic. - Continue to hold Amlodipine, HCTZ and Losartan - continue encouraging PO fluids and meals (4) Hyperlipidemia: Plan: chronic, LDL 192 on 01/30/24 - continue Atorvastatin 40mg qHS Plan DVT PROPHYLAXIS- Eliquis 2.5 mg BID DISPO:OT/PT : Rec Rehab placement; Case Mgmt continues working on Medicaid approval and placement. Diet: Heart healthy Full Code Admission and Anticipated Discharge Date Admission Date: January 29, 2024 Supervising Physician Co-Signing Physician Notes ATTESTATION I also saw the patient and confirmed de león portions of the history and exam. I agree with the impression and plan in the resident documentation, and as summarized below. No complaints this morning. He reports walking in the hallway this morning. His walker has been fitted with a "rest" for his RUE. EXAM 117/74, 61, 18 Alert and oriented. CV RRR Respirations non labored DATA CBC and BMP unremarkable IMPRESSION & PLAN Pontine Stroke, S/P TPA HTN, resolved Patient notes continued improvement with PT Case management working on insurance and placement Plasma free metanephrines pending but overall suspicion remains low Continue PT Additional per resident documentation Subjective Patient was seen and evaluated at bedside, was resting comfortably in bed in no apparent distress. Denies any pain or particular concerns overnight. Endorses he continues to feel well this morning, has been out of bed and walking with his walker to the bathroom without assistance. Endorses he has been having regular bowel movements and urinating without concern. Continues trying to move his right arm and leg throughout the day to encourage movement and strength. Endorses he has been eating and drinking well, but did not want to have breakfast this morning due to lack of appetite. Patient aware that we are awaiting his placement in short-term rehab facility. Denies any headache, neck pain, visual changes, cough, SOB, nausea, vomiting, chest pain, abdominal pain, LE swelling/pain. Review of Systems Review of Systems: per HPI Physical Exam Physical Exam: Constitutional: A&Ox3, appears stated age, in no acute distress HEENT: anicteric sclerae, EOM intact Cardiovascular: RRR, +s1/s2, no m/r/g Respiratory: clear to auscultation b/l, good equal air entry b/l, no wheeze/rales/rhonchi GI: abdomen soft, +BS, no tenderness to palpation Neuro: no facial droop, speech intact, sensation grossly intact; Right extremity motor deficits (see below); CN II-XII appearing grossly intact MSK: - Right 4/5 strength in R elbow flexion and extension; 1/5 strength in R wrist extension, flexion, and nutrition services assistant; 2/5 strength in RLE dorsiflexion, 4/5 strength in RLE plantarflexion - Left 5/5 strength in LUE, 5/5 strength in LLE dorsiflexion, 5/5 strength in LLE plantarflexion Results & Data Results & Data Vital Signs (Past 12 Hours) Vital Signs Temp Pulse Resp BP Pulse Ox O2 Del Method 02/12/24 19:27 36.7 C 78 18 134/73 97 Room Air Resident Activity Tracking Resident Involvement: Resident Care Provided Care Provided: Adult Hospital Medicine
[2024-02-13 09:55] LABS: Basophils # (auto) 0.11 K/uL (0.00-0.20); Basophils % (auto) 1.2 %; Eosinophils # (auto) 0.57 K/uL (0.00-0.50); Eosinophils % (auto) 6.1 %; Hematocrit (blood only) 44.6 % (42.0-52.0); Hemoglobin 14.8 g/dl (14.0-18.0); Immature Granulocytes # (auto) 0.05 K/uL (0.01-0.20); Immature Granulocytes % (auto) 0.5 %; Lymphocytes # (auto) 2.86 K/uL (1.20-3.40); Lymphocytes % (auto) 30.7 %; Mean Corpuscular Hemoglobin 29.3 pg (25.0-34.0); Mean Corpuscular Hgb Conc 33.2 g/dL (32.0-36.0); Mean Corpuscular Volume 88.3 fL (80.0-100.0); Mean Platelet Volume 10.7 fL (9.4-12.4); Monocytes % (auto) 7.5 %; Neutrophils # (auto) 5.04 K/uL (1.40-6.50); Platelet Count 276 K/uL (130-400); RDW Coefficient of Variation 12.9 % (11.5-14.5); RDW Standard Deviation 42.1 fL (36.4-46.3); Red Blood Count 5.05 M/uL (4.70-6.10); White Blood Count 9.33 K/ul (4.8-10.8)
[2024-02-13 10:16] LABS: BUN Creatinine Ratio 13.8 (10-20); Calcium 9.5 mg/dl (8.6-10.3); Creatinine Clr Calc Pharmacy 86.9 ml/min; Potassium 4.2 mmol/L (3.5-5.1)
[2024-02-13 14:13] LABS: Metanephrine, Plasma <25 pg/mL (<=57); Normetanephrine Plasma 33 pg/mL (<=148); Total Metanephrine Plasma 33 pg/mL (<=205)
--- NOTE | 2024-02-14 06:41 | Hospitalist Progress Note ---
Date of Service February 14, 2024 Assessment & Plan (1) Left pontine CVA: Plan: seen on CT head and MRI brain, thrombolized with TPA (TNKase) on 01/29/24 - Weakness improving with OT/PT - OT/PT/ Speech following: awaiting Rehab placement - PT had pt walking today 135' with R forearm rest on walker, notable foot drop in RLE and minimal wrist movement of RUE, continue PT - DAPT 3 weeks then continue with Aspirin only - Eliquis 2.5mg BID for DVT prophylaxis (2) Hypertensive emergency: Plan: resolved, BP within normal limits as of present - continue monitoring vital signs - continue encouraging PO fluids and meals - plasma metanephrines unremarkable (3) Dizziness: Plan: resolved, able to maintain balance in sitting without assistance or complaints of dizziness. BP's have been normal-low, otherwise asymptomatic. - Continue to hold Amlodipine, HCTZ and Losartan - continue encouraging PO fluids and meals (4) Hyperlipidemia: Plan: chronic, LDL 192 on 01/30/24 - continue Atorvastatin 40mg qHS Plan DVT PROPHYLAXIS- Eliquis 2.5 mg BID DISPO:OT/PT : Rec Rehab placement; Case Mgmt continues working on Medicaid approval and placement. Diet: Heart healthy Full Code Admission and Anticipated Discharge Date Admission Date: January 29, 2024 Supervising Physician Co-Signing Physician Notes ATTESTATION I also saw the patient and confirmed de león portions of the history and exam. I agree with the impression and plan in the resident documentation, and as summarized below. No complaints this morning. Feels is is continuing to improve in terms of ambulation. EXAM 117/77, 64, 18 Alert and oriented. CV RRR Respirations non labored DATA CBC and BMP 02/12 unremarkable Plasma free metanephrines normal IMPRESSION & PLAN Pontine Stroke, S/P TPA HTN, resolved Patient notes continued improvement with PT Case management continues to work on insurance and placement Continue PT Additional per resident documentation Subjective Patient was seen and evaluated at bedside, was resting comfortably in bed in no apparent distress. Denies any pain or particular concerns overnight. Endorses he continues to feel well this morning, has been out of bed and walking with his walker to the bathroom without assistance. Endorses he has been having regular bowel movements and urinating without concern. Continues trying to move his right arm and leg throughout the day to encourage movement and strength. Endorses he has been eating and drinking well, will try eating breakfast this AM. Patient aware that we are awaiting his placement in short-term rehab facility. Denies any headache, neck pain, visual changes, cough, SOB, nausea, vomiting, chest pain, abdominal pain, LE swelling/pain. Review of Systems Review of Systems: per HPI Physical Exam Physical Exam: Constitutional: A&Ox3, appears stated age, in no acute distress HEENT: anicteric sclerae, EOM intact Cardiovascular: RRR, +s1/s2, no m/r/g Respiratory: clear to auscultation b/l, good equal air entry b/l, no wheeze/rales/rhonchi GI: abdomen soft, +BS, no tenderness to palpation Neuro: no facial droop, speech intact, sensation grossly intact; Right extremity motor deficits (see below); CN II-XII appearing grossly intact MSK: - Right 4/5 strength in R elbow flexion and extension; 2/5 strength in R wrist extension, flexion, and robotic weld technician; 2/5 strength in RLE dorsiflexion, 4/5 strength in RLE plantarflexion - Left 5/5 strength in LUE, 5/5 strength in LLE dorsiflexion, 5/5 strength in LLE plantarflexion Results & Data Results & Data Vital Signs (Past 12 Hours) Vital Signs Temp Pulse Resp BP Pulse Ox O2 Del Method 02/13/24 19:13 36.7 C 72 18 123/66 95 Room Air Laboratory Results 02/07/24 Range/Units 12:29 Plasma Metanephrine <25 (<=57) pg/mL Plasma Normetanephrine 33 (<=148) pg/mL Plas Total Metaneph 33 (<=205) pg/mL Resident Activity Tracking Resident Involvement: Resident Care Provided Care Provided: Adult Hospital Medicine
--- NOTE | 2024-02-15 07:09 | Hospitalist Progress Note ---
Date of Service February 15, 2024 Assessment & Plan (1) Left pontine CVA: Plan: seen on CT head and MRI brain, thrombolized with TPA (TNKase) on 01/29/24 - Weakness improving with OT/PT - OT/PT/ Speech following: awaiting Rehab placement - DAPT 3 weeks then continue with Plavix only, per neurology recommendation - Eliquis 2.5mg BID for DVT prophylaxis (2) Hypertensive emergency: Plan: resolved, BP within normal limits as of present - continue monitoring vital signs - continue encouraging PO fluids and meals - plasma metanephrines unremarkable (3) Dizziness: Plan: resolved, able to maintain balance in sitting without assistance or complaints of dizziness. BP's have been normal-low, otherwise asymptomatic. - Continue to hold Amlodipine, HCTZ and Losartan - continue encouraging PO fluids and meals (4) Hyperlipidemia: Plan: chronic, LDL 192 on 01/30/24 - continue Atorvastatin 40mg qHS Plan DVT PROPHYLAXIS- Eliquis 2.5 mg BID DISPO:OT/PT : Rec Rehab placement; Case Mgmt continues working on Medicaid approval and placement. Diet: Heart healthy Full Code Admission and Anticipated Discharge Date Admission Date: January 29, 2024 Supervising Physician Co-Signing Physician Notes ATTESTATION I also saw the patient and confirmed de león portions of the history and exam. I agree with the impression and plan in the resident documentation, and as summarized below. EXAM 168/90, 76, 18 Alert and oriented. CV RRR Respirations non labored DATA CBC and BMP 02/12 unremarkable Plasma free metanephrines normal IMPRESSION & PLAN Pontine Stroke, S/P TPA HTN, resolved Patient notes continued improvement with PT Case management continues to work on insurance and placement Note patient on low dose apixaban for prophylaxis (declined SC Lovenox/heparin); no identifiable need for long-term therapeutic AC Continue PT Additional per resident documentation Subjective Patient was seen and evaluated at bedside, was resting comfortably in bed in no apparent distress. Endorses a 5/10 headache around his L eye and the back of his head overnight, received Tylenol and reports it has improved significantly this morning. No visual changes, dizziness, lightheadedness. Endorses he feels well this morning, has been out of bed and walking with his walker to the bathroom without assistance. Endorses he has been having regular bowel movements and urinating without concern. Continues trying to move his right arm and leg throughout the day to encourage movement and strength, states he's been able to more R fingers more, R wrist still very weak. Endorses he has been eating and drinking well. Patient aware that he is awaiting placement in short-term rehab facility. Denies any headache, neck pain, visual changes, cough, SOB, nausea, vomiting, chest pain, abdominal pain, LE swelling/pain. Review of Systems Review of Systems: per HPI Physical Exam Physical Exam: Constitutional: A&Ox3, appears stated age, in no acute distress HEENT: anicteric sclerae, EOM intact Cardiovascular: RRR, +s1/s2, no m/r/g Respiratory: clear to auscultation b/l, good equal air entry b/l, no wheeze/rales/rhonchi GI: abdomen soft, +BS, no tenderness to palpation Neuro: no facial droop, speech intact, sensation grossly intact; Right extremity motor deficits (see below); CN II-XII appearing grossly intact MSK: - Right 4/5 strength in R elbow flexion and extension; 1/5 strength in R wrist extension, flexion, 2/5 strength gizzard peeler; 2/5 strength in RLE dorsiflexion, 4/5 strength in RLE plantarflexion - Left 5/5 strength in LUE, 5/5 strength in LLE dorsiflexion, 5/5 strength in LLE plantarflexion Results & Data Results & Data Vital Signs (Past 12 Hours) Vital Signs Temp Pulse Resp BP Pulse Ox O2 Del Method 02/14/24 22:21 36.7 C 73 18 143/84 H 97 Room Air Resident Activity Tracking Resident Involvement: Resident Care Provided Care Provided: Adult Hospital Medicine
--- NOTE | 2024-02-16 07:39 | Hospitalist Progress Note ---
Date of Service February 16, 2024 Assessment & Plan (1) Left pontine CVA: Plan: seen on CT head and MRI brain, thrombolyzed with TPA (TNKase) on 01/29/24 - Weakness improving with OT/PT - OT/PT/ Speech following: awaiting Rehab placement - DAPT 3 weeks then continue with Plavix only, per neurology recommendation - Eliquis 2.5mg BID for DVT prophylaxis (2) Hypertensive emergency: Plan: resolved, BP within normal limits as of present - continue monitoring vital signs - continue encouraging PO fluids and meals - plasma metanephrines unremarkable (3) Dizziness: Plan: resolved, able to maintain balance in sitting without assistance or complaints of dizziness. BP's have been normal-low, otherwise asymptomatic. - Continue to hold Amlodipine, HCTZ and Losartan - continue encouraging PO fluids and meals (4) Hyperlipidemia: Plan: chronic, LDL 192 on 01/30/24 - continue Atorvastatin 40mg qHS Plan DVT PROPHYLAXIS- Eliquis 2.5 mg BID DISPO:OT/PT : Rec Rehab placement; Case Mgmt continues working on Medicaid approval and placement. Diet: Heart healthy Full Code Admission and Anticipated Discharge Date Admission Date: January 29, 2024 Supervising Physician Co-Signing Physician Notes I personally examined the patient and verified de león points of history and exam, discussed case, and agree with decision making and plan documented by Dr. Slade. Patient continues to await medical assistance application so that he can pursue rehabilitation for his acute pontine stroke. Patient continues to have right- sided upper and lower extremity weakness. His and son were at bedside today from [place]. Subjective Patient was seen and evaluated at bedside, was resting comfortably in bed in no apparent distress. Denies having any issues overnight, no headache has he had the night prior. Endorses he feels well this morning, has been out of bed and walking with his walker to the bathroom without assistance. Endorses he has been having regular bowel movements and urinating without c oncern. Continues trying to move his right arm and leg throughout the day to encourage movement and strength. Significant improvement of R hand fws faculty assistant strength, small movement of R wrist. Endorses he has been eating and drinking well. Patient aware that he is awaiting placement in short-term rehab facility pending insurance. Denies any headache, neck pain, visual changes, cough, SOB, nausea, vomiting, chest pain, abdominal pain, LE swelling/pain. Review of Systems Review of Systems: per HPI Physical Exam Physical Exam: Constitutional: A&Ox3, appears stated age, in no acute distress HEENT: anicteric sclerae, EOM intact Cardiovascular: RRR, +s1/s2, no m/r/g Respiratory: clear to auscultation b/l, good equal air entry b/l, no wheeze/rales/rhonchi GI: abdomen soft, +BS, no tenderness to palpation Neuro: no facial droop, speech intact, sensation grossly intact; Right extremity motor deficits (see below); CN II-XII appearing grossly intact MSK: - Right 4/5 strength in R elbow flexion and extension; 1/5 strength in R wrist extension and flexion, 4/5 strength fws faculty assistant; 1/5 strength in RLE dorsiflexion, 4/5 strength in RLE plantarflexion - Left 5/5 strength in LUE, 5/5 strength in LLE dorsiflexion, 5/5 strength in LLE plantarflexion Results & Data Results & Data Vital Signs (Past 12 Hours) Vital Signs Temp Pulse Resp BP Pulse Ox O2 Del Method 02/15/24 22:32 36.5 C 78 16 147/91 H 97 Room Air Resident Activity Tracking Resident Involvement: Resident Care Provided Care Provided: Adult Hospital Medicine
--- NOTE | 2024-02-17 07:36 | Hospitalist Progress Note ---
Date of Service February 17, 2024 Assessment & Plan (1) Left pontine CVA: Plan: seen on CT head and MRI brain, thrombolyzed with TPA (TNKase) on 01/29/24 - Weakness improving with OT/PT - OT/PT/ Speech following: awaiting Rehab placement - DAPT 3 weeks then continue with Plavix only, per neurology recommendation - Eliquis 2.5mg BID for DVT prophylaxis (2) Hypertensive emergency: Plan: resolved, BP within normal limits as of present - continue monitoring vital signs - continue encouraging PO fluids and meals - plasma metanephrines unremarkable (3) Dizziness: Plan: resolved, able to maintain balance in sitting without assistance or complaints of dizziness. BP's have been normal-low, otherwise asymptomatic. - Continue to hold Amlodipine, HCTZ and Losartan - continue encouraging PO fluids and meals (4) Hyperlipidemia: Plan: chronic, LDL 192 on 01/30/24 - continue Atorvastatin 40mg qHS Plan DVT PROPHYLAXIS- Eliquis 2.5 mg BID DISPO:OT/PT : Rec acute rehab placement; Case Mgmt continues working on Medicaid approval and placement. Diet: Heart healthy Full Code Admission and Anticipated Discharge Date Admission Date: January 29, 2024 Supervising Physician Co-Signing Physician Notes I personally examined the patient and verified de león points of history and exam, discussed case, and agree with decision making and plan documented by Dr. Slade. Continue to await application for medical assistance so patient can pursue rehab post CVA. Subjective Patient was seen and evaluated at bedside, was resting comfortably in bed in no apparent distress. Denies having any issues overnight, no headache. Endorses he feels well this morning, has been out of bed and walking with his walker to the bathroom without assistance. Endorses he has been having regular bowel movements and urinating without concern. Continues trying to move his right arm and leg throughout the day to encourage movement and strength. R hand chair and couch maker strength continues to improve, still minimal movement of R wrist and R foot dorsiflexion. Endorses he has been eating and drinking well. Family from [place] visited him yesterday 02/16/24 and will be seeing him again today before driving back. Patient and family aware that he is awaiting placement in short-term rehab facility pending insurance. Denies any headache, neck pain, visual changes, cough, SOB, nausea, vomiting, chest pain, abdominal pain, LE swelling/pain. Review of Systems Review of Systems: per HPI Physical Exam Physical Exam: Constitutional: A&Ox3, appears stated age, in no acute distress HEENT: anicteric sclerae, EOM intact Cardiovascular: RRR, +s1/s2, no m/r/g Respiratory: clear to auscultation b/l, good equal air entry b/l, no wheeze/rales/rhonchi GI: abdomen soft, +BS, no tenderness to palpation Neuro: no facial droop, speech intact, sensation grossly intact; Right extremity motor deficits (see below); CN II-XII appearing grossly intact MSK: - Right 4/5 strength in R elbow flexion and extension; 1/5 strength in R wrist extension and flexion, 4/5 strength chair and couch maker; 1/5 strength in RLE dorsiflexion, 5/5 strength in RLE plantarflexion - Left 5/5 strength in LUE, 5/5 strength in LLE dorsiflexion, 5/5 strength in LLE plantarflexion Results & Data Results & Data Vital Signs (Past 12 Hours) Vital Signs Temp Pulse Resp BP Pulse Ox O2 Del Method 02/17/24 07:27 36.7 C 69 17 126/81 96 Room Air 02/16/24 22:23 36.5 C 78 18 151/92 H 97 Room Air Resident Activity Tracking Resident Involvement: Resident Care Provided Care Provided: Adult Hospital Medicine
--- NOTE | 2024-02-18 06:41 | Hospitalist Progress Note ---
Date of Service February 18, 2024 Assessment & Plan (1) Left pontine CVA: Plan: seen on CT head and MRI brain, thrombolyzed with TPA (TNKase) on 01/29/24 - Weakness improving with OT/PT - OT/PT/ Speech following: awaiting Rehab placement - DAPT 3 weeks then continue with Plavix only, per neurology recommendation - Eliquis 2.5mg BID for DVT prophylaxis (2) Hypertensive emergency: Plan: resolved, BP within normal limits as of present - continue monitoring vital signs - continue encouraging PO fluids and meals - plasma metanephrines unremarkable (3) Dizziness: Plan: resolved, able to maintain balance in sitting without assistance or complaints of dizziness. BP's have been normal-low, otherwise asymptomatic. - Continue to hold Amlodipine, HCTZ and Losartan - continue encouraging PO fluids and meals (4) Hyperlipidemia: Plan: chronic, LDL 192 on 01/30/24 - continue Atorvastatin 40mg qHS Plan DVT PROPHYLAXIS- Eliquis 2.5 mg BID DISPO:OT/PT : Rec acute rehab placement; Case Mgmt continues working on Medicaid approval and placement. Diet: Heart healthy Full Code Admission and Anticipated Discharge Date Admission Date: January 29, 2024 Supervising Physician Co-Signing Physician Notes I personally examined the patient and verified de león points of history and exam, discussed case, and agree with decision making and plan documented by Dr. Slade. Patient endorses some improvement in ability to move right hand and foot. Anticipate update on status of application for medical assistance. Patient will benefit from acute rehabilitation. Subjective Patient was seen and evaluated at bedside, was resting comfortably in bed in no apparent distress. Only issue overnight was a slight nosebleed with apparent clot upon blowing nose hard. Bleeding stopped with nasal packing and pressure, no issues since then. Endorses he feels well this morning, has been out of bed and walking with his walker to the bathroom without assistance. States he has not had a BM in a couple days, but urinating without issue. Does not desire laxative. Continues trying to move his right arm and leg throughout the day to encourage movement and strength, visibly improving with range of motion and vigor. R hand property utilization manager strength continues to improve, still minimal movement of R wrist and R foot dorsiflexion but has been improving with inversion and eversion. Endorses he has been eating and drinking well. Patient and family aware that he is awaiting placement in short-term rehab facility pending insurance, possible d/c tomorrow 02/19/24. Denies any headache, neck pain, visual changes, cough, SOB, nausea, vomiting, chest pain, abdominal pain, LE swelling/pain. Review of Systems Review of Systems: per HPI Physical Exam Physical Exam: Constitutional: A&Ox3, appears stated age, in no acute distress HEENT: anicteric sclerae, EOM intact Cardiovascular: RRR, +s1/s2, no m/r/g Respiratory: clear to auscultation b/l, good equal air entry b/l, no wheeze/rales/rhonchi GI: abdomen soft, +BS, no tenderness to palpation Neuro: no facial droop, speech intact, sensation grossly intact; Right extremity motor deficits (see below); CN II-XII appearing grossly intact MSK: - Right 4/5 strength in R elbow flexion and extension; 1/5 strength in R wrist extension and flexion, 4/5 strength property utilization manager; 1/5 strength in RLE dorsiflexion, 3/5 strength in RLE inversion and eversion, 5/5 strength in RLE plantarflexion - Left 5/5 strength in LUE, 5/5 strength in LLE dorsiflexion, 5/5 strength in LLE plantarflexion Results & Data Results & Data Vital Signs (Past 12 Hours) Vital Signs Temp Pulse Resp BP Pulse Ox O2 Del Method 02/17/24 22:47 36.6 C 71 16 129/81 98 Room Air Resident Activity Tracking Resident Involvement: Resident Care Provided Care Provided: Adult Hospital Medicine
--- NOTE | 2024-02-19 07:11 | Hospitalist Progress Note ---
Date of Service February 19, 2024 Assessment & Plan (1) Left pontine CVA: Plan: seen on CT head and MRI brain, thrombolyzed with TPA (TNKase) on 01/29/24 - Weakness improving with OT/PT - OT/PT/ Speech following: awaiting Rehab placement - DAPT 3 weeks then continue with Plavix only, per neurology recommendation - Eliquis 2.5mg BID for DVT prophylaxis (2) Hypertensive emergency: Plan: resolved, BP within normal limits as of present - continue monitoring vital signs - continue encouraging PO fluids and meals - plasma metanephrines unremarkable (3) Dizziness: Plan: resolved, able to maintain balance in sitting without assistance or complaints of dizziness. BP's have been normal-low, otherwise asymptomatic. - Continue to hold Amlodipine, HCTZ and Losartan - continue encouraging PO fluids and meals (4) Hyperlipidemia: Plan: chronic, LDL 192 on 01/30/24 - continue Atorvastatin 40mg qHS Plan DVT PROPHYLAXIS- Eliquis 2.5 mg BID DISPO:OT/PT : Rec acute rehab placement; Case Mgmt continues working on Medicaid approval and placement. Diet: Heart healthy Full Code Admission and Anticipated Discharge Date Admission Date: January 29, 2024 Supervising Physician Co-Signing Physician Notes I personally examined the patient and verified all de león points of history and exam, discussed case, and agree with decision making with Dr Slade Getting around better, but right arm is still quite weak. Discussed with case management, still awaiting any insurance approval. Vitals noted, in general he is awake and alert pleasant no distress. Right arm still with very poor gross motor and almost no fine motor, but his ambulation is slow and steady with a modified walker. Breathing unlabored no accessory muscle use good effort. Skin without rashes pallor or icterus. Pontine strokeetiology unclear. Med management/secondary risk reduction/PT and OT eval and treat. Ideally to rehabbut still pending insurance approval. otherwise as above Subjective Patient was seen and evaluated at bedside, was resting comfortably in bed in no apparent distress. No nosebleeds since night prior. Endorses he feels well this morning, has been out of bed and walking with his walker to the bathroom without assistance. States he has not had a BM in a couple days, but urinating without issue. Still does not desire laxative. Continues trying to move his right arm and leg throughout the day to encourage movement and strength, range of motion and vigor with movement continue to improve. R hand newspaper copy editor strength continues to improve, still minimal movement of R wrist and R foot dorsiflexion but has been improving with inversion and eversion. Endorses he has been eating and drinking well. Aware we are still awaiting placement pending insurance approval. Denies any headache, neck pain, visual changes, cough, SOB, nausea, vomiting, chest pain, abdominal pain, LE swelling/pain. Review of Systems Review of Systems: per HPI Physical Exam Physical Exam: Constitutional: A&Ox3, appears stated age, in no acute distress HEENT: anicteric sclerae, EOM intact Cardiovascular: RRR, +s1/s2, no m/r/g Respiratory: clear to auscultation b/l, good equal air entry b/l, no wheeze/rales/rhonchi GI: abdomen soft, +BS, no tenderness to palpation Neuro: no facial droop, speech intact, sensation grossly intact; Right extremity motor deficits (see below); CN II-XII appearing grossly intact MSK: - Right 4/5 strength in R elbow flexion and extension; 1/5 strength in R wrist extension and flexion, 4/5 strength newspaper copy editor; 2/5 strength in RLE dorsiflexion, 3/5 strength in RLE inversion and eversion, 5/5 strength in RLE plantarflexion - Left 5/5 strength in LUE, 5/5 strength in LLE dorsiflexion, 5/5 strength in LLE plantarflexion Results & Data Results & Data Vital Signs (Past 12 Hours) Vital Signs Temp Pulse Resp BP Pulse Ox O2 Del Method 02/18/24 23:06 36.6 C 64 18 121/70 96 Room Air Resident Activity Tracking Resident Involvement: Resident Care Provided Care Provided: Adult Hospital Medicine
--- NOTE | 2024-02-19 18:01 | Billing Data ---
Date of Service February 19, 2024 Coding Level of Care Code 81636 SUB INP/OBS CARE
--- NOTE | 2024-02-20 07:06 | Hospitalist Progress Note ---
Date of Service February 20, 2024 Assessment & Plan (1) Left pontine CVA: Plan: seen on CT head and MRI brain, thrombolyzed with TPA (TNKase) on 01/29/24 - Weakness improving with OT/PT - OT/PT/ Speech following: awaiting Rehab placement - DAPT 3 weeks then continue with Plavix only, per neurology recommendation - Eliquis 2.5mg BID for DVT prophylaxis (2) Hypertensive emergency: Plan: resolved, BP within normal limits as of present - continue monitoring vital signs - continue encouraging PO fluids and meals - plasma metanephrines unremarkable (3) Dizziness: Plan: resolved, able to maintain balance in sitting without assistance or complaints of dizziness. BP's have been normal-low, otherwise asymptomatic. - Continue to hold Amlodipine, HCTZ and Losartan - continue encouraging PO fluids and meals (4) Hyperlipidemia: Plan: chronic, LDL 192 on 01/30/24 - continue Atorvastatin 40mg qHS Plan Plan to d/c to [facility] acute rehab pending [place] approval. DVT PROPHYLAXIS- Eliquis 2.5 mg BID DISPO:OT/PT : Rec acute rehab placement; Case Mgmt continues working on Medicaid approval and placement. Diet: Heart healthy Full Code Admission and Anticipated Discharge Date Admission Date: January 29, 2024 Supervising Physician Co-Signing Physician Notes I personally examined the patient and verified all de león points of history and exam, discussed case, and agree with decision making with Dr Slade Working with PT when I see him. Fairly steady on his feet, may be slightly better gross motor with his right arm, still essentially no fine motor. No new complaints, still awaiting insurance coverage so that he can go to rehab. Vitals noted, in general he is awake and alert pleasant no distress. Right arm still with probably somewhat better gross motor and almost no fine motor, but his ambulation is slow and steady with a modified walker. Breathing unlabored no accessory muscle use good effort. Skin without rashes pallor or icterus. Pontine strokeetiology unclear. Med management/secondary risk reduction/PT and OT eval and treat. ongoing vigilance. Ideally to rehabbut still pending insurance approval, fortunately is at least showing progress with therapy while here in the hospital. otherwise as above Subjective Patient was seen and evaluated at bedside, was resting comfortably in bed in no apparent distress. Endorses he feels well this morning, has been out of bed and walking with his walker to the bathroom without assistance. States he has not had a BM in a couple days, but urinating without issue. Still does not desire laxative. Continues trying to move his right arm and leg throughout the day to encourage movement and strength, range of motion and vigor with movement continue to improve. R hand food service lead strength continues to improve, still minimal movement of R wrist and R foot dorsiflexion but has been improving with inversion and eversion. Endorses he has been eating and drinking well. Demonstrated standing up for me, no shakiness or unsteadiness observed, no dizziness or lightheadedness noted. Aware we are still awaiting placement pending insurance approval. Denies any headache, neck pain, visual changes, cough, SOB, nausea, vomiting, chest pain, abdominal pain, LE swelling/pain. Review of Systems Review of Systems: per HPI Physical Exam Physical Exam: Constitutional: A&Ox3, appears stated age, in no acute distress HEENT: anicteric sclerae, EOM intact Cardiovascular: RRR, +s1/s2, no m/r/g Respiratory: clear to auscultation b/l, good equal air entry b/l, no wheeze/rales/rhonchi GI: abdomen soft, +BS, no tenderness to palpation Neuro: no facial droop, speech intact, sensation grossly intact; Right extremity motor deficits (see below); CN II-XII appearing grossly intact MSK: - Right 4/5 strength in R elbow flexion and extension; 1/5 strength in R wrist extension and flexion, 4/5 strength food service lead; 2/5 strength in RLE dorsiflexion, 3/5 strength in RLE inversion and eversion, 5/5 strength in RLE plantarflexion - Left 5/5 strength in LUE, 5/5 strength in LLE dorsiflexion, 5/5 strength in LLE plantarflexion Results & Data Results & Data Vital Signs (Past 12 Hours) Vital Signs Temp Pulse Resp BP Pulse Ox O2 Del Method 02/19/24 22:46 36.7 C 71 16 108/68 99 Room Air Resident Activity Tracking Resident Involvement: Resident Care Provided Care Provided: Adult [facility] Medicine
--- NOTE | 2024-02-20 12:47 | Billing Data ---
Date of Service February 20, 2024 Coding Level of Care Code 04346 SUB INP/OBS CARE
--- NOTE | 2024-02-21 07:02 | Hospitalist Progress Note ---
Date of Service February 21, 2024 Assessment & Plan (1) Left pontine CVA: Plan: seen on CT head and MRI brain, thrombolyzed with TPA (TNKase) on 01/29/24 - Weakness improving with OT/PT - OT/PT/ Speech following: awaiting Rehab placement - DAPT 3 weeks then continue with Plavix only, per neurology recommendation - Eliquis 2.5mg BID for DVT prophylaxis (2) Hypertensive emergency: Plan: resolved, BP within normal limits as of present - continue monitoring vital signs - continue encouraging PO fluids and meals - plasma metanephrines unremarkable (3) Dizziness: Plan: resolved, able to maintain balance in sitting without assistance or complaints of dizziness. BP's have been normal-low, otherwise asymptomatic. - Continue to hold Amlodipine, HCTZ and Losartan - continue encouraging PO fluids and meals (4) Hyperlipidemia: Plan: chronic, LDL 192 on 01/30/24 - continue Atorvastatin 40mg qHS Plan Plan to d/c to [facility] acute rehab pending [place] approval. DVT PROPHYLAXIS- Eliquis 2.5 mg BID DISPO:OT/PT : Rec acute rehab placement; Case Mgmt continues working on Medicaid approval and placement. Diet: Heart healthy Full Code Admission and Anticipated Discharge Date Admission Date: January 29, 2024 Supervising Physician Co-Signing Physician Notes I personally examined the patient and verified all de león points of history and exam, discussed case, and agree with decision making with Dr Slade Standing up in the room doing PT exercises on his own whenever I see himhe shows me happily that he is starting to move his right arm better and has a tiny bit of fine motor in his hand. Vitals noted, in general he is awake and alert pleasant no distress. 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 Breathing unlabored no accessory muscle use good effort. Skin without rashes pallor or icterus. Pontine strokeetiology unclear. Med management/secondary risk reduction/PT and OT eval and treat. ongoing vigilance. Ideally to rehabbut still pending insurance approval, fortunately is at least showing progress with therapy while here in the hospital. paperwork completed for insurance coverage today otherwise as above Subjective Patient was seen and evaluated at bedside, was resting comfortably in bed in no apparent distress. Endorses he feels well this morning, has been out of bed and walking with his walker to the bathroom without assistance. States he has not had a BM in a couple days, but urinating without issue. Still does not desire laxative. Continues trying to move his right arm and leg throughout the day to encourage movement and strength, range of motion and vigor with movement continue to improve. R hand solar installation foreman strength status quo, still minimal movement of R wrist. R foot dorsiflexion, inversion and eversion improving. Endorses he has been eating and drinking well. Demonstrated standing up for me, no shakiness or unsteadiness observed, no dizziness or lightheadedness noted. Aware we are still awaiting placement pending insurance approval. Denies any headache, neck pain, visual changes, cough, SOB, nausea, vomiting, chest pain, abdominal pain, LE swelling/pain. Review of Systems Review of Systems: per HPI Physical Exam Physical Exam: Constitutional: A&Ox3, appears stated age, in no acute distress HEENT: anicteric sclerae, EOM intact Cardiovascular: RRR, +s1/s2, no m/r/g Respiratory: clear to auscultation b/l, good equal air entry b/l, no wheeze/rales/rhonchi GI: abdomen soft, +BS, no tenderness to palpation Neuro: no facial droop, speech intact, sensation grossly intact; Right extremity motor deficits (see below); CN II-XII appearing grossly intact MSK: - Right 4/5 strength in R elbow flexion and extension; 1/5 strength in R wrist extension and flexion, 4/5 strength solar installation foreman; 4/5 strength in RLE dorsiflexion but minimal ROM, 4/5 strength in RLE inversion and eversion, 5/5 strength in RLE plantarflexion - Left 5/5 strength in LUE, 5/5 strength in LLE dorsiflexion, 5/5 strength in LLE plantarflexion Results & Data Results & Data Vital Signs (Past 12 Hours) Vital Signs Temp Pulse Resp BP Pulse Ox O2 Del Method 02/20/24 22:05 36.7 C 73 18 139/85 98 Room Air Resident Activity Tracking Resident Involvement: Resident Care Provided Care Provided: Adult Hospital Medicine
--- NOTE | 2024-02-21 16:35 | Billing Data ---
Date of Service February 21, 2024 Coding Level of Care Code 31586 SUB INP/OBS CARE
--- NOTE | 2024-02-22 06:49 | Hospitalist Progress Note ---
Date of Service February 22, 2024 Assessment & Plan (1) Left pontine CVA: Plan: seen on CT head and MRI brain, thrombolyzed with TPA (TNKase) on 01/29/24 - Weakness improving with OT/PT - OT/PT/ Speech following: awaiting Rehab placement - DAPT 3 weeks then continue with Plavix only, per neurology recommendation - Eliquis 2.5mg BID for DVT prophylaxis (2) Hypertensive emergency: Plan: resolved, BP within normal limits as of present - continue monitoring vital signs - continue encouraging PO fluids and meals - plasma metanephrines unremarkable (3) Dizziness: Plan: resolved, able to maintain balance in sitting without assistance or complaints of dizziness. BP's have been normal-low, otherwise asymptomatic. - Continue to hold Amlodipine, HCTZ and Losartan - continue encouraging PO fluids and meals (4) Hyperlipidemia: Plan: chronic, LDL 192 on 01/30/24 - continue Atorvastatin 40mg qHS Plan Plan to d/c to [facility] [place]. DVT PROPHYLAXIS- Eliquis 2.5 mg BID DISPO:OT/PT : Rec acute rehab placement; Case Mgmt continues working on Medicaid approval and placement. Diet: Heart healthy Full Code Admission and Anticipated Discharge Date Admission Date: January 29, 2024 Supervising Physician Co-Signing Physician Notes I personally examined the patient and verified all de león points of history and exam, discussed case, and agree with decision making with Dr Slade feeling a little better. probably moving arm a little better. Vitals noted, in general he is awake and alert pleasant no distress. Right arm showing a bit more for both gross and fine motor. Breathing unlabored no accessory muscle use good effort. Skin without rashes pallor or icterus. Pontine strokeetiology unclear. Med management/secondary risk reduction/PT and OT eval and treat. ongoing vigilance. Ideally to rehabbut still pending insurance approval, fortunately is at least showing progress with therapy while here in the hospital. still awaiting insurance coverage. otherwise as above Subjective Patient was seen and evaluated at bedside, was resting comfortably in bed in no apparent distress. Endorses he feels well this morning, has been out of bed and walking with his walker to the bathroom without assistance. States he had a bowel movement day prior 02/21/24, slightly dry and hard but patient still declines laxative. States he will try drinking more fluids. Continues trying to move his right arm and leg throughout the day to encourage movement and strength, range of motion and vigor with movement improving slowly. R hand template layout worker strength status quo, still minimal movement of R wrist. R foot dorsiflexion, inversion and eversion improving. Endorses he has been eating and drinking well. Aware we are still awaiting placement pending insurance approval. Denies any headache, neck pain, visual changes, cough, SOB, nausea, vomiting, chest pain, abdominal pain, LE swelling/pain. Review of Systems 2 Review of Systems: per HPI Physical Exam Physical Exam: Constitutional: A&Ox3, appears stated age, in no acute distress HEENT: anicteric sclerae, EOM intact Cardiovascular: RRR, +s1/s2, no m/r/g Respiratory: clear to auscultation b/l, good equal air entry b/l, no wheeze/rales/rhonchi GI: abdomen soft, +BS, no tenderness to palpation Neuro: no facial droop, speech intact, sensation grossly intact; Right extremity motor deficits (see below); CN II-XII appearing grossly intact MSK: - Right 4/5 strength in R elbow flexion and extension; 1/5 strength in R wrist extension and flexion, 4/5 strength template layout worker; 4/5 strength in RLE dorsiflexion but minimal ROM, 4/5 strength in RLE inversion and eversion, 5/5 strength in RLE plantarflexion - Left 5/5 strength in LUE, 5/5 strength in LLE dorsiflexion, 5/5 strength in LLE plantarflexion Results & Data Results & Data Vital Signs (Past 12 Hours) Vital Signs Temp Pulse Resp BP Pulse Ox O2 Del Method 02/21/24 22:53 36.5 C 63 16 127/78 95 Room Air Resident Activity Tracking Resident Involvement: Resident Care Provided Care Provided: Adult Hospital Medicine
--- NOTE | 2024-02-22 17:00 | Billing Data ---
Date of Service February 22, 2024 Coding Level of Care Code 28771 SUB INP/OBS CARE
--- NOTE | 2024-02-23 06:55 | Hospitalist Progress Note ---
Date of Service February 23, 2024 Assessment & Plan (1) Left pontine CVA: Plan: seen on CT head and MRI brain, thrombolyzed with TPA (TNKase) on 01/29/24 - Weakness improving with OT/PT - OT/PT/ Speech following: awaiting Rehab placement - DAPT 3 weeks then continue with Plavix only, per neurology recommendation - Eliquis 2.5mg BID for DVT prophylaxis (2) Hypertensive emergency: Plan: resolved, BP within normal limits as of present - continue monitoring vital signs - continue encouraging PO fluids and meals - plasma metanephrines unremarkable (3) Dizziness: Plan: resolved, able to maintain balance in sitting without assistance or complaints of dizziness. BP's have been normal-low, otherwise asymptomatic. - Continue to hold Amlodipine, HCTZ and Losartan - continue encouraging PO fluids and meals (4) Hyperlipidemia: Plan: chronic, LDL 192 on 01/30/24 - continue Atorvastatin 40mg qHS Plan Plan to d/c to [facility] [place]. DVT PROPHYLAXIS- Eliquis 2.5 mg BID DISPO:OT/PT : Rec acute rehab placement; Case Mgmt continues working on Medicaid approval and placement. Diet: Heart healthy Full Code Admission and Anticipated Discharge Date Admission Date: January 29, 2024 Supervising Physician Co-Signing Physician Notes I personally examined the patient and verified all de león points of history and exam, discussed case, and agree with decision making with Dr Slade resting comfortably. Vitals noted, in general he is sleeping comfortably no distress. Breathing unlabored no accessory muscle use. Pontine strokeetiology unclear. Med management/secondary risk reduction, Continue PT and OT eval and treat. ongoing vigilance. Ideally to rehabbut still pending insurance approval, fortunately is at least showing progress with therapy while here in the hospital. still awaiting insurance coverage. otherwise as above Subjective Patient was seen and evaluated at bedside, was resting comfortably in bed in no apparent distress. Endorses he feels well this morning, has been out of bed and walking with his walker to the bathroom without assistance. States he had a bowel movement 2 days ago 02/21/24, states he will continue drinking more fluids. Generally eating well. Continues trying to move his right arm and leg throughout the day to encourage movement and strength, range of motion and vigor with movement improving slowly. R hand processing clerk strength improving, still minimal movement of R wrist. R foot dorsiflexion, inversion and eversion improving. Endorses he has been eating and drinking well. Aware we are still awaiting placement pending insurance approval. Denies any headache, neck pain, visual changes, cough, SOB, nausea, vomiting, chest pain, abdominal pain, LE swelling/pain. Review of Systems Review of Systems: per HPI Physical Exam Physical Exam: Constitutional: A&Ox3, appears stated age, in no acute distress HEENT: anicteric sclerae, EOM intact Cardiovascular: RRR, +s1/s2, no m/r/g Respiratory: clear to auscultation b/l, good equal air entry b/l, no wheeze/rales/rhonchi GI: abdomen soft, +BS, no tenderness to palpation Neuro: no facial droop, speech intact, sensation grossly intact; Right extremity motor deficits (see below); CN II-XII appearing grossly intact MSK: - Right 4/5 strength in R elbow flexion and extension; 1/5 strength in R wrist extension and flexion, 4/5 strength processing clerk; 4/5 strength in RLE dorsiflexion but minimal ROM, 4/5 strength in RLE inversion and eversion, 5/5 strength in RLE plantarflexion - Left 5/5 strength in LUE, 5/5 strength in LLE dorsiflexion, 5/5 strength in LLE plantarflexion Results & Data Results & Data Vital Signs (Past 12 Hours) Vital Signs Temp Pulse Resp BP Pulse Ox O2 Del Method 02/22/24 19:45 36.6 C 64 16 140/94 95 Room Air Resident Activity Tracking Resident Involvement: Resident Care Provided Care Provided: Adult Hospital Medicine
--- NOTE | 2024-02-23 16:37 | Billing Data ---
Date of Service February 23, 2024 Coding Level of Care Code 96995 SUB INP/OBS CARE
--- NOTE | 2024-02-24 07:04 | Hospitalist Progress Note ---
Date of Service February 24, 2024 Assessment & Plan (1) Left pontine CVA: Plan: - seen on CT head and MRI brain, thrombolyzed with TPA (TNKase) on 01/29/24 - Weakness improving with OT/PT, sensation normal - DAPT 3 weeks then continue with Plavix only, per neurology recommendation - Eliquis 2.5mg BID for DVT prophylaxis - OT/PT/ST following: awaiting Rehab placement (2) Hypertensive emergency: Plan: - resolved, BP within normal limits as of present - continue monitoring vital signs - continue encouraging PO fluids and meals - plasma metanephrines unremarkable (3) Dizziness: Plan: - resolved, able to maintain balance in sitting without assistance or complaints of dizziness. - BP's have been normal-low, otherwise asymptomatic. - Continue to hold Amlodipine, HCTZ and Losartan - continue encouraging PO fluids and meals (4) Hyperlipidemia: Plan: - chronic, LDL 192 on 01/30/24 - continue Atorvastatin 40mg qHS Plan Plan to d/c to [facility] [place]. DVT PROPHYLAXIS- Eliquis 2.5 mg BID DISPO:OT/PT : Rec acute rehab placement; Case Mgmt continues working on Medicaid approval and placement. Diet: Heart healthy Full Code Admission and Anticipated Discharge Date Admission Date: January 29, 2024 Supervising Physician Co-Signing Physician Notes I personally examined the patient and verified all de león points of history and exam, discussed case, and agree with decision making with Dr Sanchez resting comfortably. Vitals noted, in general he is sleeping appears in no distress. Breathing unlabored Pontine strokeetiology unclear. Med management/secondary risk reduction, continue PT and OT eval and treat. ongoing vigilance. Ideally to rehabbut still pending insurance approval, fortunately is at least showing progress with therapy while here in the hospital. still awaiting insurance coverage. otherwise as above Subjective Patient reports doing well today. Feels his right side is improving. Able to eat normally. Reports walking ok w aid of walker. Normal bowel & bladder fxn. Denies AGUILERA, dizziness or lightheadedness, SOB, CP, n/v/c/d, body aches. Aware he is pending placement at rehab facility. Review of Systems Review of Systems: per HPI Physical Exam Physical Exam: Gen: NAD, WD/WN HEENT: NCAT CV: RRR, no m/r/g, S1/S2 normal Resp: CTAB, symmetrical chest rise, breathing non-labored Abd: Soft, NT/ND Skin: Warm, dry, pink, no rashes or lesions Neuro: AOx3, CN II-XII grossly intact - EOMI, no facial droop, nl sensation, no dysarthria RUE str 4/5 at elbow, 1/5 at wrist, no hand top collar baster RLE str 4/5 at knees, 1/5 at ankle (plantar flexion/dorsiflexion) Str 5/5 throughout left. Results & Data Results & Data Vital Signs (Past 12 Hours) Vital Signs Temp Pulse Resp BP Pulse Ox O2 Del Method 02/23/24 23:00 37.0 C 70 18 134/78 97 Room Air Resident Activity Tracking Resident Involvement: Resident Care Provided Care Provided: Adult Hospital Medicine
--- NOTE | 2024-02-24 15:00 | Billing Data ---
Date of Service February 24, 2024 Coding Level of Care Code 10454 SUB INP/OBS CARE
--- NOTE | 2024-02-25 07:24 | Hospitalist Progress Note ---
Date of Service February 25, 2024 Assessment & Plan (1) Left pontine CVA: Plan: - seen on CT head and MRI brain, thrombolyzed with TPA (TNKase) on 01/29/24 - Weakness improving with OT/PT, sensation normal - DAPT 3 weeks then continue with Plavix only, per neurology recommendation - Eliquis 2.5mg BID for DVT prophylaxis - OT/PT/ST following: awaiting Rehab placement (2) Hypertensive emergency: Plan: - resolved, BP within normal limits as of present - continue monitoring vital signs - continue encouraging PO fluids and meals - plasma metanephrines unremarkable (3) Dizziness: Plan: - Resolved, able to maintain balance in sitting without assistance or complaints of dizziness. - BP's have been normal-low, otherwise asymptomatic. - Continue to hold Amlodipine, HCTZ and Losartan - continue encouraging PO fluids and meals (4) Hyperlipidemia: Plan: - chronic, LDL 192 on 01/30/24 - continue Atorvastatin 40mg qHS (5) Epistaxis: Plan: - pt reports several episodes of prolonged nosebleeds over the past few days - new problem since hospital admission, maybe d/t added blood thinners - no packing required, no gross blood noted by nursing staff - coag studies on 01/28 wnl, VSS - encouraged pt to hydrate, will continue to monitor Plan Plan to d/c to [facility] [place]. DVT PROPHYLAXIS- Eliquis 2.5 mg BID DISPO: OT/PT recc acute rehab placement; Case Mgmt continues working on Medicaid approval and placement. Diet: Heart healthy Full Code Admission and Anticipated Discharge Date Admission Date: January 29, 2024 Supervising Physician Co-Signing Physician Notes I personally examined the patient and verified all de león points of history and exam, discussed case, and agree with decision making with Dr Sanchez this morning feeling reasonably well, getting around about the same, may be slightly better, right arm continues to make slow progress; called to revisit this afternoon as he was having left eye burning and tingling type painon fu rther direct questioning this has actually been happening nonstop (with some waxing and waning in intensity) since his stroke about a month ago but he had not mentioned it until today. Vitals noted, in general he is awake and alert pleasant no distress. HEENT normocephalic atraumatic mucous membranes moist. Breathing unlabored no accessory muscle use good effort. Neuro shows cranial nerves II through XII be grossly intact extraocular motion intact with good pupil response to light, his right arm has fairly diminished gross motor distal worse than proximal, but progressing, he has about 12 out of 5 emergency medical technician/driver strength which is better, still a lot of difficulty with coordination and almost no fine motor. Gait is unsteady but he is able to get up under his own power. Pontine strokeetiology unclear. Med management/secondary risk reduction, continue PT and OT eval and treat. ongoing vigilance. Ideally to rehabbut still pending insurance approval, fortunately is at least showing progress with therapy while here in the hospital. still awaiting insurance coverage. 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 Would avoid triptans for abortive therapy with him given risk of vasoconstriction. otherwise as above Subjective Patient is concerned about having nosebleeds. Says he's had several during this admission, never had them before, and last night's was especially prolonged ("all night"). Asked if air is too dry or he needs to drink more water. Reports eating normally, ambulating w aid of walker, normal bowel & bladder fxn. Denies AGUILERA, dizziness or lightheadedness, SOB, CP, n/v/c/d, body aches. Feels proud of progress in moving RUE. Aware he is pending placement at rehab facility. Review of Systems Review of Systems: per HPI Physical Exam Physical Exam: Gen: NAD, WD/WN HEENT: NCAT CV: RRR, no m/r/g, S1/S2 normal Resp: CTAB, symmetrical chest rise, breathing non-labored Abd: Soft, NT/ND Skin: Warm, dry, pink, no rashes or lesions Neuro: AOx3, CN II-XII grossly intact - EOMI, no facial droop, nl sensation, no dysarthria RUE str 4/5 at elbow, 1/5 at wrist, no hand emergency medical technician/driver RLE str 4/5 at knees, 1/5 at ankle (plantar flexion/dorsiflexion) Str 5/5 throughout left. Results & Data Results & Data Vital Signs (Past 12 Hours) Vital Signs Temp Pulse Resp BP Pulse Ox O2 Del Method 02/24/24 19:10 36.4 C L 84 18 159/94 H 99 Room Air 02/24/24 15:11 36.8 C 75 18 115/72 98 Room Air 02/24/24 07:44 36.8 C 66 16 113/75 97 Room Air Resident Activity Tracking Resident Involvement: Resident Care Provided Care Provided: Adult Hospital Medicine
--- NOTE | 2024-02-25 17:28 | Billing Data ---
Date of Service February 25, 2024 Coding Level of Care Code 34333 SUB INP/OBS CARE
--- NOTE | 2024-02-26 07:30 | Hospitalist Progress Note ---
Date of Service February 26, 2024 Assessment & Plan (1) Left pontine CVA: Plan: - Seen on CT head and MRI brain, thrombolyzed with TPA (TNKase) on 01/29/24 Right sided strength deficit w/ left facial numbness Deficits improving - Neurology consultation: DAPT 3 weeks then continue with Plavix only - Eliquis 2.5mg BID for DVT prophylaxis - OT/PT/ST following: awaiting Rehab placement Weakness improving w/ OT and PT Pending Medicare authorization (2) Hypertensive emergency: Plan: - Resolved, BP within normal/low - Plasma metanephrines unremarkable - No active antihypertensives Noted to have chronic hypertension outpatient Patient states he is not on medications outpatient (3) Dizziness: Plan: - Resolved, ambulating w/o symptoms - Amlodipine, HCTZ and Losartan on hold (4) Hyperlipidemia: Plan: - Chronic, LDL 192 01/30/24 Patient states he is not on medications outpatient - Continue Atorvastatin 40mg qHS - Follow LFTs (5) Epistaxis: Plan: - Recurrent epistaxis noted inpatient, not a chronic issue - Likely a/w TNKase, coag studies 01/28 wnl, hemodynamically stable - Has not required packing - Can consider nasal saline mist if ongoing Plan Plan to d/c to [facility] pending [place] approval. DVT Ppx - Eliquis 2.5 mg BID DISPO: OT/PT recc acute rehab placement; Case Mgmt continues working on Medicaid approval and placement. Diet: Heart healthy Full Code Admission and Anticipated Discharge Date Admission Date: January 29, 2024 Supervising Physician Co-Signing Physician Notes Attending Physician Supervision Note: I independently interviewed and examined the patient and verified the de león history and physical, reviewed labs and image studies and agree with findings and care plan noted above. Improving. Doing his exercises daily. AAOx3; Right arm - now able to flex his fingers but not completely, improving distal strength. Rt Leg - distal - now with intact strength in extensors but limited in flexor muscles. Acute pontine stroke - Right side weakness, vertigo Hypertensive emergency -s/p TNK. Echo - neg bubble study. Received DAPT for 3-weeks. Now on clopidogrel alone. Continue high dose statin. -PT/OT/ST including vestibular therapy to help with vertigo -Blood pressure running normal after holding antihypertensives (meds were started post stroke). Eliquis for DVT proph Needs rehab. Subjective Patient was resting comfortably in his bed upon presentation. Patient is noticing improvement today, he feels that he is regaining strength in his lower extremities and is not having as much difficulty with ambulation. He denies any CP or dyspnea. He has not experienced any headaches, lightheadedness, or vision changes. No recurrence of epistaxis. Physical Exam Physical Exam: Gen: NAD, WD/WN HEENT: NCAT CV: RRR, no m/r/g, S1/S2 normal Resp: CTAB, symmetrical chest rise, breathing non-labored Abd: Soft, NT/ND Skin: Warm, dry, pink, no rashes or lesions Neuro: AOx3, CN II-XII grossly intact - EOMI, no facial droop, nl sensation, no dysarthria - RUE: Psychological Examiner 3/5, Flexion/Extension 4/5 - LUE: Psychological Examiner, Flexion, and Extension 5/5 - RLE: Flexion and extension at knee 4/5 , Dorsiflexion and plantarflexion 3/5 - LLE: Flexion, extension, dorsiflexion, and plantarflexion 5/5 Results & Data Results & Data Vital Signs (Past 12 Hours) Vital Signs Temp Pulse Resp BP Pulse Ox O2 Del Method 02/26/24 04:00 36.6 C 86 18 117/66 96 Room Air 02/25/24 23:08 36.2 C L 68 18 131/86 97 Room Air Resident Activity Tracking Resident Involvement: Resident Care Provided Care Provided: Adult Hospital Medicine
[2024-02-26 08:16] LABS: BUN Creatinine Ratio 12.3 (10-20); Calcium 9.2 mg/dl (8.6-10.3); Creatinine Clr Calc Pharmacy 93.4 ml/min
[2024-02-26 13:36] LABS: Hematocrit (blood only) 39.8 % (42.0-52.0); Hemoglobin 13.4 g/dl (14.0-18.0); Mean Corpuscular Hemoglobin 29.7 pg (25.0-34.0); Mean Corpuscular Hgb Conc 33.7 g/dL (32.0-36.0); Mean Corpuscular Volume 88.2 fL (80.0-100.0); Mean Platelet Volume 11.3 fL (9.4-12.4); Platelet Count 279 K/uL (130-400); RDW Coefficient of Variation 12.7 % (11.5-14.5); Red Blood Count 4.51 M/uL (4.70-6.10)
--- NOTE | 2024-02-27 07:01 | Hospitalist Progress Note ---
Date of Service February 27, 2024 Assessment & Plan (1) Left pontine CVA: Plan: - Seen on CT head and MRI brain, thrombolyzed with TPA (TNKase) on 01/29/24 Right sided strength deficit w/ left facial numbness Deficits improving daily - Neurology consultation: S/p DAPT for 3 weeks, now Plavix only - Eliquis 2.5mg BID for DVT prophylaxis - OT/PT/ST following: awaiting Rehab placement Weakness improving w/ OT and PT Pending Medicare authorization (2) Hypertensive emergency: Plan: - Resolved, BP within normal/low - Plasma metanephrines unremarkable - No active antihypertensives Noted to have chronic hypertension outpatient Patient states he is not on medications outpatient (3) Dizziness: Plan: - Resolved, ambulating w/o symptoms - Amlodipine, HCTZ and Losartan on hold (4) Hyperlipidemia: Plan: - Chronic, LDL 192 01/30/24 Patient states he is not on medications outpatient - Continue Atorvastatin 40mg qHS - Follow LFTs (5) Epistaxis: Plan: - Recurrent epistaxis noted inpatient, not a chronic issue - Likely a/w TNKase, coag studies 01/28 wnl, hemodynamically stable - Has not required packing - Can consider nasal saline mist if ongoing Plan Plan to d/c to [facility] [place]. DVT Ppx - Eliquis 2.5 mg BID DISPO: OT/PT recc acute rehab placement; Case Mgmt continues working on Medicaid approval and placement. Diet: Heart healthy Full Code Admission and Anticipated Discharge Date Admission Date: January 29, 2024 Supervising Physician Co-Signing Physician Notes Attending Physician Supervision Note: I independently interviewed and examined the patient and verified the de león history and physical, reviewed labs and image studies and agree with findings and care plan noted above. Concerns this a.m. Doing his exercises daily. AAOx3; Right arm - now able to flex his fingers but not completely, improving distal strength. Rt Leg - distal - now with intact strength in extensors but limited in flexor muscles. Acute pontine stroke - Right side weakness, vertigo Hypertensive emergency -s/p TNK. Echo - neg bubble study. Received DAPT for 3-weeks. Now on clopidogrel alone. Continue high dose statin. -PT/OT/ST including vestibular therapy to help with vertigo -Blood pressure running normal except occasional spikes after holding antihypertensives (meds were started post stroke). Eliquis for DVT proph Needs rehab. Subjective Patient was resting comfortably in his bed upon presentation. Patient continues to engage in PT and is noticing improvement, though he is anxious to get home and out of the hospital. He denies difficulties with ambulation. He denies any CP or dyspnea. He has not experienced any headaches, lightheadedness, or vision changes. No recurrence of epistaxis. Patient notes that his left facial numbness has resolved, as of today. Review of Systems Review of Systems: per HPI Physical Exam Physical Exam: Gen: NAD, WD/WN HEENT: NCAT CV: RRR, no m/r/g, S1/S2 normal Resp: CTAB, symmetrical chest rise, breathing non-labored Abd: Soft, NT/ND Skin: Warm, dry, pink, no rashes or lesions Neuro: AOx3, CN II-XII grossly intact - EOMI, no facial droop, nl sensation, no dysarthria - RUE: Recovery Operator 3/5, Flexion/Extension 4/5 - LUE: Recovery Operator, Flexion, and Extension 5/5 - RLE: Flexion and extension at knee 4/5 , Dorsiflexion and plantarflexion 3/5 - LLE: Flexion, extension, dorsiflexion, and plantarflexion 5/5 Results & Data Results & Data Vital Signs (Past 12 Hours) Vital Signs Temp Pulse Resp BP Pulse Ox O2 Del Method 02/27/24 00:05 36.5 C 63 16 128/73 96 Room Air 02/26/24 23:45 36.5 C 58 L 18 133/91 97 Room Air Resident Activity Tracking Resident Involvement: Resident Care Provided Care Provided: Adult Hospital Medicine
[2024-02-27] MEDS ORDERED: hydrALAZINE HCL 20 MG/ML VIAL IV ONE (22:27)
[2024-02-27] MEDS: LORazepam 2 MG/1 ML VIAL IV STA (22:39)
--- NOTE | 2024-02-28 07:58 | Hospitalist Progress Note ---
Date of Service February 28, 2024 Assessment & Plan (1) Left pontine CVA: Plan: - Seen on CT head and MRI brain, thrombolyzed with TPA (TNKase) on 01/29/24 Right sided strength deficit w/ left facial numbness Deficits improving daily - Neurology consultation: S/p DAPT for 3 weeks, now Plavix only - Eliquis 2.5mg BID for DVT prophylaxis - OT/PT/ST following: awaiting Rehab placement Weakness improving w/ OT and PT Pending Medicare authorization (2) Hypertensive emergency: Plan: Did have some episodes of hypertension overnight related to anxiety/agitation as there was some verbal conflicts with overnight staff who expressed that he should go back to [place] for his care. BP normalized. Patient will not be with that nurse tonight - Plasma metanephrines unremarkable - No active antihypertensives Noted to have chronic hypertension outpatient Patient states he is not on medications outpatient (3) Dizziness: Plan: - Resolved, ambulating w/o symptoms (4) Hyperlipidemia: Plan: - Chronic, LDL 192 01/30/24 Patient states he is not on medications outpatient - Continue Atorvastatin 40mg qHS - Follow LFTs (5) Epistaxis: Plan: - Recurrent epistaxis noted inpatient, not a chronic issue. Likely a/w TNKase, coag studies 01/28 wnl, hemodynamically stable no recent bleeding Plan Plan to d/c to [facility] pending [place] approval. DVT Ppx - Eliquis 2.5 mg BID DISPO: OT/PT rec acute rehab placement; CM continues working on Medicaid approval and placement. Diet: Heart healthy Full Code Admission and Anticipated Discharge Date Admission Date: January 29, 2024 Supervising Physician Co-Signing Physician Notes Attending Physician Supervision Note: I independently interviewed and examined the patient and verified the de león history and physical, reviewed labs and image studies and agree with findings and care plan noted above. Sitting at the edge of bed and eating lunch. Doing his exercises daily. AAOx3; Right arm - now able to flex his fingers but not completely, improving distal strength. Rt Leg - distal - now with intact strength in extensors but limited in flexor muscles. Acute pontine stroke - Right side weakness, vertigo Hypertensive emergency -s/p TNK. Echo - neg bubble study. Received DAPT for 3-weeks. Now on clopidogrel alone. Continue high dose statin. -PT/OT/ST including vestibular therapy to help with vertigo -Blood pressure running normal except occasional spikes after holding antihypertensives (meds were started post stroke). Eliquis for DVT proph Needs rehab. Subjective Patient seen at bedside today. Had a rough night and is feeling tired. Did a lot of work yesterday. Review of Systems Review of Systems: per HPI Physical Exam Physical Exam: Gen: well appearing patient in NAD HEENT: AT NC MMM Resp: no increased work of breathing CV: clinically well perfused Abd: non-distended MSK: no obvious deformities Skin: no rashes or bruising Neuro: alert and oriented Psych: appropriate mood and affect Results & Data Results & Data Vital Signs (Past 12 Hours) Vital Signs Temp Pulse Resp BP Pulse Ox O2 Del Method 02/28/24 07:28 36.4 C L 61 16 129/80 98 Room Air 02/28/24 00:00 141/88 H 02/27/24 23:34 167/115 H 02/27/24 23:16 180/125 H 02/27/24 21:49 36.6 C 79 18 171/120 H 98 Room Air 02/27/24 20:27 Room Air Resident Activity Tracking Resident Involvement: Resident Care Provided Care Provided: Adult Hospital Medicine
[2024-02-29 04:36] LABS: Hematocrit (blood only) 40.1 % (42.0-52.0); Hemoglobin 13.3 g/dl (14.0-18.0); Mean Corpuscular Hgb Conc 33.2 g/dL (32.0-36.0); Mean Corpuscular Volume 87.6 fL (80.0-100.0); Mean Platelet Volume 10.7 fL (9.4-12.4); Platelet Count 268 K/uL (130-400); RDW Coefficient of Variation 12.6 % (11.5-14.5); RDW Standard Deviation 40.6 fL (36.4-46.3); Red Blood Count 4.58 M/uL (4.70-6.10); White Blood Count 7.25 K/ul (4.8-10.8)
[2024-02-29 04:52] LABS: BUN Creatinine Ratio 14.4 (10-20); Calcium 9.3 mg/dl (8.6-10.3); Potassium 4.2 mmol/L (3.5-5.1)
--- NOTE | 2024-02-29 07:33 | Hospitalist Progress Note ---
Date of Service February 29, 2024 Assessment & Plan (1) Left pontine CVA: Plan: - Seen on CT head and MRI brain, thrombolyzed with TPA (TNKase) on 01/29/24 Right sided strength deficit w/ left facial numbness Deficits improving daily - Neurology consultation: S/p DAPT for 3 weeks, now Plavix only - Eliquis 2.5mg BID for DVT prophylaxis - OT/PT/ST following: awaiting Rehab placement Weakness improving w/ OT and PT Pending Medicare authorization (2) Hypertensive emergency: Plan: Did have some episodes of hypertension overnight (02/26) related to anxiety/agitation as there was some verbal conflicts with overnight staff who expressed that he should go back to [place] for his care. - Plasma metanephrines unremarkable - No active antihypertensives Noted to have chronic hypertension outpatient Patient states he is not on medications outpatient (3) Dizziness: Plan: - Resolved, ambulating w/o symptoms (4) Hyperlipidemia: Plan: - Chronic, LDL 192 01/30/24 Patient states he is not on medications outpatient - Continue Atorvastatin 40mg qHS - Follow LFTs (5) Epistaxis: Plan: - Recurrent epistaxis noted inpatient, not a chronic issue. Likely a/w TNKase, coag studies 01/28 wnl, hemodynamically stable no recent bleeding Plan Plan to d/c to [facility] pending [place] approval. No updates regarding insurance/rehab placement. DVT Ppx - Eliquis 2.5 mg BID DISPO: OT/PT rec acute rehab placement; CM continues working on Medicaid approval and placement. Diet: Heart healthy Full Code Admission and Anticipated Discharge Date Admission Date: January 29, 2024 Supervising Physician Co-Signing Physician Notes Attending Physician Supervision Note: I independently interviewed and examined the patient and verified the de león history and physical, reviewed labs and image studies and agree with findings and care plan noted above. No new concerns. Comfortable in bed. Doing his exercises daily. AAOx3; Right arm - now able to flex his fingers but not completely, improving distal strength. Rt Leg - distal - now with intact strength in extensors but limited in flexor muscles. Now able to move his toes. Acute pontine stroke - Right side weakness, vertigo Hypertensive emergency -s/p TNK. Echo - neg bubble study. Received DAPT for 3-weeks. Now on clopidogrel alone. Continue high dose statin. -PT/OT/ST including vestibular therapy to help with vertigo -Blood pressure running normal except occasional spikes after holding antihypertensives (meds were started post stroke). Eliquis for DVT proph Needs rehab. Subjective Patient seen at bedside. No acute events reported overnight. Patient sitting at bedside eating snack at time of encounter. Denies any pain or concerns at present. Review of Systems Review of Systems: As per above Physical Exam Constitutional: WD/WN, vitals as above Eyes: + anicteric sclerae; no conjunctival abn ormality ENMT: Ears: no external ear abnormality Nose: no external nose abnormality Moist mucous membranes Respiratory: Normal respiratory efforts. No accessory muscle use. Cardiovascular: Limbs well perfused. Normal heart rate. Skin: no rashes, warm and dry Psychiatric: A+Ox3, euthymic affect Results & Data Results & Data Vital Signs (Past 12 Hours) Vital Signs Temp Pulse Resp BP Pulse Ox O2 Del Method 02/28/24 19:35 36.7 C 68 18 155/95 H 96 Room Air Resident Activity Tracking Resident Involvement: Resident Care Provided Care Provided: Adult Hospital Medicine
--- NOTE | 2024-03-01 08:19 | Hospitalist Progress Note ---
Date of Service March 01, 2024 Assessment & Plan (1) Left pontine CVA: Plan: - Seen on CT head and MRI brain, thrombolyzed with TPA (TNKase) on 01/29/24 Right sided strength deficit w/ left facial numbness Deficits improving daily - Neurology consultation: S/p DAPT for 3 weeks, now Plavix only - Eliquis 2.5mg BID for DVT prophylaxis - OT/PT/ST following: awaiting Rehab placement Weakness improving w/ OT and PT Pending Medicare authorization (2) Hypertensive emergency: Plan: Did have some episodes of hypertension overnight (02/26) related to anxiety/agitation as there was some verbal conflicts with overnight staff who expressed that he should go back to [place] for his care. - Plasma metanephrines unremarkable - No active antihypertensives Noted to have chronic hypertension outpatient Patient states he is not on medications outpatient (3) Dizziness: Plan: - Resolved, ambulating w/o symptoms (4) Hyperlipidemia: Plan: - Chronic, LDL 192 01/30/24 Patient states he is not on medications outpatient - Continue Atorvastatin 40mg qHS - Follow LFTs (5) Epistaxis: Plan: - Recurrent epistaxis noted inpatient, not a chronic issue. Likely a/w TNKase, coag studies 01/28 wnl, hemodynamically stable no recent bleeding Plan Plan to d/c to [facility] pending [place] approval. No updates regarding insurance/rehab placement. DVT Ppx - Eliquis 2.5 mg BID DISPO: OT/PT rec acute rehab placement; CM continues working on Medicaid approval and placement. Diet: Heart healthy Full Code Admission and Anticipated Discharge Date Admission Date: January 29, 2024 Supervising Physician Co-Signing Physician Notes Attending Physician Supervision Note: I independently interviewed and examined the patient and verified the de león history and physical, reviewed labs and image studies and agree with findings and care plan noted above. Continuing to do his exercises daily and participating in therapy. AAOx3; Right arm - now able to flex his fingers but not completely, improving distal strength. Rt Leg - distal - now with intact strength in extensors but limited in flexor muscles. Now able to move his toes. Acute pontine stroke - Right side weakness, vertigo Hypertensive emergency -s/p TNK. Echo - neg bubble study. Received DAPT for 3-weeks. Now on clopidogrel alone. Continue high dose statin. -PT/OT/ST including vestibular therapy to help with vertigo -Blood pressure running normal except occasional spikes after holding antihypertensives (meds were started post stroke). Eliquis for DVT proph Needs rehab. Subjective Patient seen and evaluated at bedside this morning. No acute events overnight. No current complaints. Review of Systems Review of Systems: reviewed, per HPI Physical Exam Physical Exam: Constitutional: well-appearing, no acute distress HEENT: NCAT, no conjunctival injection CV: regular rhythm, + murmur, extremities well-perfused, no LE edema Resp: CTABL, no wheezes/rales/rhonchi appreciated, no increased work of breathing GI: soft, nondistended, nontender, BS normoactive MSK: no gross deformities appreciated Skin: warm, dry, no rash appreciated Neuro: alert, oriented Results & Data Results & Data Vital Signs (Past 12 Hours) Vital Signs Temp Pulse Resp BP Pulse Ox O2 Del Method 03/01/24 07:15 36.9 C 60 16 121/79 96 Room Air Resident Activity Tracking Resident Involvement: Resident Care Provided Care Provided: Adult Hospital Medicine
--- NOTE | 2024-03-02 10:05 | Hospitalist Progress Note ---
Date of Service March 02, 2024 Assessment & Plan (1) Left pontine CVA: Plan: - Seen on CT head and MRI brain, thrombolyzed with TPA (TNKase) on 01/29/24 Right sided strength deficit w/ left facial numbness Deficits improving daily - Neurology consultation: S/p DAPT for 3 weeks, now Plavix only - Eliquis 2.5mg BID for DVT prophylaxis - OT/PT/ST following: awaiting Rehab placement Weakness improving w/ OT and PT Pending Medicare authorization (2) Hypertensive emergency: Plan: Did have some episodes of hypertension overnight (02/26) related to anxiety/agitation as there was some verbal conflicts with overnight staff who expressed that he should go back to [place] for his care. - Plasma metanephrines unremarkable - No active antihypertensives Noted to have chronic hypertension outpatient Patient states he is not on medications outpatient (3) Dizziness: Plan: - Resolved, ambulating w/o symptoms (4) Hyperlipidemia: Plan: - Chronic, LDL 192 01/30/24 Patient states he is not on medications outpatient - Continue Atorvastatin 40mg qHS - Follow LFTs (5) Epistaxis: Plan: - Recurrent epistaxis noted inpatient, not a chronic issue. Likely a/w TNKase, coag studies 01/28 wnl, hemodynamically stable no recent bleeding Plan Plan to d/c to [facility] pending [place] approval. No updates regarding insurance/rehab placement. DVT Ppx - Eliquis 2.5 mg BID DISPO: OT/PT rec acute rehab placement; CM continues working on Medicaid approval and placement. Diet: Heart healthy Full Code Admission and Anticipated Discharge Date Admission Date: January 29, 2024 Supervising Physician Co-Signing Physician Notes Attending Physician Supervision Note: I independently interviewed and examined the patient and verified the de león history and physical, reviewed labs and image studies and agree with findings and care plan noted above. Continuing to do his exercises daily and participating in therapy. Attempting to do dorsiflex the ankle and extend the wrist but that's taking a lot of effort. AAOx3; Right arm - now able to flex his fingers but not completely, improving distal strength. Rt Leg - distal - now with intact strength in extensors but limited in flexor muscles. Also, able to move his toes now. Acute pontine stroke - Right side weakness, vertigo Hypertensive emergency -s/p TNK. Echo - neg bubble study. Received DAPT for 3-weeks. Now on clopidogrel alone. Continue high dose statin. -PT/OT/ST including vestibular therapy to help with vertigo -Blood pressure running normal except occasional spikes after holding antihypertensives (meds were started post stroke). -Continue PT/OT Eliquis for DVT proph Needs rehab. Subjective Patient seen and evaluated at bedside this morning. No acute events overnight. No current complaints. Happy because some movement in his toes is returning. Review of Systems Review of Systems: reviewed, per HPI Physical Exam Physical Exam: Constitutional: well-appearing, no acute distress HEENT: NCAT, no conjunctival injection CV: regular rhythm, + murmur, extremities well-perfused, no LE edema Resp: CTABL, no wheezes/rales/rhonchi appreciated, no increased work of breathing GI: soft, nondistended, nontender, BS normoactive MSK: no gross deformities appreciated Skin: warm, dry, no rash appreciated Neuro: alert, oriented Results & Data Results & Data Vital Signs (Past 12 Hours) Vital Signs Temp Pulse Resp BP Pulse Ox O2 Del Method 03/02/24 07:50 36.6 C 61 16 132/84 95 Room Air Resident Activity Tracking Resident Involvement: Resident Care Provided Care Provided: Adult Hospital Medicine
[2024-03-03 06:20] LABS: Hematocrit (blood only) 42.3 % (42.0-52.0); Hemoglobin 13.9 g/dl (14.0-18.0); Mean Corpuscular Hemoglobin 28.6 pg (25.0-34.0); Mean Corpuscular Hgb Conc 32.9 g/dL (32.0-36.0); Mean Platelet Volume 10.7 fL (9.4-12.4); Platelet Count 296 K/uL (130-400); RDW Coefficient of Variation 12.6 % (11.5-14.5); RDW Standard Deviation 40.3 fL (36.4-46.3); Red Blood Count 4.86 M/uL (4.70-6.10); White Blood Count 8.43 K/ul (4.8-10.8)
[2024-03-03 06:39] LABS: BUN Creatinine Ratio 19.3 (10-20); Calcium 9.6 mg/dl (8.6-10.3); Potassium 3.9 mmol/L (3.5-5.1)
--- NOTE | 2024-03-03 11:15 | Hospitalist Progress Note ---
Date of Service March 03, 2024 Assessment & Plan (1) Left pontine CVA: Plan: - Seen on CT head and MRI brain, thrombolyzed with TPA (TNKase) on 01/29/24 Right sided strength deficit w/ left facial numbness Deficits improving daily - Neurology consultation: S/p DAPT for 3 weeks, now Plavix only - Eliquis 2.5mg BID for DVT prophylaxis - OT/PT/ST following: awaiting Rehab placement Weakness improving w/ OT and PT Pending Medicare authorization (2) Hypertensive emergency: Plan: Did have some episodes of hypertension overnight (02/26) related to anxiety/agitation as there was some verbal conflicts with overnight staff who expressed that he should go back to [place] for his care. - Plasma metanephrines unremarkable - No active antihypertensives Noted to have chronic hypertension outpatient Patient states he is not on medications outpatient (3) Dizziness: Plan: - Resolved, ambulating w/o symptoms (4) Hyperlipidemia: Plan: - Chronic, LDL 192 01/30/24 Patient states he is not on medications outpatient - Continue Atorvastatin 40mg qHS - Follow LFTs (5) Epistaxis: Plan: - Recurrent epistaxis noted inpatient, not a chronic issue. Likely a/w TNKase, coag studies 01/28 wnl, hemodynamically stable no recent bleeding Plan Plan to d/c to [facility] pending [place] approval. No updates regarding insurance/rehab placement. DVT Ppx - Eliquis 2.5 mg BID DISPO: OT/PT rec acute rehab placement; CM continues working on Medicaid approval and placement. Diet: Heart healthy Full Code Admission and Anticipated Discharge Date Admission Date: January 29, 2024 Supervising Physician Co-Signing Physician Notes Attending Physician Supervision Note: I independently interviewed and examined the patient and verified the de león history and physical, reviewed labs and image studies and agree with findings and care plan noted above. Continuing to do his exercises daily and participating in therapy. Attempting to do dorsiflex the ankle and extend the wrist but that's taking a lot of effort. No new concerns. AAOx3; Right arm - now able to flex his fingers but not completely, improving distal strength. Rt Leg - distal - now with intact strength in extensors but limited in flexor muscles. Also, able to move his toes now. Acute pontine stroke - Right side weakness, vertigo Hypertensive emergency -s/p TNK. Echo - neg bubble study. Received DAPT for 3-weeks. Now on clopidogrel alone. Continue high dose statin. -PT/OT/ST including vestibular therapy to help with vertigo -Blood pressure running normal without meds except occasional spikes. -Continue PT/OT Eliquis for DVT proph Needs rehab. Subjective Patient seen and evaluated at bedside this morning. No acute events overnight. Resting comfortably, no acute concerns at this time. Review of Systems Review of Systems: reviewed, per HPI Physical Exam Physical Exam: Constitutional: well-appearing, no acute distress HEENT: NCAT, no conjunctival injection CV: regular rhythm, + murmur, extremities well-perfused, no LE edema Resp: CTABL, no wheezes/rales/rhonchi appreciated, no increased work of breathing GI: soft, nondistended, nontender, BS normoactive MSK: no gross deformities appreciated Skin: warm, dry, no rash appreciated Neuro: alert, oriented Results & Data Results & Data Vital Signs (Past 12 Hours) Vital Signs Temp Pulse Resp BP Pulse Ox O2 Del Method 03/03/24 07:21 36.7 C 69 18 143/86 H 94 Room Air Resident Activity Tracking Resident Involvement: Resident Care Provided Care Provided: Adult Hospital Medicine
--- NOTE | 2024-03-03 21:40 | Hospitalist Progress Note ---
Date of Service March 03, 2024 Assessment & Plan (1) Left pontine CVA: Plan: SCC (2) Hypertensive emergency: Plan: Did have some episodes of hypertension overnight (02/26) related to anxiety/ agitation as there was some verbal conflicts with overnight staff who expressed that he should go back to [place] for his care. - Plasma metanephrines unremarkable - No active antihypertensives Noted to have chronic hypertension outpatient Patient states he is not on medications outpatient (3) Dizziness: Plan: - Resolved, ambulating w/o symptoms (4) Hyperlipidemia: Plan: - Chronic, LDL 192 01/30/24 Patient states he is not on medications outpatient - Continue Atorvastatin 40mg qHS - Follow LFTs (5) Epistaxis: Plan: - Recurrent epistaxis noted inpatient, not a chronic issue. Likely a/w TNKase, coag studies 01/28 wnl, hemodynamically stable no recent bleeding Plan Plan to d/c to [facility] pending [place] approval. No updates regarding insurance/rehab placement. DVT Ppx - Eliquis 2.5 mg BID DISPO: OT/PT rec acute rehab placement; CM continues working on Medicaid approval and placement. Diet: Heart healthy Full Code Admission and Anticipated Discharge Date Admission Date: January 29, 2024 Subjective Patient seen and evaluated at bedside this morning. No acute events overnight. Resting comfortably, no acute concerns at this time. Review of Systems Review of Systems: As per HPI Physical Exam Physical Exam: Constitutional: Well appearing, No acute distress, PILCCOD: Negative HEENT: Atraumatic, Normocephalic, No conjunctival injection CVS: S1 S2 no murmur, Regular Rhythm, no LE edema Respiratory: BL equal air entry with NVBS. No rhonchi, wheezes, or crackles. No increased work of breathing GI: Soft, Nondistended, Nontender, Normal Bowel sounds + MSK: No gross deformities noted Skin: Warm, Dry, No rashes Neuro: Alert, Oriented to TPP, No Focal deficit Psych: Mood and Affect congruent, Cooperative on exam Results & Data Results & Data Vital Signs (Past 12 Hours) Vital Signs Temp Pulse Resp BP Pulse Ox O2 Del Method 03/03/24 20:38 36.5 C 64 16 125/77 95 Room Air 03/03/24 14:25 37.0 C 83 16 113/76 96 Room Air
--- NOTE | 2024-03-04 07:35 | Hospitalist Progress Note ---
Date of Service March 04, 2024 Assessment & Plan (1) Left pontine CVA: Plan: - Seen on CT head and MRI brain, thrombolyzed with TPA (TNKase) on 01/29/24 Right sided strength deficit w/ left facial numbness Deficits improving daily - Neurology consultation: S/p DAPT for 3 weeks, now Plavix only - Eliquis 2.5mg BID for DVT prophylaxis - OT/PT/ST following: awaiting Rehab placement Weakness improving w/ OT and PT Pending Medicare authorization (2) Hypertensive emergency: Plan: Did have some episodes of hypertension overnight (02/26) related to anxiety/agitation as there was some verbal conflicts with overnight staff who expressed that he should go back to [place] for his care. - Plasma metanephrines unremarkable - No active antihypertensives Noted to have chronic hypertension outpatient Patient states he is not on medications outpatient (3) Dizziness: Plan: - Resolved, ambulating w/o symptoms (4) Hyperlipidemia: Plan: - Chronic, LDL 192 01/30/24 Patient states he is not on medications outpatient - Continue Atorvastatin 40mg qHS - Follow LFTs (5) Epistaxis: Plan: - Recurrent epistaxis noted inpatient, not a chronic issue. Likely a/w TNKase, coag studies 01/28 wnl, hemodynamically stable no recent bleeding Plan Avelino is a 49M w/o significant PMH who presented 01/29/24 for stroke like symptoms and was found to have a left pontine CVA, he has been admitted for evaluation and ongoing physical therapy pending rehabilitation placement. (1) Left pontine CVA: - Seen on CT head and MRI brain, thrombolyzed with TPA (TNKase) on 01/29/24 Right sided strength deficit w/ left facial numbness Deficits improving daily - Neurology consultation: S/p DAPT for 3 weeks, now Plavix only - Eliquis 2.5mg BID for DVT prophylaxis - OT/PT/ST following: awaiting Rehab placement Weakness improving w/ OT and PT Pending Medicare authorization for rehabilitation (2) Systolic Murmur, RUSB/LUSB - No aortic pathology noted on Echocardiogram 01/29 - Murmur not previously noted on physical examination Of note, patient sitting upright today, previous examinations supine - Patient remains asymptomatic - Repeat limited Echocardiogram (3) Hypertensive emergency: - HTN overnight (02/26) related to anxiety/agitation - Plasma metanephrines unremarkable - No active antihypertensives Noted to have chronic hypertension outpatient Patient states he is not on medications outpatient (4) Dizziness: - Resolved, ambulating w/o symptoms (5) Hyperlipidemia: - Chronic, LDL 192 01/30/24 Patient states he is not on medications outpatient - Continue Atorvastatin 40mg qHS - Follow LFTs (6) Epistaxis: - Resolved, likely a/w TNKase, no recurrence Plan Plan to d/c to [facility] pending [place] approval. DVT Ppx - Eliquis 2.5 mg BID DISPO: OT/PT rec acute rehab placement; CM continues working on Medicaid approval and placement. Diet: Heart healthy Full Code Admission and Anticipated Discharge Date Admission Date: January 29, 2024 Supervising Physician Co-Signing Physician Notes I personally examined the patient and verified all de león points of history and exam, discussed case, and agree with decision making with Dr Borrero Moving left side better walking betterstill with significant weakness. Vitals noted, in general he is awake and alert pleasant no distress. HEENT normocephalic atraumatic mucous membranes moist. Breathing unlabored no access ory muscle use good effort. Skin without rashes pallor or icterus. Neuro with ongoing right hand weakness although his gross motor and fine motor both seem to be improving some. No new deficits. Pontine strokeetiology not entirely clear. Secondary risk reduction. While I doubt his murmur today is anything other than a flow murmur, given that the etiology of his stroke is still somewhat up in the air, repeat in echocardiogram for any changes or other findings is not unreasonable. Continue PT/OT, hopefully getting to rehab soon. Subjective Patient resting comfortably in bed this AM, notes excitement that he is regaining movement of his index finger on his right hand. Denies new chest pain, dyspnea, headaches or vision changes. Notes that left facial numbness has not returned. Continues to work with PT on ambulation. Denies bowel/bladder changes. Notes occasional spasm of RUE since stroke. NAEON. Physical Exam Physical Exam: Gen: NAD, WD/WN HEENT: NCAT CV: RRR, normal S1/S2, 4/6 systolic murmur at RUSB/LUSB, no rubs or gallops Resp: CTAB, symmetrical chest rise, breathing non-labored Abd: Soft, NT/ND Skin: Warm, dry, pink, no rashes or lesions Neuro: AOx3, CN II-XII grossly intact - EOMI, no facial droop, nl sensation, no dysarthria - RUE: Pediatric Physician 4/5, Flexion/Extension 4/5 - LUE: Pediatric Physician, Flexion, and Extension 5/5 - RLE: Flexion and extension at knee 4/5 , Dorsiflexion and plantarflexion 4/5 - LLE: Flexion, extension, dorsiflexion, and plantarflexion 5/5 Results & Data Results & Data Vital Signs (Past 12 Hours) Vital Signs Temp Pulse Resp BP Pulse Ox O2 Del Method 03/04/24 07:11 36.5 C 67 16 111/70 96 Room Air 03/03/24 20:38 36.5 C 64 16 125/77 95 Room Air Resident Activity Tracking Resident Involvement: Resident Care Provided Care Provided: Adult Hospital Medicine
--- NOTE | 2024-03-04 18:37 | Billing Data ---
Date of Service March 04, 2024 Coding Level of Care Code 64529 SUB INP/OBS CARE
--- NOTE | 2024-03-05 06:32 | Hospitalist Progress Note ---
Date of Service March 05, 2024 Assessment & Plan (1) Left pontine CVA: (2) Hypertensive emergency: (3) Dizziness: (4) Hyperlipidemia: (5) Epistaxis: Plan Avelino is a 49M w/o significant PMH who presented 01/29/24 for stroke like symptoms and was found to have a left pontine CVA, he has been admitted for evaluation and ongoing physical therapy pending rehabilitation placement. (1) Left pontine CVA: - Seen on CT head and MRI brain, thrombolyzed with TPA (TNKase) on 01/29/24 Right sided strength deficit w/ left facial numbness Deficits improving daily - Neurology consultation: S/p DAPT for 3 weeks, now Plavix only - Eliquis 2.5mg BID for DVT prophylaxis - OT/PT/ST following: awaiting Rehab placement Weakness improving w/ OT and PT Pending Medicare authorization for rehabilitation (2) Systolic Murmur, RUSB/LUSB // HOCM - No aortic pathology noted on Echocardiogram 01/29 - Murmur not previously noted on physical examination; of note, previous exams were with patient supine but murmur noted with patient upright - Patient remains asymptomatic - Repeat TTE from today showing findings suggestive of HOCM - Rec outpatient follow up and monitoring (3) Hypertensive emergency: - HTN overnight (02/26) related to anxiety/agitation - Plasma metanephrines unremarkable - No active antihypertensives Noted to have chronic hypertension outpatient Patient states he is not on medications outpatient (4) Dizziness: - Resolved, ambulating w/o symptoms (5) Hyperlipidemia: - Chronic, LDL 192 01/30/24 Patient states he is not on medications outpatient - Continue Atorvastatin 40mg qHS (6) Epistaxis: - Resolved, likely a/w TNKase, no recurrence Plan Plan to d/c to [facility] pending [place] approval. DVT Ppx - Eliquis 2.5 mg BID DISPO: OT/PT rec acute rehab placement; CM continues working on Medicaid approval and placement. Diet: Heart healthy Full Code Admission and Anticipated Discharge Date Admission Date: January 29, 2024 Supervising Physician Co-Signing Physician Notes I personally examined the patient and verified all de león points of history and exam, discussed case, and agree with decision making with Dr Bearden continues to make progress no new problems today. Vitals noted, in general he is awake and alert pleasant no distress. HEENT normocephalic atraumatic mucous membranes moist. Breathing unlabored no accessory muscle use good effort. Skin without rashes pallor or icterus. Neuro with ongoing right hand weakness although his gross motor and fine motor both seem to be improving some. No new deficits. Pontine strokeetiology not entirely clear. Secondary risk reduction. Asymmetric septal hypertrophy noted - doubt could be culprit for stroke, will need f/u (literature suggests surgery will potentially be warranted over time- but not appearing acutely needed) - possibly would benefit from beta paulette. Continue PT/OT, hopefully getting to rehab soon. Subjective Patient resting comfortably in bed this AM. States he feels sad and frustrated and his limitations in mobility, but also somewhat excited that he can now move his right arm and digit easier than he could before. Denies new chest pain, dyspnea, headaches or vision changes. Notes that left facial numbness has not returned. Review of Systems Review of Systems: As per HPI. Physical Exam Physical Exam: Gen: NAD, WD/WN HEENT: NCAT CV: RRR, normal S1/S2, 4/6 systolic murmur at RUSB/LUSB, no rubs or gallops Resp: CTAB, symmetrical chest rise, breathing non-labored Abd: Soft, NT/ND Skin: Warm, dry, pink, no rashes or lesions Neuro: AOx3, CN II-XII grossly intact - EOMI, no facial droop, nl sensation, no dysarthria - RUE: Kiln Furniture Caster 4/5, Flexion/Extension 4/5 - LUE: Kiln Furniture Caster, Flexion, and Extension 5/5 - RLE: Flexion and extension at knee 4/5 , Dorsiflexion and plantarflexion 4/5 - LLE: Flexion, extension, dorsiflexion, and plantarflexion 5/5 Results & Data Results & Data Vital Signs (Past 12 Hours) Vital Signs Temp Pulse Resp BP Pulse Ox O2 Del Method 03/04/24 19:25 36.5 C 85 16 136/91 97 Room Air Resident Activity Tracking Resident Involvement: Resident Care Provided Care Provided: Adult Hospital Medicine
--- NOTE | 2024-03-05 09:11 | XCELERA ---
[id number]
[2024-03-05] MEDS: CLOPIDOGREL BISULFATE 75 MG TAB PO SCH (09:56)
[2024-03-05] MEDS: ATORVASTATIN 40 MG TAB PO SCH (09:56)
--- NOTE | 2024-03-05 14:43 | Billing Data ---
Date of Service March 05, 2024 Coding Level of Care Code 45850 SUB INP/OBS CARE
--- NOTE | 2024-03-06 07:57 | Hospitalist Progress Note ---
Date of Service March 06, 2024 Assessment & Plan (1) Left pontine CVA: (2) Hypertensive emergency: (3) Dizziness: (4) Hyperlipidemia: (5) Epistaxis: Plan Avelino is a 49M w/o significant PMH who presented 01/29/24 for stroke like symptoms and was found to have a left pontine CVA, he has been admitted for evaluation and ongoing physical therapy pending rehabilitation placement. (1) Left pontine CVA: - Seen on CT head and MRI brain, thrombolyzed with TPA (TNKase) on 01/29/24 Right sided strength deficit w/ left facial numbness Deficits improving daily - Neurology consultation: S/p DAPT for 3 weeks, now Plavix only - Eliquis 2.5mg BID for DVT prophylaxis - OT/PT/ST following: awaiting Rehab placement Weakness improving w/ OT and PT Pending Medicare authorization for rehabilitation (2) Systolic Murmur, RUSB/LUSB // HOCM - No aortic pathology noted on Echocardiogram 01/29 - Murmur not previously noted on physical examination; of note, previous exams were with patient supine but murmur noted with patient upright - Patient remains asymptomatic - Repeat TTE showing findings suggestive of HOCM; discussed this finding with patient - [facility] outpatient follow up and monitoring (3) Hypertensive emergency: - HTN overnight (02/26) related to anxiety/agitation - Plasma metanephrines unremarkable - No active antihypertensives Noted to have chronic hypertension outpatient Patient states he is not on medications outpatient (4) Dizziness: - Resolved, ambulating w/o symptoms (5) Hyperlipidemia: - Chronic, LDL 192 01/30/24 Patient states he is not on medications outpatient - Continue Atorvastatin 40mg qHS (6) Epistaxis: - Resolved, likely a/w TNKase, no recurrence Plan Plan to d/c to [facility] pending [place] approval. DVT Ppx - Eliquis 2.5 mg BID DISPO: OT/PT rec acute rehab placement; CM continues working on Medicaid approval and placement. Diet: Heart healthy Full Code Admission and Anticipated Discharge Date Admission Date: January 29, 2024 Supervising Physician Co-Signing Physician Notes I personally examined the patient and verified all de león points of history and exam, discussed case, and agree with decision making with Dr Bearden showing on going progress w therapy. Vitals noted, in general he is awake and alert pleasant no distress. HEENT normocephalic atraumatic mucous membranes moist. Breathing unlabored no accessory muscle use good effort. Skin without rashes pallor or icterus. Neuro with ongoing right hand weakness although his gross motor and fine motor both seem to be improving some - can move all fingers R hand now voluntarily, gait slow and somewhat ataxic, but steady. No new deficits. Pontine strokeetiology not entirely clear. Secondary risk reduction. Asymmetric septal hypertrophy noted - doubt could be culprit for stroke, will need f/u (literature suggests surgery will potentially be warranted over time- but not appearing acutely needed) - possibly would benefit from beta paulette. Continue PT/OT, hopefully getting to rehab soon. encouraged by his progress. Subjective Patient laying in bed comfortably and in NAD. Denies having any pain. Has been trying to ambulate as much as he can around his room. No new symptoms or new concerns. Review of Systems Review of Systems: As per HPI. Physical Exam Physical Exam: Gen: NAD, WD/WN Resp: symmetrical chest rise, breathing non-labored Abd: Soft, NT/ND Skin: Warm, dry, pink, no rashes or lesions Neuro: AOx3, CN II-XII grossly intact - EOMI, no facial droop, nl sensation, no dysarthria - RUE: Slate Cutter Operator 4/5, Flexion/Extension 4/5 - LUE: Slate Cutter Operator, Flexion, and Extension 5/5 - RLE: Flexion and extension at knee 4/5 , Dorsiflexion and plantarflexion 4/5 - LLE: Flexion, extension, dorsiflexion, and plantarflexion 5/5 Results & Data Results & Data Vital Signs (Past 12 Hours) Vital Signs Temp Pulse Resp BP Pulse Ox O2 Del Method 03/06/24 07:53 36.9 C 67 16 117/70 95 Room Air 03/05/24 22:07 36.5 C 66 16 138/82 97 Room Air Resident Activity Tracking Resident Involvement: Resident Care Provided Care Provided: Adult Hospital Medicine
--- NOTE | 2024-03-06 14:58 | Billing Data ---
Date of Service March 06, 2024 Coding Level of Care Code 84624 SUB INP/OBS CARE
--- NOTE | 2024-03-07 10:10 | Hospitalist Progress Note ---
Date of Service March 07, 2024 Assessment & Plan (1) Left pontine CVA: (2) Hypertensive emergency: (3) Dizziness: (4) Hyperlipidemia: (5) Epistaxis: Plan Avelino is a 49M w/o significant PMH who presented 01/29/24 for stroke like symptoms and was found to have a left pontine CVA, he has been admitted for evaluation and ongoing physical therapy pending rehabilitation placement. (1) Left pontine CVA: - Seen on CT head and MRI brain, thrombolyzed with TPA (TNKase) on 01/29/24 Right sided strength deficit w/ left facial numbness Deficits improving daily; ordered R AFO to help improve his gait pattern as well - Neurology consultation: S/p DAPT for 3 weeks, now Plavix only - Eliquis 2.5mg BID for DVT prophylaxis - OT/PT/ST following: awaiting Rehab placement Weakness improving w/ OT and PT Pending Medicare authorization for rehabilitation (2) Systolic Murmur, RUSB/LUSB // HOCM - No aortic pathology noted on Echocardiogram 01/29 - Murmur not previously noted on physical examination; of note, previous exams were with patient supine but murmur noted with patient upright - Patient remains asymptomatic - Repeat TTE showing findings suggestive of HOCM - Rec outpatient follow up and monitoring; may need beta paulette which may also help address HTN (3) Hypertensive emergency: - HTN overnight (02/26) related to anxiety/agitation - No recurrence - Plasma metanephrines unremarkable - No active antihypertensives Noted to have chronic hypertension outpatient Patient states he is not on medications outpatient (4) Dizziness: - Resolved, ambulating w/o symptoms (5) Hyperlipidemia: - Chronic, LDL 192 01/30/24 Patient states he is not on medications outpatient - Continue Atorvastatin 40mg qHS (6) Epistaxis: - Resolved, likely a/w TNKase, no recurrence Plan Plan to d/c to [facility] pending [place] approval. DVT Ppx - Eliquis 2.5 mg BID DISPO: OT/PT rec acute rehab placement; CM continues working on Medicaid approval and placement. Diet: Heart healthy Full Code Admission and Anticipated Discharge Date Admission Date: January 29, 2024 Supervising Physician Co-Signing Physician Notes I personally examined the patient and verified all de león points of history and exam, discussed case, and agree with decision making with Dr Bearden still waiting on +/- insurance and therefore +/- rehab. Vitals noted, in general he is awake and alert pleasant no distress. HEENT normocephalic atraumatic mucous membranes moist. Breathing unlabored no accessory muscle use good effort. Skin without rashes pallor or icterus. Pontine strokeetiology not entirely clear. Secondary risk reduction. Asymmetric septal hypertrophy noted - doubt could be culprit for stroke, will need f/u (literature suggests surgery will potentially be warranted over time- but not appearing acutely needed) - possibly would benefit from beta paulette. Continue PT/OT, hopefully getting to rehab soon. encouraged by his progress. ideally would still be able to get to rehab to maximize recovery potential Subjective Feeling well. No new symptoms. No overnight events Review of Systems Review of Systems: As per HPI. Physical Exam Physical Exam: Gen: NAD, WD/WN Resp: symmetrical chest rise, breathing non-labored Abd: Soft, NT/ND Skin: Warm, dry, pink, no rashes or lesions Neuro: AOx3, CN II-XII grossly intact - EOMI, no facial droop, nl sensation, no dysarthria - RUE: Volcanologist 4/5, Flexion/Extension 4/5 - LUE: Volcanologist, Flexion, and Extension 5/5 - RLE: Flexion and extension at knee 4/5 , Dorsiflexion and plantarflexion 4/5 - LLE: Flexion, extension, dorsiflexion, and plantarflexion 5/5 Results & Data Results & Data Vital Signs (Past 12 Hours) Vital Signs Temp Pulse Resp BP Pulse Ox O2 Del Method 03/07/24 07:53 36.7 C 73 18 103/67 98 Room Air Resident Activity Tracking Resident Involvement: Resident Care Provided Care Provided: Adult Hospital Medicine
--- NOTE | 2024-03-07 13:21 | Billing Data ---
Date of Service March 07, 2024 Coding Level of Care Code 96097 SUB INP/OBS CARE
--- NOTE | 2024-03-08 10:12 | Hospitalist Progress Note ---
Date of Service March 08, 2024 Assessment & Plan (1) Left pontine CVA: (2) Hypertensive emergency: (3) Dizziness: (4) Hyperlipidemia: (5) Epistaxis: Plan Avelino is a 49M w/o significant PMH who presented 01/29/24 for stroke like symptoms and was found to have a left pontine CVA, he has been admitted for evaluation and ongoing physical therapy pending rehabilitation placement. (1) Left pontine CVA: - Seen on CT head and MRI brain, thrombolyzed with TPA (TNKase) on 01/29/24 Right sided strength deficit w/ left facial numbness Deficits improving daily; ordered R AFO to help improve his gait pattern as well - Neurology consultation: S/p DAPT for 3 weeks, now Plavix only - Eliquis 2.5mg BID for DVT prophylaxis - OT/PT/ST following: awaiting Rehab placement Weakness improving w/ OT and PT Pending Medicare authorization for rehabilitation (2) Systolic Murmur, RUSB/LUSB // HOCM - No aortic pathology noted on Echocardiogram 01/29 - Murmur not previously noted on physical examination; of note, previous exams were with patient supine but murmur noted with patient upright - Patient remains asymptomatic - Repeat TTE showing findings suggestive of HOCM - Rec outpatient follow up and monitoring; may need beta paulette which may also help address HTN (3) Hypertensive emergency: - HTN overnight (02/26) related to anxiety/agitation - No recurrence - Plasma metanephrines unremarkable - No active antihypertensives Noted to have chronic hypertension outpatient Patient states he is not on medications outpatient (4) Dizziness: - Resolved, ambulating w/o symptoms (5) Hyperlipidemia: - Chronic, LDL 192 01/30/24 Patient states he is not on medications outpatient - Continue Atorvastatin 40mg qHS (6) Epistaxis: - Resolved, likely a/w TNKase, no recurrence Plan Plan to d/c to [facility] pending [place] approval. DVT Ppx - Eliquis 2.5 mg BID DISPO: OT/PT rec acute rehab placement; CM continues working on Medicaid approval and placement. Diet: Heart healthy Full Code Admission and Anticipated Discharge Date Admission Date: January 29, 2024 Supervising Physician Co-Signing Physician Notes I personally examined the patient and verified all de león points of history and exam, discussed case, and agree with decision making with Dr Bearden still waiting on +/- insurance and therefore +/- rehab. he is happy with the progress he is making. Vitals noted, in general he is awake and alert pleasant no distress. HEENT normocephalic atraumatic mucous membranes moist. Breathing unlabored no accessory muscle use good effort. Skin without rashes pallor or icterus. Pontine strokeetiology not entirely clear. Secondary risk reduction. Asymmetric septal hypertrophy noted - doubt could be culprit for stroke, will need f/u (literature suggests surgery will potentially be warranted over time- but not appearing acutely needed) - possibly would benefit from beta paulette. Continue PT/OT, hopefully getting to rehab soon. encouraged by his progress. was able to shake his hand today! ideally would still be able to get to rehab to maximize recovery potential Subjective Feeling well. No new symptoms. No overnight events Review of Systems Review of Systems: As per HPI. Physical Exam Physical Exam: Gen: NAD, WD/WN Resp: symmetrical chest rise, breathing non-labored Abd: Soft, NT/ND Skin: Warm, dry, pink, no rashes or lesions Neuro: AOx3, CN II-XII grossly intact - EOMI, no facial droop, nl sensation, no dysarthria - RUE: Senior Internet Sales Consultant 4/5, Flexion/Extension 4/5 - LUE: Senior Internet Sales Consultant, Flexion, and Extension 5/5 - RLE: Flexion and extension at knee 4/5 , Dorsiflexion and plantarflexion 4/5 - LLE: Flexion, extension, dorsiflexion, and plantarflexion 5/5 Results & Data Results & Data Vital Signs (Past 12 Hours) Vital Signs Temp Pulse Resp BP Pulse Ox O2 Del Method 03/08/24 07:15 36.3 C L 66 18 145/74 H 96 Room Air Resident Activity Tracking Resident Involvement: Resident Care Provided Care Provided: Adult Hospital Medicine
--- NOTE | 2024-03-08 19:05 | Billing Data ---
Date of Service March 08, 2024 Coding Level of Care Code 04236 SUB INP/OBS CARE
[2024-03-09] MEDS: ACETAMINOPHEN 325 MG TAB PO PRN (08:21)
--- NOTE | 2024-03-09 08:45 | Hospitalist Progress Note ---
Date of Service March 09, 2024 Assessment & Plan (1) Left pontine CVA: (2) Hypertensive emergency: (3) Dizziness: (4) Hyperlipidemia: (5) Epistaxis: Plan Avelino is a 49M w/o significant PMH who presented 01/29/24 for stroke like symptoms and was found to have a left pontine CVA, he has been admitted for evaluation and ongoing physical therapy pending rehabilitation placement. (1) Left pontine CVA: - Seen on CT head and MRI brain, thrombolyzed with TPA (TNKase) on 01/29/24 Right sided strength deficit w/ left facial numbness Deficits improving daily; added R AFO to help improve his gait pattern as well - Neurology consultation: S/p DAPT for 3 weeks, now Plavix only - Eliquis 2.5mg BID for DVT prophylaxis - OT/PT/ST following: awaiting Rehab placement Weakness improving w/ OT and PT Pending Medicare authorization for rehabilitation (2) Systolic Murmur, RUSB/LUSB // HOCM - No aortic pathology noted on Echocardiogram 01/29 - Murmur not previously noted on physical examination; of note, previous exams were with patient supine but murmur noted with patient upright - Repeat TTE showing findings suggestive of HOCM - Recc outpatient follow up and monitoring; may need beta paulette which may also help address HTN (3) Hypertensive emergency: - HTN overnight (02/26) related to anxiety/agitation - No recurrence - Plasma metanephrines unremarkable - No active antihypertensives Noted to have chronic hypertension outpatient Patient states he is not on medications outpatient (4) Dizziness: - Resolved, ambulating w/o symptoms (5) Hyperlipidemia: - Chronic, LDL 192 01/30/24 Patient states he is not on medications outpatient - Continue Atorvastatin 40mg qHS (6) Epistaxis: - Resolved, likely a/w TNKase, no recurrence Plan Plan to d/c to [facility] pending [place] approval. DVT Ppx - Eliquis 2.5 mg BID DISPO: OT/PT rec acute rehab placement; CM continues working on Medicaid approval and placement. Diet: Heart healthy Full Code Admission and Anticipated Discharge Date Admission Date: January 29, 2024 Supervising Physician Co-Signing Physician Notes I personally examined the patient and verified all de león points of history and exam, discussed case, and agree with decision making with Dr Bearden still waiting on +/- insurance and therefore +/- rehab. doing better slowly. d/w PT appreciate ongoing work with pt since we have not been able to get him to rehab - this has been instrumental in his improvement. Vitals noted, in general he is awake and alert pleasant no distress. HEENT normocephalic atraumatic mucous membranes moist. Breathing unlabored no accessory muscle use good effort. Skin without rashes pallor or icterus. Pontine strokeetiology not entirely clear. Secondary risk reduction. Asymmetric septal hypertrophy noted - doubt could be culprit for stroke, will need f/u (literature suggests surgery will potentially be warranted over time- but not appearing acutely needed) - possibly would benefit from beta paulette. Continue PT/OT, hopefully getting to rehab soon. encouraged by his progress. still awaiting hopeful rehab placement. Subjective Feeling well. No new symptoms. No overnight events. Review of Systems Review of Systems: As per HPI. Physical Exam Physical Exam: Gen: NAD, WD/WN Resp: symmetrical chest rise, breathing non-labored Abd: Soft, NT/ND Skin: Warm, dry, pink, no rashes or lesions Neuro: AOx3, EOMI, no facial droop, nl sensation, no dysarthria, Right sided weakness persistent but stable/improving Resident Activity Tracking Resident Involvement: Resident Care Provided Care Provided: Adult Hospital Medicine
--- NOTE | 2024-03-09 15:03 | Billing Data ---
Date of Service March 09, 2024 Coding Level of Care Code 54789 SUB INP/OBS CARE
--- NOTE | 2024-03-10 09:26 | Hospitalist Progress Note ---
Date of Service March 10, 2024 Assessment & Plan (1) Left pontine CVA: (2) Hypertensive emergency: (3) Dizziness: (4) Hyperlipidemia: (5) Epistaxis: Plan Avelino is a 49M w/o significant PMH who presented 01/29/24 for stroke like symptoms and was found to have a left pontine CVA, he has been admitted for evaluation and ongoing physical therapy pending rehabilitation placement. (1) Left pontine CVA: - Seen on CT head and MRI brain, thrombolyzed with TPA (TNKase) on 01/29/24 Right sided strength deficit w/ left facial numbness Deficits improving daily; added R AFO to help improve his gait pattern as well - Neurology consultation: S/p DAPT for 3 weeks, now Plavix only - Eliquis 2.5mg BID for DVT prophylaxis - OT/PT/ST following: awaiting Rehab placement Weakness improving w/ OT and PT Pending Medicare authorization for rehabilitation (2) Systolic Murmur, RUSB/LUSB // HOCM - No aortic pathology noted on Echocardiogram 01/29 - Murmur not previously noted on physical examination; of note, previous exams were with patient supine but murmur noted with patient upright - Repeat TTE showing findings suggestive of HOCM - Recc outpatient follow up and monitoring; may need beta paulette which may also help address HTN (3) Hypertensive emergency: - HTN overnight (02/26) related to anxiety/agitation - No recurrence - Plasma metanephrines unremarkable - No active antihypertensives Noted to have chronic hypertension outpatient Patient states he is not on medications outpatient (4) Dizziness: - Resolved, ambulating w/o symptoms (5) Hyperlipidemia: - Chronic, LDL 192 01/30/24 Patient states he is not on medications outpatient - Continue Atorvastatin 40mg qHS (6) Epistaxis: - Resolved, likely a/w TNKase, no recurrence Plan Plan to d/c to [facility] pending [place] approval. DVT Ppx - Eliquis 2.5 mg BID DISPO: OT/PT rec acute rehab placement; CM continues working on Medicaid approval and placement. Diet: Heart healthy Full Code Admission and Anticipated Discharge Date Admission Date: January 29, 2024 Supervising Physician Co-Signing Physician Notes I personally examined the patient and verified all de león points of history and exam, discussed case, and agree with decision making with Dr Bearden still waiting on +/- insurance and therefore +/- rehab. He is pleased with his progress. Vitals noted, in general he is awake and alert pleasant no distress. HEENT normocephalic atraumatic mucous membranes moist. Breathing unlabored no accessory muscle use good effort. Skin without rashes pallor or icterus. Pontine strokeetiology not entirely clear. Secondary risk reduction. Asymmetric septal hypertrophy noted - doubt could be culprit for stroke, will need f/u (literature suggests surgery will potentially be warranted over time- but not appearing acutely needed) - possibly would benefit from beta paulette. Continue PT/OT, hopefully getting to rehab soon, still waiting on bureaucratic processes. encouraged by his progress. still awaiting hopeful rehab placement. Subjective Feeling well. Feels excited that his weakness is getting better. No new symptoms. No overnight events. Review of Systems Review of Systems: As per HPI. Physical Exam Physical Exam: Gen: NAD, WD/WN Resp: symmetrical chest rise, breathing non-labored Abd: Soft, NT/ND Skin: Warm, dry, pink, no rashes or lesions Neuro: AOx3, EOMI, no facial droop, nl sensation, no dysarthria, Right sided weakness persistent but stable/improving Results & Data Results & Data Vital Signs (Past 12 Hours) Vital Signs Temp Pulse Resp BP Pulse Ox O2 Del Method 03/10/24 07:50 36.9 C 65 18 103/68 97 Room Air Resident Activity Tracking Resident Involvement: Resident Care Provided Care Provided: Adult Hospital Medicine
--- NOTE | 2024-03-10 14:43 | Billing Data ---
Date of Service March 10, 2024 Coding Level of Care Code 33038 SUB INP/OBS CARE
--- NOTE | 2024-03-11 11:19 | Hospitalist Progress Note ---
Date of Service March 11, 2024 Assessment & Plan (1) Left pontine CVA: (2) Hypertensive emergency: (3) Dizziness: (4) Hyperlipidemia: (5) Epistaxis: Plan Avelino is a 49M w/o significant PMH who presented 01/29/24 for stroke like symptoms and was found to have a left pontine CVA, he has been admitted for evaluation and ongoing physical therapy pending rehabilitation placement. (1) Left pontine CVA: - Seen on CT head and MRI brain, thrombolyzed with TPA (TNKase) on 01/29/24 Right sided strength deficit w/ left facial numbness Deficits improving daily; added R AFO to help improve his gait pattern as well - Neurology consultation: S/p DAPT for 3 weeks, now Plavix only - Eliquis 2.5mg BID for DVT prophylaxis - OT/PT/ST following: awaiting Rehab placement Weakness improving w/ OT and PT Pending Medicare authorization for rehabilitation (2) Systolic Murmur, RUSB/LUSB // HOCM - No aortic pathology noted on Echocardiogram 01/29 - Murmur not previously noted on physical examination; of note, previous exams were with patient supine but murmur noted with patient upright - Repeat TTE showing findings suggestive of HOCM - Recc outpatient follow up and monitoring; may need beta paulette which may also help address HTN (3) Hypertensive emergency: - HTN overnight (02/26) related to anxiety/agitation - No recurrence - Plasma metanephrines unremarkable - No active antihypertensives Noted to have chronic hypertension outpatient Patient states he is not on medications outpatient (4) Dizziness: - Resolved, ambulating w/o symptoms (5) Hyperlipidemia: - Chronic, LDL 192 01/30/24 Patient states he is not on medications outpatient - Continue Atorvastatin 40mg qHS (6) Epistaxis: - Resolved, likely a/w TNKase, no recurrence Plan Plan to d/c to [facility] pending [place] approval. DVT Ppx - Eliquis 2.5 mg BID DISPO: OT/PT rec acute rehab placement; CM continues working on Medicaid approval and placement. Diet: Heart healthy Full Code Admission and Anticipated Discharge Date Admission Date: January 29, 2024 Supervising Physician Co-Signing Physician Notes Attending attestation Pt seen and examined in concert with Dr. Suleiman Morin. In agreement with the documented findings as noted in the resident documentation with any exceptions or additions as noted here. No acute complaints at bedside On examination, S1/S2 nl RRR no MCG. CTAB. Abd NT/ND BS+ve CVA, left pontine with persistent weakness - PT/OT consult - working well with PT. Continue clopidogrel HTN in the setting of HOCM - borderline controlled, continue to monitor and adjust if persistently elevated past 150s/90s Else see resident documentation as noted. Subjective Feeling well. No new symptoms. No overnight events. Review of Systems Review of Systems: As per HPI. Physical Exam Physical Exam: Gen: NAD, WD/WN Resp: symmetrical chest rise, breathing non-labored Abd: Soft, NT/ND Skin: Warm, dry, pink, no rashes or lesions Neuro: AOx3, EOMI, no facial droop, nl sensation, no dysarthria, Right sided weakness and UE stiffness persistent but stable/improving Results & Data Results & Data Vital Signs (Past 12 Hours) Vital Signs Temp Pulse Resp BP Pulse Ox O2 Del Method 03/11/24 07:15 36.3 C L 79 16 116/73 95 Room Air Resident Activity Tracking Resident Involvement: Resident Care Provided Care Provided: Adult Hospital Medicine
--- NOTE | 2024-03-12 10:27 | Hospitalist Progress Note ---
Date of Service March 12, 2024 Assessment & Plan (1) Left pontine CVA: (2) Hypertensive emergency: (3) Dizziness: (4) Hyperlipidemia: (5) Epistaxis: Plan Avelino is a 49M w/o significant PMH who presented 01/29/24 for stroke like symptoms and was found to have a left pontine CVA, he has been admitted for evaluation and ongoing physical therapy pending rehabilitation placement. (1) Left pontine CVA: - Seen on CT head and MRI brain, thrombolyzed with TPA (TNKase) on 01/29/24 Right sided strength deficit w/ left facial numbness Deficits improving daily; added R AFO to help improve his gait pattern as well - Neurology consultation: S/p DAPT for 3 weeks, now Plavix only - Eliquis 2.5mg BID for DVT prophylaxis - OT/PT/ST following: awaiting Rehab placement Weakness improving w/ OT and PT Pending Medicare authorization for rehabilitation (2) Systolic Murmur, RUSB/LUSB // HOCM - No aortic pathology noted on Echocardiogram 01/29 - Murmur not previously noted on physical examination; of note, previous exams were with patient supine but murmur noted with patient upright - Repeat TTE showing findings suggestive of HOCM - Recc outpatient follow up and monitoring; may need beta paulette which may also help address HTN (3) Hypertensive emergency: - HTN overnight (02/26) related to anxiety/agitation - No recurrence - Plasma metanephrines unremarkable - No active antihypertensives Noted to have chronic hypertension outpatient Patient states he is not on medications outpatient (4) Dizziness: - Resolved, ambulating w/o symptoms (5) Hyperlipidemia: - Chronic, LDL 192 01/30/24 Patient states he is not on medications outpatient - Continue Atorvastatin 40mg qHS (6) Epistaxis: - Resolved, likely a/w TNKase, no recurrence Plan Plan to d/c to [facility] pending [place] approval. DVT Ppx - Eliquis 2.5 mg BID DISPO: OT/PT rec acute rehab placement; CM continues working on Medicaid approval and placement. Diet: Heart healthy Full Code Admission and Anticipated Discharge Date Admission Date: January 29, 2024 Supervising Physician Co-Signing Physician Notes Attending attestation Pt seen and examined in concert with Dr. Suleiman Morin. In agreement with the documented findings as noted in the resident documentation with any exceptions or additions as noted here. No acute complaints at time of examination On examination, S1/S2 nl RRR no MCG. CTAB. Abd NT/ND BS+ve. ongoing right sided weakness CVA, left pontine with persistent weakness - PT/OT consult - working well with PT. Continue clopidogrel HTN in the setting of HOCM - borderline controlled, continue to monitor and adjust if persistently elevated past 150s/90s Else see resident documentation as noted. Subjective Feeling well. No new symptoms. No overnight events. Review of Systems Review of Systems: As per HPI. Physical Exam Physical Exam: Gen: NAD, WD/WN Resp: symmetrical chest rise, breathing non-labored Abd: Soft, NT/ND Skin: Warm, dry, pink, no rashes or lesions Neuro: AOx3, EOMI, no facial droop, nl sensation, no dysarthria, Right sided weakness and UE stiffness persistent but stable/improving Results & Data Results & Data Vital Signs (Past 12 Hours) Vital Signs Temp Pulse Resp BP Pulse Ox O2 Del Method 03/12/24 07:33 36.4 C L 59 L 16 117/69 97 Room Air Resident Activity Tracking Resident Involvement: Resident Care Provided Care Provided: Adult Hospital Medicine
--- NOTE | 2024-03-13 10:51 | Hospitalist Progress Note ---
Date of Service March 13, 2024 Assessment & Plan (1) Left pontine CVA: (2) Hypertensive emergency: (3) Dizziness: (4) Hyperlipidemia: (5) Epistaxis: Plan Avelino is a 49M w/o significant PMH who presented 01/29/24 for stroke like symptoms and was found to have a left pontine CVA, he has been admitted for evaluation and ongoing physical therapy pending rehabilitation placement. (1) Left pontine CVA: - Seen on CT head and MRI brain, thrombolyzed with TPA (TNKase) on 01/29/24 Right sided strength deficit w/ left facial numbness Deficits improving daily; added R AFO to help improve his gait pattern as well - Neurology consultation: S/p DAPT for 3 weeks, now Plavix only - Eliquis 2.5mg BID for DVT prophylaxis - OT/PT/ST following: awaiting Rehab placement Weakness improving w/ OT and PT Pending Medicare authorization for rehabilitation (2) Systolic Murmur, RUSB/LUSB // HOCM - No aortic pathology noted on Echocardiogram 01/29 - Murmur not previously noted on physical examination; of note, previous exams were with patient supine but murmur noted with patient upright - Repeat TTE showing findings suggestive of HOCM - Recc outpatient follow up and monitoring; may need beta paulette which may also help address HTN (3) Hypertensive emergency: - HTN overnight (02/26) related to anxiety/agitation - No recurrence - Plasma metanephrines unremarkable - No active antihypertensives Noted to have chronic hypertension outpatient Patient states he is not on medications outpatient (4) Dizziness: - Resolved, ambulating w/o symptoms (5) Hyperlipidemia: - Chronic, LDL 192 01/30/24 Patient states he is not on medications outpatient - Continue Atorvastatin 40mg qHS (6) Epistaxis: - Resolved, likely a/w TNKase, no recurrence Plan Plan to d/c to [facility] pending [place] approval. DVT Ppx - Eliquis 2.5 mg BID DISPO: OT/PT rec acute rehab placement; CM continues working on Medicaid approval and placement. Diet: Heart healthy Full Code Admission and Anticipated Discharge Date Admission Date: January 29, 2024 Supervising Physician Co-Signing Physician Notes Attending attestation Pt seen and examined in concert with Dr. Suleiman Morin. In agreement with the documented findings as noted in the resident documentation with any exceptions or additions as noted here. No acute complaints at time of examination On examination, S1/S2 nl RRR no MCG. CTAB. Abd NT/ND BS+ve. ongoing right sided weakness CVA, left pontine with persistent weakness - PT/OT consult - working well with PT. Continue clopidogrel HTN in the setting of HOCM - borderline controlled, continue to monitor and adjust if persistently elevated past 150s/90s Else see resident documentation as noted. Subjective Feeling well. No new symptoms. No overnight events. Review of Systems Review of Systems: As per HPI. Physical Exam Physical Exam: Gen: NAD, WD/WN Resp: symmetrical chest rise, breathing non-labored Abd: Soft, NT/ND Skin: Warm, dry, pink, no rashes or lesions Neuro: AOx3, EOMI, no facial droop, nl sensation, no dysarthria Results & Data Results & Data Vital Signs (Past 12 Hours) Vital Signs Temp Pulse Resp BP Pulse Ox O2 Del Method 03/13/24 07:15 36.8 C 63 20 125/79 94 Room Air Resident Activity Tracking Resident Involvement: Resident Care Provided Care Provided: Adult Hospital Medicine
--- NOTE | 2024-03-14 12:35 | Hospitalist Progress Note ---
Date of Service March 14, 2024 Assessment & Plan (1) Left pontine CVA: (2) Hypertensive emergency: (3) Dizziness: (4) Hyperlipidemia: (5) Epistaxis: Plan Avelino is a 49M w/o significant PMH who presented 01/29/24 for stroke like symptoms and was found to have a left pontine CVA, he has been admitted for evaluation and ongoing physical therapy pending rehabilitation placement. (1) Left pontine CVA: - Seen on CT head and MRI brain, thrombolyzed with TPA (TNKase) on 01/29/24 Right sided strength deficit w/ left facial numbness Deficits improving daily; added R AFO to help improve his gait pattern as well - Neurology consultation: S/p DAPT for 3 weeks, now Plavix only - Eliquis 2.5mg BID for DVT prophylaxis - OT/PT/ST following: awaiting Rehab placement Weakness improving w/ OT and PT Pending Medicare authorization for rehabilitation (2) Systolic Murmur, RUSB/LUSB // HOCM - No aortic pathology noted on Echocardiogram 01/29 - Murmur not previously noted on physical examination; of note, previous exams were with patient supine but murmur noted with patient upright - Repeat TTE showing findings suggestive of HOCM - Recc outpatient follow up and monitoring; may need beta paulette which may also help address HTN (3) Hypertensive emergency: - HTN overnight (02/26) related to anxiety/agitation - No recurrence - Plasma metanephrines unremarkable - No active antihypertensives Noted to have chronic hypertension outpatient Patient states he is not on medications outpatient (4) Dizziness: - Resolved, ambulating w/o symptoms (5) Hyperlipidemia: - Chronic, LDL 192 01/30/24 Patient states he is not on medications outpatient - Continue Atorvastatin 40mg qHS (6) Epistaxis: - Resolved, likely a/w TNKase, no recurrence Plan Plan to d/c to [facility] pending [place] approval. DVT Ppx - Eliquis 2.5 mg BID DISPO: OT/PT rec acute rehab placement; CM continues working on Medicaid approval and placement. Diet: Heart healthy Full Code Admission and Anticipated Discharge Date Admission Date: January 29, 2024 Supervising Physician Co-Signing Physician Notes Attending attestation Pt seen and examined in concert with Dr. Suleiman Morin. In agreement with the documented findings as noted in the resident documentation with any exceptions or additions as noted here. No acute complaints at time of evaluation. On examination, S1/S2 nl RRR no MCG. CTAB. Abd NT/ND BS+ve. ongoing right sided weakness CVA, left pontine with persistent weakness - PT/OT consult - ongoing engagement with PT. Continue clopidogrel. Case management aware. HTN in the setting of HOCM - controlled, continue to monitor and adjust if persistently elevated past 150s/90s. Else see resident documentation as noted. Subjective Feeling well. No new symptoms. No overnight events. Review of Systems Review of Systems: As per HPI. Physical Exam Physical Exam: Gen: NAD, WD/WN Resp: symmetrical chest rise, breathing non-labored Abd: Soft, NT/ND Skin: Warm, dry, pink, no rashes or lesions Neuro: AOx3, EOMI, no facial droop, nl sensation, no dysarthria Results & Data Results & Data Vital Signs (Past 12 Hours) Vital Signs Pulse BP Pulse Ox O2 Del Method 03/14/24 07:25 78 133/84 96 Room Air Resident Activity Tracking Resident Involvement: Resident Care Provided Care Provided: Adult Hospital Medicine
--- NOTE | 2024-03-15 16:49 | Hospitalist Progress Note ---
Date of Service March 15, 2024 Assessment & Plan (1) Left pontine CVA: (2) Hypertensive emergency: (3) Dizziness: (4) Hyperlipidemia: (5) Epistaxis: Plan Avelino is a 49M w/o significant PMH who presented 01/29/24 for stroke like symptoms and was found to have a left pontine CVA, he has been admitted for evaluation and ongoing physical therapy pending rehabilitation placement. Spoke with patient at bedside who states that he would like to go home soon. Mentioned that appropriate follow up with PT and/or a general practitioner is important given his recent CVA as well as his newly found HOCM. Patient states they would like to return to [place] to be with his family instead of staying locally. He understands the importance of follow up and states he would start seeing his 's GP who has low prices and also offers payment plans should something cost too much. He is not aware of free clinics in [place] where he could go. Medically, patient is stable and has only been pending placement.but was pending disposition. Discussed with CM who will try and coordinate three prong cane as well to help with home PT. (1) Left pontine CVA: - Seen on CT head and MRI brain, thrombolyzed with TPA (TNKase) on 01/29/24 Right sided strength deficit w/ left facial numbness Deficits improving daily; added R AFO to help improve his gait pattern as well - Neurology consultation: S/p DAPT for 3 weeks, now Plavix only - Eliquis 2.5mg BID for DVT prophylaxis - OT/PT/ST following: awaiting Rehab placement Weakness improving w/ OT and PT Pending Medicare authorization for rehabilitation (2) Systolic Murmur, RUSB/LUSB // HOCM - No aortic pathology noted on Echocardiogram 01/29 - Murmur not previously noted on physical examination; of note, previous exams were with patient supine but murmur noted with patient upright - Repeat TTE showing findings suggestive of HOCM - [facility] outpatient follow up and monitoring; may need beta paulette which may also help address HTN (3) Hypertensive emergency: - HTN overnight (02/26) related to anxiety/agitation - No recurrence - Plasma metanephrines unremarkable - No active antihypertensives Noted to have chronic hypertension outpatient Patient states he is not on medications outpatient (4) Dizziness: - Resolved, ambulating w/o symptoms (5) Hyperlipidemia: - Chronic, LDL 192 01/30/24 Patient states he is not on medications outpatient - Continue Atorvastatin 40mg qHS (6) Epistaxis: - Resolved, likely a/w TNKase, no recurrence Plan Plan to d/c to [facility] acute rehab pending [place] approval. DVT Ppx - Eliquis 2.5 mg BID DISPO: OT/PT rec acute rehab placement; CM continues working on Medicaid approval and placement. Diet: Heart healthy Full Code Admission and Anticipated Discharge Date Admission Date: January 29, 2024 Supervising Physician Co-Signing Physician Notes ATTESTATION I also saw the patient and confirmed de león portions of the history and exam. I agree with the impression and plan in the resident documentation, and as summarized below. He is ambulatory in his room. He has regained some significant ROM since I saw him last about three to four weeks ago. PT notes reviewed from today. Discharge planning has been problematic pending insurance for placement. He has now had about five weeks of PT here in the hospital. He would like to go home with his in [place], which may be more reasonable now than what we would have though a month ago. Other issue would be needed PCP follow up given he lacks insurance. Discussed there may be free clinic in the area that his lives. Subjective Feeling well. No new symptoms. No overnight events. Review of Systems Review of Systems: As per HPI. Physical Exam Physical Exam: Gen: NAD, WD/WN Resp: symmetrical chest rise, breathing non-labored Abd: Soft, NT/ND Skin: Warm, dry, pink, no rashes or lesions Neuro: AOx3, EOMI, no facial droop, nl sensation, no dysarthria Results & Data Results & Data Vital Signs (Past 12 Hours) Vital Signs Temp Pulse Resp BP Pulse Ox O2 Del Method 03/15/24 07:06 36.4 C L 61 14 132/87 96 Room Air Resident Activity Tracking Resident Involvement: Resident Care Provided Care Provided: Adult Hospital Medicine
[2024-03-15 21:51] VITALS: O2SAT 97
[2024-03-16 08:18] VITALS: BP 137/87; PULSE 76; RESP 16; TEMP 98.4
--- NOTE | 2024-03-16 09:08 | Discharge Summary ---
Date of Service March 16, 2024 Admission HPI Per Admitting Provider Avelino is a 48-year-old male with no past medical history takes no chronic medications who presents to the ER with left eye pain, and right face/arm numbness and right arm and leg weakness with acute onset and waxing and waning severity. Symptoms lasted 15 minutes and then recurred intermittently. CThead, CTA without acute findings Patient was evaluated telestroke and with waxing waning symptoms was recommended for TNKase Was hypertensive, received IV labetalol and hydralazine. Did have elevated blood pressure control and nicardipine was ordered however patient's blood pressure dropped prior to initiating this and he was given TNKase. Mikal is seen at the bedside. He reports that he felt normal up until the last day or so. Endorses in the last 1-2 days has had intermittent jerking of his right arm and leg in addition to some weakness and numbness. Has also had some right sided facial numbness. Additionally had some left eye pain prior to his symptoms worsening today, eye pain is resolved at time of bedside visit. Patient initially responds that his vision is clear and no double vision, reports later on reassessment that he has double vision but cannot clarify if this is vertical or horizontal and then again denies double vision afterwards. Denies fever chills or sweats. Denies insect bites. enies prior history of seizure. He has no medical problems but notes he does not follow with a doctor. He is not take any prescription medications. Denies [id number] supplement use. Denies tobacco alcohol and recreational drug use. Denies family history of similar symptoms. He has not been sick recently. Medical History: Reviewed Medications: Reviewed Surgical History: Reviewed Family history: Reviewed Allergies: Reviewed Social History: Denies tobacco/etoh/drug use Code Status: Full Admission Exam Per Admitting Provider General: Alert and oriented x 3 although intermittently confused. Answers most questions appropriately. Patient is having akathetic movements of his right arm right leg and some contractures of his neck. He does not have pain on neck flexion HEENT: Vision grossly intact. Pupils equal and reactive to light. No photosensitivity Pulm: CTAB A&P. -wheezes, -rales, -rhonchi. Symmetrical chest rise. No increased work of breathing. No respiratory distress. Cardiac: RRR, -mrg. Radial pulses intact and symmetrical. Abdominal: Nontender, nondistended, soft. 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 Does have akathetic movements of the right arm and right leg but does follow commands for strength testing and strength is intact. Does not have akathetic movements of the left arm or leg. Sensation to soft touch in hand and feet is intact and reportedly equal at time of assessment. Principal Diagnosis Left pontine stroke Discharge Exam General: Alert and oriented, no acute distress, HEENT: Normocephalic, moist oral mucosa, Cardio: Regular rate and rhythm, Resp: Lungs clear to auscultation b/l, no wheezes or rhonchi, GI: Soft and nontender, nondistended, bowel sounds active Skin: Warm, pink, dry, Extremities: No edema or gross deformities Neuro: Box Attacher strength, UE flexion/extension at shoulder, elbow, wrist and LE flexion/extension at hip, knee, ankle, toes all relatively symmetric with only slightly increased weakness on R side compared to L side Discharge Data Allergies Allergy/AdvReac Type Severity Reaction Status Date / Time No Known Allergies Allergy Unverified 01/29/24 19:11 Consultations 01/29/24 18:40 ED Decision to Admit Stat 01/29/24 19:01 Consult Neurology Routine 01/29/24 20:57 Consult Pan Operator Routine Ordered Studies 01/29/24 17:08 CT angio head w con Stat CT angio neck with con Stat CT head/brain wo con Stat 01/29/24 19:04 MR brain wo con Routine 01/30/24 09:39 CT head/brain wo con Stat 01/30/24 17:14 MRI Brain [MR brain wo con] Stat Hospital Course (1) Left pontine CVA: (2) Hypertensive emergency: (3) Dizziness: (4) Hyperlipidemia: (5) Epistaxis: Madhuri You is a 49M w/o significant PMH who presented 01/29/24 for stroke like symptoms and was found to have a left pontine CVA, he was been admitted for evaluation and ongoing physical therapy pending rehabilitation placement but given lack of insurance pt opted to go back to [place] to be with family instead of continuing to wait here for rehab. Left pontine CVA - Seen on CT head and MRI brain, thrombolyzed with TPA (TNKase) on 01/29/24 Right sided strength deficit w/ left facial numbness Deficits improved daily - Neurology consultation: S/p DAPT for 3 weeks, was on plavix only at discharge but given cost, will discharge on aspirin daily for antiplatelet - was pending rehab but given no insurance, pt has been here for 46 days or so and decided he would like to be discharged to go back to be with his family in [place] - stressed to pt importance of following up with general PCP and he will follow with his 's GP Systolic Murmur, RUSB/LUSB // HOCM - No aortic pathology noted on Echocardiogram 01/29 - Murmur not previously noted on physical examination; of note, previous exams were with patient supine but murmur noted with patient upright - Repeat TTE showing findings suggestive of HOCM - [facility] outpatient follow up and monitoring; may need beta paulette which may also help address HTN Hypertension, stable - HTN overnight (02/26) related to anxiety/agitation - No recurrence - Plasma metanephrines unremarkable - No active antihypertensives Noted to have chronic hypertension outpatient Patient states he is not on medications outpatient Hyperlipidemia - Chronic, LDL 192 01/30/24 Patient states he is not on medications outpatient - Continue Atorvastatin 40mg qHS on discharge Total Time Total Time Spent Total Time Spent (In Minutes): 30 minutes Discharge Plan Discharge Items Patient Disposition: Home - Self-Care Reason For Visit: RUE/RLL WEAKNESS/ NUMBNESS POST TNK Discharge Diagnosis: Left pontine stroke Activity: Per Instructions section Non-emergency contact: Primary Care Provider and Neurologist Call non-emergency contact if: you have any medication questions and your symptoms worsen Follow-up/Referrals: PCP,NO [Primary Care Provider] - (SPOKE TO PATIENT ABOUT ESTABLISHING A PCP WITH [facility]. HE IS NOT INTERESTED AT THIS TIME.) Diet: Heart Healthy Addtl Attending Provider Instructions: You were admitted to the hospital for a stroke. As we discussed, the most important steps going forward are keeping up with your medications and following up with a doctor, whether that be here in [place] or in [place]. Continuing daily medications is very important in reducing your risk of having another stroke. You should also continue to do physical therapy, even if it is just the same exercises our therapists did with you in the hospital on your own. 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 All of these medications are important in preventing another stroke from occurring. If your symptoms worsen, please go to the ER immediately. Continue to do activity as tolerated but be very careful, particularly with walking around, as you may find it more difficult to lift your leg and coordinate than before you had the stroke. Pending Studies at Discharge: No Stand-Alone Forms: My [facility] GetAutoBids, Smoking Cessation, Medications to Prevent Stroke Medications and DC Order Prescriptions: New atorvastatin 40 mg Tablet 40 mg PO QAM Qty: 60 1RF aspirin [Adult Aspirin Regimen] 81 mg tablet,delayed release (DR/EC) 81 mg PO DAILY Qty: 60 1RF Discharge Orders: Discharge Order (Routine); Ordered 03/16/24 Ordered By: Peggy Rosa Admission Data Admit Date/Time: 01/29/24 19:22 Attending Provider: Jose G Elam Admit Provider: Lamin Patel Primary Care Provider: PCP,NO [facility]: [facility]; Lamin Patel; Pierce Mendoza; [facility]; Vik Duarte Other Interventions: Discharge Summary Assessment (RN) Last Done: 03/16/24 10:10 Supervising Physician Co-Signing Physician Notes ATTESTATION I also saw the patient and confirmed de león portions of the history and exam. I agree with the impression and plan in the resident documentation, and as summarized below. Discharge plan is to his home here in the [facility] today, and his will pick him up tomorrow or Monday to take him back to [place]. We discussed the importance of PCP follow up once he is in [place]. He told me that his has a clinic that he anticipates using as well. Upon exam, no acute distress. BPs have been good. Lungs CTA CV regular rate (+) systolic murmur right upper and lower sternal border Right hand freight broker is improved; he can nearly raise the right arm over his head. Right leg with improved hip flexion, but still noted weakness when compared to contralateral leg. Overall, has made gains with PT. Discussed need for continued PT. Also discussed safety measures to prevent falls. Reviewed findings on his echocardiogram and need for follow up. Reviewed medication recommendations. We talked about options including Affymax $4 medication list. Resident Activity Tracking Resident Involvement: Resident Care Provided Care Provided: Adult [facility] Medicine
== END 2024-03-16 10:45 | disposition home or self-care (01) | DRG 61 ==
LOC: SUATTDRO → ED 16:50 → SUATTDRO 19:22 → 1E 19:22 → 2N 02-01 12:41 → 3W 02-27 00:14 → 3E 02-29 19:25